=== PATIENT | female | born 1940 | race Caucasian/White ===

== ENCOUNTER 2020-05-06 08:02 | Outpatient (REF) | payer MEDICARE, OTHER, SELFPAY | END 2020-05-06 08:03 | disposition home or self-care (01) | LOC: HO.LAB 08:02 | PROVIDERS: PCP Internal Medicine; Visit Provider Internal Medicine | DX: Z20.828 Contact with and (suspected) exposure to other viral communicable diseases (principal) | CPT/HCPCS: U0003 ==

== ENCOUNTER 2021-03-13 08:26 | Outpatient (REF) | payer MEDICARE, OTHER, SELFPAY ==
--- NOTE | ~2021-03-13 | MM_ITS ---
EXAMINATION: MM SCREENING DIGITAL BREAST TOMOSYNTHESIS, BILATERAL CLINICAL INFORMATION: Screening. Asymptomatic. The lifetime risk of breast cancer based on the Tyrer-Cuzick Model is 2%. COMPARISON: Mammography: 03/07/2020, 03/02/2019, 01/21/2018 TECHNIQUE: Digital breast tomosynthesis is performed in both the craniocaudal and mediolateral oblique views along with computer-aided detection (CAD). Synthesized 2D images are generated from the tomosynthesis. Additional right MLO view is provided. FINDINGS: There are scattered areas of fibroglandular density (ACR BI-RADS breast composition Category b). There are no significant masses, abnormal calcifications, or other abnormalities. Parenchymal pattern is similar to prior studies. No developing density. The axilla and skin contours are unremarkable. MM/MM tomosynthesis screening BI IMPRESSION: No mammographic evidence of malignancy. ASSESSMENT: BI-RADS 1: Negative RECOMMENDATION: Routine annual mammography screening. This patient's information was entered into a reminder system with a target due date for their next mammogram.
== END 2021-03-13 08:27 | disposition home or self-care (01) ==
LOC: HO.MAMMO 08:26
PROVIDERS: PCP Internal Medicine; Visit Provider Internal Medicine
DX: Z12.31 Encounter for screening mammogram for malignant neoplasm of breast (principal)
CPT/HCPCS: 77063; 77067

== ENCOUNTER 2021-06-16 15:26 | Outpatient (REF) | payer MEDICARE, OTHER, SELFPAY ==
--- NOTE | ~2021-06-16 | US_ITS ---
EXAMINATION: US VENOUS ULTRASOUND WITH DOPPLER LOWER EXTREMITY, LEFT CLINICAL INFORMATION: Left leg edema. COMPARISON: None TECHNIQUE: Ultrasound of the deep veins is performed from the hip to the calf with compression sonography and color and pulse Doppler assessment. Spectral analysis with color-flow imaging is performed. FINDINGS: There is normal venous compression and respiratory variation and augmented flow. The visualized common femoral vein, superficial femoral vein, profunda femoral vein, popliteal vein, and the trifurcation region shows no evidence of deep venous thrombosis. There is no significant popliteal fossa cyst. Normal sized lymph node with a central echogenic fatty hilum, a benign morphologic feature, seen in the left proximal thigh. If the patient's symptoms persist, followup ultrasound in 5 days 7 days might be of value to exclude proximal propagation from a non-visualized calf vein. US/US venous duplex LE IMPRESSION: No DVT demonstrated in the left lower extremity.
== END 2021-06-16 15:27 | disposition home or self-care (01) ==
LOC: HO.US 15:26
PROVIDERS: Visit Provider Physician Assistant
DX: R60.0 Localized edema (principal)
CPT/HCPCS: 93971

== ENCOUNTER 2022-03-19 09:19 | Outpatient (REF) | payer MEDICARE, OTHER, SELFPAY ==
--- NOTE | ~2022-03-19 | MM_ITS ---
EXAMINATION: MM SCREENING DIGITAL BREAST TOMOSYNTHESIS, BILATERAL CLINICAL INFORMATION: Screening. Asymptomatic. The lifetime risk of breast cancer based on the Tyrer-Cuzick Model is under 2%. COMPARISON: Mammography: 03/13/2021, 03/07/2020, 03/02/2020 TECHNIQUE: Digital breast tomosynthesis is performed in both the craniocaudal and mediolateral oblique views along with computer-aided detection (CAD). Synthesized 2D images are generated from the tomosynthesis. FINDINGS: There are scattered areas of fibroglandular density (ACR BI-RADS breast composition Category b). There are no significant masses, abnormal calcifications, or other abnormalities. Parenchymal pattern is similar to prior studies. There is no developing density or architectural abnormality. The axilla and skin contours are unremarkable. No significant changes. MM/MM tomosynthesis screening BI IMPRESSION: No mammographic evidence of malignancy. ASSESSMENT: BI-RADS 1: Negative RECOMMENDATION: Routine annual mammography screening. This patient's information was entered into a reminder system with a target due date for their next mammogram.
== END 2022-03-19 09:20 | disposition home or self-care (01) ==
LOC: HO.MAMMO 09:19
PROVIDERS: PCP Internal Medicine; Visit Provider Internal Medicine
DX: Z12.31 Encounter for screening mammogram for malignant neoplasm of breast (principal)
CPT/HCPCS: 77063; 77067

== ENCOUNTER 2022-06-15 09:37 | Outpatient (REF) | payer MEDICARE, OTHER, SELFPAY ==
[2022-06-15 14:35] LABS: Anion Gap 12 (12-20); Blood Urea Nitrogen 20 mg/dL (9-16); Calcium 9.4 mg/dL (8.4-10.2); Carbon Dioxide 30 mmol/L (22-29); Chloride 92 mmol/L (96-108); Estimated Glomerular Filt Rate > 60; Glucose Random 101 mg/dL (60-115); Potassium 3.4 mmol/L (3.3-5.1); Sodium 131 mmol/L (135-145)
== END 2022-06-15 09:38 | disposition home or self-care (01) ==
LOC: HO.MANLDS 09:37
PROVIDERS: Visit Provider Internal Medicine
DX: E87.6 Hypokalemia (principal)
CPT/HCPCS: 36415; 80048

== ENCOUNTER → 2022-09-08 08:40 | Outpatient (BNVA) | payer MEDICARE, OTHER, SELFPAY | PROVIDERS: PCP Internal Medicine; Referring Provider Internal Medicine; Visit Provider Internal Medicine Cardiovascular Disease | DX: I48.0 Paroxysmal atrial fibrillation (principal); I44.7 Left bundle-branch block, unspecified; Z95.2 Presence of prosthetic heart valve | CPT/HCPCS: 93005; 99202 ==

== ENCOUNTER → 2022-09-21 13:37 | Outpatient (REF) | payer MEDICARE, OTHER, SELFPAY ==
--- NOTE | 2022-09-21 13:40 | HM_ITS ---
Conclusion: 1. Patient was monitored for total period of 6 days and 16 hours 2. There is artifact and loss of data about 12.4% of the time 3. Baseline was normal sinus rhythm with average heart of 81 beats per minute with underlying bundle-branch block 4. No significant pauses were identified during identifiable strips 5. No obvious episodes of atrial fibrillation noted 6. Total of 48,024 PACs accounting for 7.1% of total beats account for frequent PACs. Very frequent short runs of SVT with longest lasting 9 beats and the fastest 154 beats per minute 7. Total of 40,038 PVCs accounting for about 6% total beats account for frequent PVCs 8. No patient reported events MTDD
--- NOTE | 2022-09-21 13:40 | CA_ITS ---
Transthoracic Echocardiogram Patient (Last, First, Middle): Michelle Lai, Gender: Female Date of : 1940 Age: 82 Procedure Date: 09/21/2022 Procedure Type: Transthoracic Echocardiogram Location: OP Height: 162. cm Weight: 66.23 kg BSA: 1.71 m2 Heart Rate: 65 bpm BP: 120 / 70 mmHg Mail Teller: MAKENZIE Referring MD: Gagan Barnard MD Donor Support Technician: Gagan Barnard MD Symptoms: Z95.2 - Presence of prosthetic heart valve Study Quality: Adequate ECG Rhythm: normal sinus rhythm with frequent ectopy Conclusions: - 1. Normal LV systolic function with impaired relaxation filling pattern with elevated filling pressures 2. Normally function bioprosthetic aortic valve with mean gradient of 8 mmHg 3. Normal RV systolic pressure 4. [id number] mitral regurgitation 5. No pericardial effusion Findings Left Ventricle Normal left ventricular size, thickness, and systolic function. The visually estimated ejection fraction is between 55-60%. Spectral Doppler is indicative of an impaired relaxation filling pattern. Elevated left ventricular end diastolic pressure. E/E prime ratio is >15, consistent with elevated filling pressures. Right Ventricle Normal right ventricular cavity size and systolic function. Atria The left atrium is likely dilated. There is no evidence of interatrial shunt. The right atrium is normal in size. Aortic Valve A bioprosthetic aortic valve is present. The prosthetic aortic valve appears to be functioning normally. The mean gradient is 8 mmHg. the valve is well seated with no abnormal rocking motion Mitral Valve There is mild anterior and posterior mitral leaflet thickening. There is mild mitral annular calcification. There is mild to moderate mitral valve regurgitation. There is no mitral valve stenosis. Pulmonic Valve The pulmonic valve was not well visualized. Tricuspid Valve Likely normal tricuspid valve structure and function. There is mild tricuspid valve regurgitation. The right ventricular systolic pressure is normal. The right ventricular systolic pressure is 27 mmHg. Normal right atrial pressure. There is no evidence of pulmonary hypertension. Great Vessels All visible segments of the aorta are normal in size. The pulmonary artery was not well visualized. Venous The inferior vena cava is normal in size and collapses greater than 50% with inspiration. Pericardium/Pleural There is no evidence of pericardial effusion. Prior Study Comparison No prior study available for comparison. Measurements 2D Linear Measurements IVSd: 0.96 0.6-0.9/0.6-1.0 cm LVIDd: 4.94 3.9-5.3/4.2-5.9 cm LVIDd Index: 2.89 2.4-3.2/2.2-3.1 cm/m2 LVIDs: 3.44 2.0-3.6 cm LVPWd: 0.98 0.7-1.1 cm LA Diam: 4.40 2.7-3.8/3.0-4.0 cm LAIDs Index: 2.57 1.5-2.3 cm/m2 LV Mass: 213.61 67-162/88-224 g LV Mass Index: 124.92 43-95/49-115 g/m2 LVOT Diam: 1.70 3.0+(-)1.3 cm 2D Systolic Function EF 4C: 54.90 >55% EF 2C: 57.90 >55% EF BiP: 55.70 >55% Mitral Valve MV Pk E: 0.93 MV PK A: 1.05 MV Decel Time: 237.00 E/A: 0.90 E'Lateral: 3.24 E'Medial: 4.54 E/E' Med: 20.60 E/E' Lat: 28.80 PHT: 69.00 MVA PHT: 3.19 Decel [place]: 3.95 Aortic Valve AoV Pk Mamadou: 1.83 AoV Mn Mamadou: 1.36 AoV VTI: 0.35 AoV Pk Grad: 13.00 Aov Mn Grad: 8.00 KALA Cont.VTI: 1.41 LVOT LVOT Pk Mamadou: 1.07 LVOT Mn Mamadou: 0.75 LVOT VTI: 0.22 LVOT Pk Grad: 5.00 LVOT Mn Grad: 3.00 LVOT Diam: 1.70 LVOT Area: 2.27 Diastolic Function MV Pk E: 0.93 MV Pk A: 1.05 E/A: 0.90 E'Medial: 4.54 E/E' Med: 20.60 E' Laterial: 3.24 E/E' Lat: 28.80 Right Ventricle TAPSE (mm): 26.00 TVS' Mamadou: 11.20 Tricuspid Valve TR Pk Mamadou: 2.44 TR Pk Grad: 24.00 RA Press: 3.00 RVSP: 27.00 Great Vessels Aorta Sinus of Valsalva: 2.60 2.0-3.5 cm Ao Asc: 3.40 2.1-3.4 cm Pulmonary Valve PV Pk Mamadou: 1.02 Peak PV Grad: 4.00 Updated in Other Vendor System with Status of Final Gagan Barnard MD electronically signed on 09/21/2022 4:52:00 PM with status of Final
== END ==
LOC: HO.CARD 13:37
PROVIDERS: PCP Internal Medicine; Visit Provider Internal Medicine Cardiovascular Disease
DX: I48.0 Paroxysmal atrial fibrillation (principal); Z95.2 Presence of prosthetic heart valve
CPT/HCPCS: 93242; 93306

== ENCOUNTER 2022-09-26 08:34 | Inpatient (IN) | payer MEDICARE, OTHER, SELFPAY ==
[2022-09-26] VITALS (16 sets, daily range): BP systolic 122–177; BP diastolic 63–112; PULSE 74–92; RESP 14–20; TEMP 36.4–37.2; O2SAT 93–97; BMI 25.0; BMI 25.4
--- NOTE | ~2022-09-26 | XR_ITS ---
EXAMINATION: XR CHEST CLINICAL INFORMATION: Cough. COMPARISON: None available. TECHNIQUE: 2 views of the chest were obtained. FINDINGS: The lungs are expanded and clear. The heart size and pulmonary vascularity is normal. Aortic valve stent and alarm security or surveillance monitor overlying the left upper chest wall. No gross bony abnormality seen. XR/XR chest 2V IMPRESSION: No acute cardiopulmonary process seen.
--- NOTE | 2022-09-26 09:17 | ED_ITS ---
HPI - Syncope General Chief Complaint: Syncope Stated Complaint: chest cold Time Seen by Provider: 09/26/22 09:16 Source: patient and family Mode of arrival: wheelchair Limitations: no limitations History of Present Illness HPI narrative: 82 yo female with history of afib on eliquis, HTN, known LBBB, TAVR secondary to aortic stenosis here with complaints of cough, chest congestion, wheezing x 1 week. Her partner has had similar symptoms. No fevers, chest pain, shortness of breath, leg swelling or pain. Cough is worsened at nighttime. Did travel to [place] about a month ago. Has not done any COVID testing. Is supposed to be using an inhaler daily (unsure of name) but does not use it because it costs 90 dollars. Today while having a bowel movement on the toilet she developed cold sweats and felt lightheaded and laid herself on the floor to call her partner. Per patient he brought her walker and while she was sitting in the walker she continued to feel lightheaded/have sweats and states he told me my head rolled back and I briefly passed out. There was no fall to the ground or injury. Denies associated headache, vomiting, palpitations, chest pain. Of note, patient recently started care with a photo optics technician [place] at [facility] ([place]). She states she has been doing well since having her TAVR with no cardiac complaints. States he wanted to get his own tests so I had an echocardiogram this week and have a holter monitor in place. Related Data Home Medications Medication Instructions Recorded Confirmed apixaban 5 mg tablet (Eliquis) 5 mg PO BID 09/08/22 09/26/22 chlorthalidone 25 mg tablet 25 mg PO DAILY 09/08/22 09/26/22 fluticasone propionate 50 1 spray intranasal BID 09/08/22 09/26/22 mcg/actuation nasal spray,suspension metoprolol succinate 50 mg 50 mg PO DAILY 09/08/22 09/26/22 tablet,extended release 24 hr Allergies Allergy/AdvReac Type Severity Reaction Status Date / Time No Known Drug Allergies Allergy none Verified 09/08/22 08:59 Review of Systems Review of Systems: Yes all other systems are reviewed and are negative Constitutional: Constitutional: Reports no additional constitutional complaints, Denies body ache(s), Denies chills, Denies fever(s), Denies headache(s) and Denies weakness Eyes: Eyes: Reports no additional eye complaints and Denies change in vision ENT: Reports system reviewed and no additional complaints, except as documented, Reports dizziness, Denies headache(s), Reports nasal congestion, Denies nasal discharge and Denies neck pain Cardiovascular: Cardiovascular: Reports no additional cardiovascular complaints, Denies chest pain, Reports syncope, Denies leg edema and Denies dyspnea Respiratory: Respiratory: Reports no additional respiratory complaints, Reports cough, Denies dyspnea and Reports wheezing Gastrointestinal: Gastrointestinal: Reports no additional gastrointestinal complaints, Denies abdominal pain, Denies diarrhea, Denies nausea and Denies v omiting Genitourinary: Genitourinary: Reports no additional female genitourinary complaints and Denies urinary incontinence Musculoskeletal: Musculoskeletal: Reports no additional musculoskeletal complaints, Denies back pain, Denies arthralgias, Denies joint swelling, Denies neck pain, Denies numbness and Denies tingling Integumentary/Breasts: Skin/Breast: Reports system reviewed and no additional complaints, except as docu and Denies rash Neurologic: Reports system reviewed and no additional complaints, except as documented, Denies Abnormal speech present, Reports dizziness, Reports syncope, Denies headache(s), Denies numbness, Denies tingling and Denies weakness Allergic/Immunologic: Allergic/Immunologic: Reports wheezing PMFSH Past Medical History Attestation statement: The following information was validated with the patient. Source: old records reviewed and nursing notes reviewed Medical History HTN (hypertension) Paroxysmal atrial fibrillation Surgical History History of appendectomy History of hysterectomy S/P TAVR (transcatheter aortic valve replacement) Family History Family History Mother No problems noted. Father Bladder cancer Daughter Autoimmune disease Social History Social History Alcohol intake: current Alcohol intake frequency: 0-2 drinks per day Alcohol type: wine and hard liquor Patient Tobacco Use Status: Former Tobacco user Years Smoked: 10 +/- Smoked in Last 30 Days: No Use of substances other than those prescribed or required for medical reasons: No Advance Directives: No Nutrition Risks: No Nutritional Risk Physical Exam Vital Signs: Vital Signs: Last Vital Signs Temp 98.0 F 09/26/22 13:27 Pulse 84 09/26/22 13:27 Resp 17 09/26/22 13:27 BP 139/65 09/26/22 13:27 Pulse Ox 93 09/26/22 13:27 O2 Del Method Room Air 09/26/22 13:27 BMI result Body Mass Index 25.0 Const: General: cooperative, healthy appearing, comfortable and no acute distress Orientation/consciousness: patient oriented x3 Limitations: no limitations HEENT: Head: Yes normal to inspection Ears: hearing grossly normal bilaterally and TM's normal bilaterally General nose exam: Normal external nose present Face and sinus: Yes normal facial exam Mouth: Normal oral and palatal mucosa present Throat: Yes posterior oropharynx normal, Yes tonsils normal and Yes uvula midline Eyes: General: appearance normal, both eyes and all related structures Pupils: Equal, round and reactive pupils present Neck: Neck: Yes normal visual inspection Chest: Chest palpation & inspection: normal inspection of the chest Resp: Other: Mild exp wheezing Effort & Inspection: normal respiratory effort Cardio: Rate: regular rate Rhythm: regular rhythm Peripheral pulses: Peripheral pulses 2+ throughout GI: Inspection: Yes normal to inspection Palpation (GI): Soft to palpation and nontender Auscultation: normal bowel sounds Back/Spine/Pelvis: Thoracic/Lumbar Spine: thoracic and lumbar spine normal to inspection Skin: General skin exam: no rashes or lesions noted Neuro: General: patient oriented x3, moves all extremities, no focal motor deficits and normal sensation to monofilament Cranial nerves: Yes CN's II-XII intact bilaterally, Yes Equal, round and reactive pupils present, Yes Bilaterally intact EOM present, Yes Nystagmus not present, Yes Normal facial strength present and Yes Midline tongue present Cognition (Neuro): normal cognition Speech: No Abnormal speech present Gait exam (Neuro): Normal gait present Motor exam (neuro): 5/5 motor strength present throughout Sensory Exam: Normal double simultaneous stimulation for sensation Extrem: General: Yes normal to inspection, Yes no pedal edema and Yes no calf tenderness Medications Administered Generic Name Dose Route Start Last Admin Trade Name Freq PRN Reason Stop Dose Admin Apixaban 5 mg 09/26/22 12:35 09/26/22 12:59 Apixaban 5 Mg Tablet PO 5 mg BID SOPHIA Administration Discontinued Medications Generic Name Dose Route Start Last Admin Trade Name Evens PRN Reason Stop Dose Admin Albuterol Sulfate 2 puff 09/26/22 09:39 09/26/22 11:24 Albuterol Sulfate 90 Mcg 8 Gm Inhaler INHALE 09/26/22 09:40 2 puff ONCE ONE Administration Sodium Chloride 1,000 mls @ 999 mls/hr 09/26/22 11:45 09/26/22 12:55 Ns IV 09/26/22 12:45 999 mls/hr .Q1H1M SOPHIA Administration Metoprolol Succinate 50 mg 09/26/22 12:35 09/26/22 13:27 Metoprolol Succinate Er 50 Mg Tab.Er.24h PO Not Given DAILY SOPHIA Protocol Medical Decision Making Medical Decision Making [facility] Narrative: 82 yo female here with 1 week of cough, chest congestion, wheezing with recent sick contact. This morning while having a BM patient initially had a near syn copal episode followed by a witnessed syncopal episode while at rest by family. On arrival A&Ox4. Normal neuro exam. LS with mild exp wheezing throughout. VSS. Will obtain EKG, labs, orthostatics, CXR, viral testing Will give albuterol MDI Differential Diagnosis Differential Diagnoses: The differential diagnosis associated with the presentation includes anemia, electrolyte abnormality, orthostatic hypotension, acs, arrhythmia less likely SAH PNA, viral syndrome, CHF, less likely PE Admission/Observation Consideration of admission/observation: Escalation of care including admission/observation considered Patient with hyponatremia, syncope w/ [place] syncope score 3. Consult Healthcare Provider Management of the patient was discussed with: Hospitalist Spoke to Dr Lemus who accepted admission Lab Data [facility] Lab Attestation statement: I reviewed the patient's lab results. 09/26/22 09:57 09/26/22 09:57 Labs: Lab Results 09/26/22 09/26/22 09/26/22 Range/Units 05:02 09:53 09:57 WBC 6.6 (4.8-10.8) X10*3/uL RBC 4.55 (4.20-5.50) X10*6/uL Hgb 14.0 (12.0-16.0) g/dl Hct 39.8 (37.0-47.0) % MCV 87.5 (80.0-98.0) fL MCH 30.8 (27.0-33.0) pg MCHC 35.2 H (31.0-35.0) g/dl RDW 12.5 (11.0-16.0) % Plt Count 166 (160-400) X10*3/uL MPV 9.8 (9.4-12.3) fL Immature Gran % (Auto) 0.6 H (0.0-0.4) % Neut % (Auto) 80.9 H (45-73) % Lymph % (Auto) 8.5 L (20-40) % [place] % (Auto) 8.4 (2-11) % Eos % (Auto) 1.1 (0-4) % Baso % (Auto) 0.5 (0-2) % Lymph # (Auto) 0.6 L (1.2-4.9) X10*3/uL [place] # (Auto) 0.6 (0.1-1.2) X10*3/uL Eos # (Auto) 0.1 (0.0-0.4) X10*3/uL Baso # (Auto) 0.0 (0.0-0.2) X10*3/uL Abs Immat Gran (auto) 0.04 H (0.00-0.03) X10*3/uL Absolute Neuts (auto) 5.3 (2.0-8.3) x10*3/uL Absolute Nucleated RBC 0.000 (0.0-0.012) X10*3/uL Nucleated RBC % (auto) 0.0 (0.0-0.2) /100WBC PT (10.0-13.1) SEC INR (0.9-1.1) Sodium (135-145) mmol/L Potassium (3.3-5.1) mmol/L Chloride (96-108) mmol/L Carbon Dioxide (22-29) mmol/L Anion Gap (12-20) BUN (9-16) mg/dL Creatinine (0.5-1.4) mg/dL Estim Creat Clear Calc Estimated GFR Random Glucose (60-115) mg/dL Osmolality (281-305) mosm/kg Calcium (8.4-10.2) mg/dL Magnesium (1.6-2.6) mg/dL Total Bilirubin (0.0-1.0) mg/dL Direct Bilirubin (0.0-0.5) mg/dL AST (5-31) U/L ALT (0-31) U/L Alkaline Phosphatase (39-117) U/L Troponin I High Sens (<3.5-17.0) ng/L B-Natriuretic Peptide (<100) pg/mL Total Protein (6.5-8.0) g/dL Albumin (3.5-5.0) g/dL Urine Color Urine Appearance Urine pH (5.0-9.0) Ur Specific [place] (1.005-1.025) Urine Protein (Neg-Trace) mg/dL Urine Glucose (UA) (Negative) mg/dL Urine Ketones (Negative) mg/dL Urine Blood (Negative) Urine Nitrite (Negative) Ur Leukocyte Esterase (Negative) Urine RBC (0-2) /HPF Urine WBC (0-5) /HPF Ur Squamous Epith Cells (0-2) /HPF Urine Bacteria (None Seen) Hyaline Casts (0-2) /LPF Urine Osmolality 658 (373-1093) mosm/kg Ur Random Sodium mmol/L Influenza Type A (PCR) NEGATIVE (Negative) Influenza Type B (PCR) NEGATIVE (Negative) RSV RNA Qual (PCR) NEGATIVE (Negative) SARS-CoV-2 RNA (RT-PCR) NEGATIVE (Negative) 09/26/22 09/26/22 09/26/22 Range/Units 09:57 09:57 10:42 WBC (4.8-10.8) X10*3/uL RBC (4.20-5.50) X10*6/uL Hgb (12.0-16.0) g/dl Hct (37.0-47.0) % MCV (80.0-98.0) fL MCH (27.0-33.0) pg MCHC (31.0-35.0) g/dl RDW (11.0-16.0) % Plt Count (160-400) X10*3/uL MPV (9.4-12.3) fL Immature Gran % (Auto) (0.0-0.4) % Neut % (Auto) (45-73) % Lymph % (Auto) (20-40) % [place] % (Auto) (2-11) % Eos % (Auto) (0-4) % Baso % (Auto) (0-2) % Lymph # (Auto) (1.2-4.9) X10*3/uL [place] # (Auto) (0.1-1.2) X10*3/uL Eos # (Auto) (0.0-0.4) X10*3/uL Baso # (Auto) (0.0-0.2) X10*3/uL Abs Immat Gran (auto) (0.00-0.03) X10*3/uL Absolute Neuts (auto) (2.0-8.3) x10*3/uL Absolute Nucleated RBC (0.0-0.012) X10*3/uL Nucleated RBC % (auto) (0.0-0.2) /100WBC PT 13.4 H (10.0-13.1) SEC INR 1.2 H (0.9-1.1) Sodium 126 L (135-145) mmol/L Potassium 3.3 (3.3-5.1) mmol/L Chloride 85 L (96-108) mmol/L Carbon Dioxide 28 (22-29) mmol/L Anion Gap 16 (12-20) BUN 12 (9-16) mg/dL Creatinine 0.68 (0.5-1.4) mg/dL Estim Creat Clear Calc 59.7 Estimated GFR > 60 Random Glucose 107 (60-115) mg/dL Osmolality (281-305) mosm/kg Calcium 8.8 D (8.4-10.2) mg/dL Magnesium 2.3 (1.6-2.6) mg/dL Total Bilirubin 0.8 (0.0-1.0) mg/dL Direct Bilirubin 0.2 (0.0-0.5) mg/dL AST 23 (5-31) U/L ALT 13 (0-31) U/L Alkaline Phosphatase 53 (39-117) U/L Troponin I High Sens (<3.5-17.0) ng/L B-Natriuretic Peptide 111 H (<100) pg/mL Total Protein 6.2 L (6.5-8.0) g/dL Albumin 4.0 (3.5-5.0) g/dL Urine Color Urine Appearance Urine pH (5.0-9.0) Ur Specific [place] (1.005-1.025) Urine Protein (Neg-Trace) mg/dL Urine Glucose (UA) (Negative) mg/dL Urine Ketones (Negative) mg/dL Urine Blood (Negative) Urine Nitrite (Negative) Ur Leukocyte Esterase (Negative) Urine RBC (0-2) /HPF Urine WBC (0-5) /HPF Ur Squamous Epith Cells (0-2) /HPF Urine Bacteria (None Seen) Hyaline Casts (0-2) /LPF Urine Osmolality (373-1093) mosm/kg Ur Random Sodium mmol/L Influenza Type A (PCR) (Negative) Influenza Type B (PCR) (Negative) RSV RNA Qual (PCR) (Negative) SARS-CoV-2 RNA (RT-PCR) (Negative) 09/26/22 09/26/22 09/26/22 Range/Units 10:42 10:47 12:15 WBC (4.8-10.8) X10*3/uL RBC (4.20-5.50) X10*6/uL Hgb (12.0-16.0) g/dl Hct (37.0-47.0) % MCV (80.0-98.0) fL MCH (27.0-33.0) pg MCHC (31.0-35.0) g/dl RDW (11.0-16.0) % Plt Count (160-400) X10*3/uL MPV (9.4-12.3) fL Immature Gran % (Auto) (0.0-0.4) % Neut % (Auto) (45-73) % Lymph % (Auto) (20-40) % [place] % (Auto) (2-11) % Eos % (Auto) (0-4) % Baso % (Auto) (0-2) % Lymph # (Auto) (1.2-4.9) X10*3/uL [place] # (Auto) (0.1-1.2) X10*3/uL Eos # (Auto) (0.0-0.4) X10*3/uL Baso # (Auto) (0.0-0.2) X10*3/uL Abs Immat Gran (auto) (0.00-0.03) X10*3/uL Absolute Neuts (auto) (2.0-8.3) x10*3/uL Absolute Nucleated RBC (0.0-0.012) X10*3/uL Nucleated RBC % (auto) (0.0-0.2) /100WBC PT (10.0-13.1) SEC INR (0.9-1.1) Sodium (135-145) mmol/L Potassium (3.3-5.1) mmol/L Chloride (96-108) mmol/L Carbon Dioxide (22-29) mmol/L Anion Gap (12-20) BUN (9-16) mg/dL Creatinine (0.5-1.4) mg/dL Estim Creat Clear Calc Estimated GFR Random Glucose (60-115) mg/dL Osmolality 259 L (281-305) mosm/kg Calcium (8.4-10.2) mg/dL Magnesium (1.6-2.6) mg/dL Total Bilirubin (0.0-1.0) mg/dL Direct Bilirubin (0.0-0.5) mg/dL AST (5-31) U/L ALT (0-31) U/L Alkaline Phosphatase (39-117) U/L Troponin I High Sens 19.3 H (<3.5-17.0) ng/L B-Natriuretic Peptide (<100) pg/mL Total Protein (6.5-8.0) g/dL Albumin (3.5-5.0) g/dL Urine Color Yellow Urine Appearance Clear Urine pH 7.0 (5.0-9.0) Ur Specific [place] 1.020 (1.005-1.025) Urine Protein Trace (Neg-Trace) mg/dL Urine Glucose (UA) Negative (Negative) mg/dL Urine Ketones 15 (Negative) mg/dL Urine Blood Negative (Negative) Urine Nitrite Negative (Negative) Ur Leukocyte Esterase Large (3+) H (Negative) Urine RBC 3-5 H (0-2) /HPF Urine WBC 6-10 H (0-5) /HPF Ur Squamous Epith Cells 6-10 (0-2) /HPF Urine Bacteria None Seen (None Seen) Hyaline Casts 0-2 (0-2) /LPF Urine Osmolality (373-1093) mosm/kg Ur Random Sodium mmol/L Influenza Type A (PCR) (Negative) Influenza Type B (PCR) (Negative) RSV RNA Qual (PCR) (Negative) SARS-CoV-2 RNA (RT-PCR) (Negative) 09/26/22 Range/Units 12:15 WBC (4.8-10.8) X10*3/uL RBC (4.20-5.50) X10*6/uL Hgb (12.0-16.0) g/dl Hct (37.0-47.0) % MCV (80.0-98.0) fL MCH (27.0-33.0) pg MCHC (31.0-35.0) g/dl RDW (11.0-16.0) % Plt Count (160-400) X10*3/uL MPV (9.4-12.3) fL Immature Gran % (Auto) (0.0-0.4) % Neut % (Auto) (45-73) % Lymph % (Auto) (20-40) % [place] % (Auto) (2-11) % Eos % (Auto) (0-4) % Baso % (Auto) (0-2) % Lymph # (Auto) (1.2-4.9) X10*3/uL [place] # (Auto) (0.1-1.2) X10*3/uL Eos # (Auto) (0.0-0.4) X10*3/uL Baso # (Auto) (0.0-0.2) X10*3/uL Abs Immat Gran (auto) (0.00-0.03) X10*3/uL Absolute Neuts (auto) (2.0-8.3) x10*3/uL Absolute Nucleated RBC (0.0-0.012) X10*3/uL Nucleated RBC % (auto) (0.0-0.2) /100WBC PT (10.0-13.1) SEC INR (0.9-1.1) Sodium (135-145) mmol/L Potassium (3.3-5.1) mmol/L Chloride (96-108) mmol/L Carbon Dioxide (22-29) mmol/L Anion Gap (12-20) BUN (9-16) mg/dL Creatinine (0.5-1.4) mg/dL Estim Creat Clear Calc Estimated GFR Random Glucose (60-115) mg/dL Osmolality (281-305) mosm/kg Calcium (8.4-10.2) mg/dL Magnesium (1.6-2.6) mg/dL Total Bilirubin (0.0-1.0) mg/dL Direct Bilirubin (0.0-0.5) mg/dL AST (5-31) U/L ALT (0-31) U/L Alkaline Phosphatase (39-117) U/L Troponin I High Sens (<3.5-17.0) ng/L B-Natriuretic Peptide (<100) pg/mL Total Protein (6.5-8.0) g/dL Albumin (3.5-5.0) g/dL Urine Color Urine Appearance Urine pH (5.0-9.0) Ur Specific [place] (1.005-1.025) Urine Protein (Neg-Trace) mg/dL Urine Glucose (UA) (Negative) mg/dL Urine Ketones (Negative) mg/dL Urine Blood (Negative) Urine Nitrite (Negative) Ur Leukocyte Esterase (Negative) Urine RBC (0-2) /HPF Urine WBC (0-5) /HPF Ur Squamous Epith Cells (0-2) /HPF Urine Bacteria (None Seen) Hyaline Casts (0-2) /LPF Urine Osmolality (373-1093) mosm/kg Ur Random Sodium 51.0 mmol/L Influenza Type A (PCR) (Negative) Influenza Type B (PCR) (Negative) RSV RNA Qual (PCR) (Negative) SARS-CoV-2 RNA (RT-PCR) (Negative) Independent Interpretation I performed an independent interpretation of an: EKG and Plain X-Ray Interpretation: I independently reviewed the EKG which shows a sinus rhythm with a rate 93 with PVCs, nonspecific intraventricular block with QRS 136, QTC 477 I independently reviewed the x-rays again with radiologist report Radiology Impression Discussion of test interpretation with radiology: I have reviewed the radiologist's reading. External Record Review External record reviewed: Outpatient record and Prior outpatient radiology Had cardiac cath 11/2020 as part of preop clearance for TAVR which showed [id number] coronary artery disease (LAD <30%, RCA <30%) Had echocardiogram 09/21/2022 which showed normal LV systolic function, normal functioning aortic valve, normal RV systolic pressure, mild to moderate mitral regurgitation, no pericardial effusion, EF 55-60% Discharge Plan Discharge Clinical Impression: Syncope, Acute hyponatremia Patient Disposition: Admitted As Inpatient
--- NOTE | 2022-09-26 09:20 | ECG_ITS ---
Test Reason : SYNCOPE Blood Pressure : / mmHG Vent. Rate : 093 BPM Atrial Rate : 093 BPM P-R Int : 164 ms QRS Dur : 136 ms QT Int : 384 ms P-R-T Axes : 059 -51 080 degrees QTc Int : 477 ms Sinus rhythm with Premature supraventricular complexes and with occasional Premature ventricular complexes Left axis deviation Non-specific intra-ventricular conduction block Possible Anterolateral infarct , age undetermined Abnormal ECG No previous ECGs available Referred By: Shahrzad Miller Electronically Signed By:JEFFRY SRIVASTAVA MD
--- NOTE | 2022-09-26 10:02 | PC.NURSE ---
pt AOx3, reporting persistent cough, diaphoresis and 2x syncope today. IV inserted, labs drawn. X ray with patient. call ibanez within reach will continue monitor
[2022-09-26 10:06] LABS: MANUAL DIFF FLAG NO
[2022-09-26 10:09] LABS: Basophils Percent Auto 0.5 % (0-2); Eosinophils Absolute Auto 0.1 X10*3/uL (0.0-0.4); Eosinophils Percent Auto 1.1 % (0-4); Hematocrit 39.8 % (37.0-47.0); Imm Gran Abs Auto 0.04 X10*3/uL (0.00-0.03); Imm Gran Pct Auto 0.6 % (0.0-0.4); Lymphocytes Absolute Auto 0.6 X10*3/uL (1.2-4.9); Lymphocytes Percent Auto 8.5 % (20-40); Mean Corpuscular HGB Conc 35.2 g/dl (31.0-35.0); Mean Corpuscular Hemoglobin 30.8 pg (27.0-33.0); Mean Corpuscular Volume 87.5 fL (80.0-98.0); Mean Platelet Volume 9.8 fL (9.4-12.3); Monocytes Absolute Auto 0.6 X10*3/uL (0.1-1.2); Monocytes Percent Auto 8.4 % (2-11); Neutrophils Absolute Auto 5.3 x10*3/uL (2.0-8.3); Neutrophils Percent Auto 80.9 % (45-73); Platelet Count 166 X10*3/uL (160-400); Red Blood Count 4.55 X10*6/uL (4.20-5.50); Red Cell Distribution Width 12.5 % (11.0-16.0); White Blood Count 6.6 X10*3/uL (4.8-10.8)
[2022-09-26 10:15] LABS: INTERNATIONAL NORM RATIO 1.2 (0.9-1.1); Prothrombin Time 13.4 SEC (10.0-13.1)
[2022-09-26 10:46] LABS: Influenza A PCR NEGATIVE (Negative); Influenza B PCR NEGATIVE (Negative); Resp Syncy Virus RNA Qual PCR NEGATIVE (Negative); SARS COV2 PCR INHOUSE NEGATIVE (Negative)
[2022-09-26 11:07] LABS: Alanine Aminotransferase 13 U/L (0-31); Alkaline Phosphatase 53 U/L (39-117); Anion Gap 16 (12-20); Aspartate Amino Transferase 23 U/L (5-31); Bilirubin Direct 0.2 mg/dL (0.0-0.5); Bilirubin Total 0.8 mg/dL (0.0-1.0); Blood Urea Nitrogen 12 mg/dL (9-16); Calcium 8.8 mg/dL (8.4-10.2); Carbon Dioxide 28 mmol/L (22-29); Chloride 85 mmol/L (96-108); Creatinine Clr Calc Pharmacy 59.7; Estimated Glomerular Filt Rate > 60; Glucose Random 107 mg/dL (60-115); Magnesium 2.3 mg/dL (1.6-2.6); Potassium 3.3 mmol/L (3.3-5.1); Sodium 126 mmol/L (135-145); Total Protein 6.2 g/dL (6.5-8.0)
[2022-09-26 11:13] LABS: Troponin-I High Sensitivity 19.3 ng/L (<3.5-17.0)
[2022-09-26] MEDS: Albuterol Sulfate 90 MCG 8 GM INHALER 2 PUFF INHALE (11:24)
[2022-09-26 12:07] LABS: Osmolality, Serum 259 mosm/kg (281-305)
[2022-09-26 12:09] LABS: B Type Natriuretic Peptide 111 pg/mL (<100)
[2022-09-26 12:27] LABS: Appearance Urine Clear; Color Urine Yellow; Glucose Urine UA Negative (Negative); Leukocyte Esterase Urine Large (3+) (Negative); Nitrite Urine Negative (Negative); UMIC TRIGGER UACC YES; Urine Blood Negative (Negative); Urine Ketones 15 mg/dL (Negative); Urine Protein Trace mg/dL (Neg-Trace)
[2022-09-26 12:29] LABS: Bacteria Urine None Seen (None Seen); Hyaline Casts Urine 0-2 /LPF (0-2); UACC Culture Trigger YES
--- NOTE | 2022-09-26 12:30 | P.HPHOSP_ITS ---
History of Present Illness Date of Service: 09/26/22 Chief Complaint: Weakness, URI An 82 years old lady with PMH of Afib on eliquis, TAVR, HTN who presents to the hospital complaining of 1 week of coughing and chest congestion complicated by fall and near syncope this morning. Reported that her partner has URI symptoms as well but this morning she went to herbathroom and developed cold sweats and felt lightheaded and too weak to stay up and had to lower her self down. once her frnd brought her the walker she stood up then seems to have syncope but denies losing conciousness. Denies any fever, chills, chest pain, palpitations, nausea, vomiting diarrhea or urinary symptoms. In ED found to have low Na level of 126 with no CXR. Admitted for further eval and treatment. Review of Systems Review of Systems: No fever, chills but reports generalized weakness No chest pain, palpitation No shortness of breath but has coughing No abdominal pain, nausea or vomiting No urinary symptoms No any rash or wounds PMFSH Medical History HTN (hypertension) Paroxysmal atrial fibrillation Family History Mother No problems noted. Father Bladder cancer Daughter Autoimmune disease Surgical History History of appendectomy History of hysterectomy S/P TAVR (transcatheter aortic valve replacement) Social History Alcohol intake: current Alcohol intake frequency: 0-2 drinks per day Alcohol type: wine and hard liquor Patient Tobacco Use Status: Former Tobacco user Years Smoked: 10 +/- Smoked in Last 30 Days: No Use of substances other than those prescribed or required for medical reasons: No Advance Directives: No Meds Allergies Allergy/AdvReac Type Severity Reaction Status Date / Time No Known Drug Allergies Allergy none Verified 09/08/22 08:59 Active Medications: Current Medications Acetaminophen (Acetaminophen 325 Mg Tablet) 650 mg PO Q6H PRN PRN Reason: Pain, Mild (Pain Scale 1-3) Sodium Chloride (Ns) 1,000 mls @ 999 mls/hr IV .Q1H1M [facility] Stop: 09/26/22 12:45 Ondansetron HCl (Ondansetron Hcl 4 Mg/2 Ml Vial) 4 mg IVPUSH Q8H PRN PRN Reason: Nausea and Vomiting Pharmacy Consult (Consult Rx Perform Med Rec) 1 each MISCELLANE ONCE PRN PRN Reason: Consult order Sodium Chloride (0.9 % Sodium Chloride Flush 3 Ml Syringe) 3 ml IVFLUSH QSHIFT [facility] Home Medications Medication Instructions Recorded Confirmed Last Taken Type apixaban 5 mg tablet (Eliquis) 5 mg PO BID 09/08/22 09/08/22 Unknown History chlorthalidone 25 mg tablet 25 mg PO DAILY 09/08/22 09/08/22 Unknown History fluticasone propionate 50 1 spray intranasal BID 09/08/22 09/08/22 Unknown History mcg/actuation nasal spray,suspension metoprolol succinate 50 mg 50 mg PO DAILY 09/08/22 09/08/22 Unknown History tablet,extended release 24 hr Physical Exam Vital Signs and Narrative: Vital Signs: Last Vital Signs Temp 98.4 F 09/26/22 12:17 Pulse 90 09/26/22 12:17 Resp 14 09/26/22 12:17 BP 153/75 H 09/26/22 12:17 Pulse Ox 97 09/26/22 12:17 O2 Del Method Room Air 09/26/22 12:17 BMI result Body Mass Index 25.0 Const: Other: Constitutional : Awake, interactive, not in distress Neck : Normal inspection, Supple Cardiovascular : RRR, no JVP, no lower extremity edema Respiratory : fair bilateral air entry, no crackles, scattered wheezes Gastrointestinal: soft, lax, Normal bowel sounds, Non tender Skin : Warm, Dry Neurological : Alert & oriented x3, No focal deficit Results Labs 09/26/22 09:57 09/26/22 10:42 Labs: Laboratory Results - last 24 hr 09/26/22 09/26/22 09/26/22 09:53 09:57 09:57 MCV 87.5 MCH 30.8 MCHC 35.2 H RDW 12.5 Plt Count 166 MPV 9.8 Immature Gran % (Auto) 0.6 H Neut % (Auto) 80.9 H Lymph % (Auto) 8.5 L Edmunds % (Auto) 8.4 Eos % (Auto) 1.1 Baso % (Auto) 0.5 Lymph # (Auto) 0.6 L Edmunds # (Auto) 0.6 Eos # (Auto) 0.1 Baso # (Auto) 0.0 Abs Immat Gran (auto) 0.04 H Absolute Neuts (auto) 5.3 Absolute Nucleated RBC 0.000 Nucleated RBC % (auto) 0.0 PT 13.4 H INR 1.2 H Anion Gap Estim Creat Clear Calc Estimated GFR Random Glucose Osmolality Calcium Magnesium Total Bilirubin Direct Bilirubin AST ALT Alkaline Phosphatase Troponin I High Sens B-Natriuretic Peptide Total Protein Albumin Urine Color Urine Appearance Urine pH Ur Specific [place] Urine Protein Urine Glucose (UA) Urine Ketones Urine Blood Urine Nitrite Ur Leukocyte Esterase Influenza Type A (PCR) NEGATIVE Influenza Type B (PCR) NEGATIVE RSV RNA Qual (PCR) NEGATIVE SARS-CoV-2 RNA (RT-PCR) NEGATIVE 09/26/22 09/26/22 09/26/22 09:57 10:42 10:42 MCV MCH MCHC RDW Plt Count MPV Immature Gran % (Auto) Neut % (Auto) Lymph % (Auto) Edmunds % (Auto) Eos % (Auto) Baso % (Auto) Lymph # (Auto) Edmunds # (Auto) Eos # (Auto) Baso # (Auto) Abs Immat Gran (auto) Absolute Neuts (auto) Absolute Nucleated RBC Nucleated RBC % (auto) PT INR Anion Gap 16 Estim Creat Clear Calc 59.7 Estimated GFR > 60 Random Glucose 107 Osmolality Calcium 8.8 D Magnesium 2.3 Total Bilirubin 0.8 Direct Bilirubin 0.2 AST 23 ALT 13 Alkaline Phosphatase 53 Troponin I High Sens 19.3 H B-Natriuretic Peptide 111 H Total Protein 6.2 L Albumin 4.0 Urine Color Urine Appearance Urine pH Ur Specific [place] Urine Protein Urine Glucose (UA) Urine Ketones Urine Blood Urine Nitrite Ur Leukocyte Esterase Influenza Type A (PCR) Influenza Type B (PCR) RSV RNA Qual (PCR) SARS-CoV-2 RNA (RT-PCR) 09/26/22 09/26/22 10:47 12:15 MCV MCH MCHC RDW Plt Count MPV Immature Gran % (Auto) Neut % (Auto) Lymph % (Auto) Edmunds % (Auto) Eos % (Auto) Baso % (Auto) Lymph # (Auto) Edmunds # (Auto) Eos # (Auto) Baso # (Auto) Abs Immat Gran (auto) Absolute Neuts (auto) Absolute Nucleated RBC Nucleated RBC % (auto) PT INR Anion Gap Estim Creat Clear Calc Estimated GFR Random Glucose Osmolality 259 L Calcium Magnesium Total Bilirubin Direct Bilirubin AST ALT Alkaline Phosphatase Troponin I High Sens B-Natriuretic Peptide Total Protein Albumin Urine Color Yellow Urine Appearance Clear Urine pH 7.0 Ur Specific [place] 1.020 Urine Protein Trace Urine Glucose (UA) Negative Urine Ketones 15 Urine Blood Negative Urine Nitrite Negative Ur Leukocyte Esterase Large (3+) H Influenza Type A (PCR) Influenza Type B (PCR) RSV RNA Qual (PCR) SARS-CoV-2 RNA (RT-PCR) Imaging Radiologist's Impressions: Impressions Chest X-Ray 09/26/22 10:10 IMPRESSION: No acute cardiopulmonary process seen. Assessment and Plan (1) Syncope: Status: Acute (2) Acute hyponatremia: Status: Acute (3) Paroxysmal atrial fibrillation: Status: Acute Plan An 82 years old lady with PMH of Afib on eliquis, TAVR, HTN who presents to the hospital complaining of 1 week of coughing and chest congestion complicated by fall and near syncope this morning. Acute on chronic hyponatremia baseline around 130, today down to 126 likely 2/2 dehydration and diuretics give IVF encourage PO intake follow BMP pending urine studies URI pending viral panel Duonebs ATC PRN Albuterol cough meds Syncope seems orthostatic vs vasovagal given decrease PO intake and coughing monitor BP during hospital stay Paroxysmal Afib rate controlled on case monitor per cardiology continue MEtoprolol and Apixaban HTN hold Chlorathalidone DVT PPx Eliquis Patient will likely need 2 overnight hospital stay for hyponatremia management. Time Spent With Patient Time: Total time managing care of this patient today ____ minutes. Quality Stroke Does the patient have a stroke diagnosis?: No VTE Prior VTE?: No VTE Risk Level:: Medical - moderate - high VTE Device Contraindication: Treatment Not Indicated VTE Drug Contraindication: N/A - Med Ordered
[2022-09-26 12:37] LABS: Osmolality Urine 658 mosm/kg (373-1093)
[2022-09-26] MEDS: 0.9 % Sodium Chloride 1,000 ML 999 ML IV (12:55)
[2022-09-26] MEDS: Apixaban 5 MG TABLET PO ×2 (12:59→21:43)
--- NOTE | 2022-09-26 13:11 | PHA.MEDREC ---
Pharmacy Consult ? Medication Reconciliation Pharmacy has completed the medication reconciliation. Confirmed meds with patient. Patient states they no longer take Flovent because the medication became too expensive for them.
[2022-09-26 14:26] LABS: Human metapneumovirus PCR Detected (Not Detect.)
[2022-09-26 14:27] LABS: Adenovirus PCR Not Detected (Not Detect.); Bordetella parapertussis PCR Not Detected (Not Detect.); Bordetella pertussis PCR Not Detected (Not Detect.); Chlamydia pneumoniae PCR Not Detected (Not Detect.); Coronavirus 229E PCR Not Detected (Not Detect.); Coronavirus HKU1 PCR Not Detected (Not Detect.); Coronavirus NL63 PCR Not Detected (Not Detect.); Coronavirus OC43 PCR Not Detected (Not Detect.); Influenza A PCR Not Detected (Not Detect.); Influenza B PCR Not Detected (Not Detect.); Mycoplasma pneumoniae PCR Not Detected (Not Detect.); Parainfluenza 1 PCR Not Detected (Not Detect.); Parainfluenza 2 PCR Not Detected (Not Detect.); Parainfluenza 3 PCR Not Detected (Not Detect.); Parainfluenza 4 PCR Not Detected (Not Detect.); RSV PCR Not Detected (Not Detect.); Rhino/Enterovirus PCR Not Detected (Not Detect.); SARS-CoV-2 PCR Not Detected (Not Detect.)
[2022-09-26] MEDS: guaiFENesin LA 600 MG TAB.ER.12H PO ×2 (14:36→21:44)
[2022-09-26] MEDS: Benzonatate 100 MG CAPSULE PO ×2 (14:36→21:44)
--- NOTE | 2022-09-26 14:39 | PC.NURSE ---
Pt medicated per provider order. Pt one assist to bathroom. Pt pending bed assignment.
[2022-09-26] MEDS: 0.9 % Sodium Chloride Flush 3 ML SYRINGE IVFLUSH ×2 (15:29→21:44)
--- NOTE | 2022-09-26 15:31 | PC.NURSE ---
patient a&ox3, vss, tree inspector nsr with pvcs 90, pt has an an external medicomp drake monitor placed by dr. lezama pt will be having the monitor removed on wednesday. pt denies pain/discomfort, call ibanez within reach, will continue to monitor.
--- OUTSIDE RECORDS SUMMARY | 2022-09-26 15:32 | XMS_ITS | Continuity of Care Document ---
Author Name Unknown Organization [facility] Address [address] [address]- Care Team Providers Care Cheese Sprayer Name Role Phone Checo Lin DO Primary Care Physician Encounter [facility] Date(s): 09/26/20 - 10/26/20 [facility] [address] [address]- Attending Physician: Nan Garvey Admitting Physician: Nan Garvey Referring Physician: Nan Garvey
--- OUTSIDE RECORDS SUMMARY | 2022-09-26 15:32 | XMS_ITS | Continuity of Care Document ---
Author Name Unknown Organization [facility] ter Address [address] [place] [id number]- Care Team Providers Care Monorail Car Operator Name Role Phone Checo Lin DO Komal Primary Care Physician [place] [facility] [place] [id number] Discharge Disposition: A-D/C Home Attending Physician: Tony Rhodes MD Admitting Physician: Tony Rhodes MD Referring Physician: Tony Rhodes MD Medications Eliquis 5 mg oral tablet 1 tablet = 5 mg, By Mouth, 2 times a day, # 60 tablet, 0 Refills, Maintenance, 11/11/20 8:52:00 EDT, Tablet, Partial fill upon patient request if the prescription is for a schedule II opioid drug. Start Date: 11/11/20 Status: Ordered metoprolol succinate 50 mg oral capsule, extended release 1 capsule = 50 mg, By Mouth, Daily, # 90 capsule, 0 Refills, Maintenance, 11/11/20 8:52:00 EDT, ER Capsule, Partial fill upon patient request if the prescription is for a schedule II opioid drug. Start Date: 11/11/20 Status: Ordered Vital Signs Most recent to oldest [Reference Range]: 1 2 Height 163 cm (11/11/20 8:58 AM) 163 cm (11/11/20 8:56 AM) Weight 71.9 kg (11/11/20 8:58 AM) 71.9 kg (11/11/20 8:56 AM) Oxygen Saturation [94-100 %] 100 % (11/11/20 8:58 AM) Pulse Rate [55-90 bpm] 62 bpm (11/11/20 8:58 AM) Body Mass Index [18.5-24.99] 27.06 *H* (11/11/20 8:58 AM) Blood Pressure [90-138/55-84 mm Hg] 148/ 64mm Hg *H* (11/11/20 8:58 AM) Respiratory Rate [16-30 br/min] 18 br/mi n (11/11/20 9:40 AM) 10 br/min *L* (11/11/20 8:58 AM) Temperature [96.8-100.4 DegF] 97.6 DegF (11/11/20 8:58 AM) Mode of Delivery (Oxygen) Room air (11/11/20 8:58 AM) Blood pressure sites Arm, right (11/11/20 8:58 AM) Temperature Route Temporal (11/11/20 8:58 AM) Dry Weight 71.9 kg (11/11/20 8:58 AM) 71.9 kg (11/11/20 8:56 AM)
--- OUTSIDE RECORDS SUMMARY | 2022-09-26 15:32 | XMS_ITS | Continuity of Care Document ---
Author Name Unknown Organization [facility] ter Address [address] [place] [id number]- Care Team Providers Care Human Resources Trainer Name Role Phone Checo Lin DO Komal Primary Care Physician [place] [facility] [place](s): 12/09/20 - 12/10/[address] [address]- Discharge Disposition: A-D/C Home Attending Physician: Darrick David MD Admitting Physician: Isaac Chaudhry MD Referring Physician: Isaac Chaudhry MD Allergies, Adverse Reactions, Alerts No Known Medication Allergies Medications aspirin 81 mg oral tablet, chewable 81 mg, 1, tablet, By Mouth, Daily, # 30 tablet, Refills 0, Maintenance, 12/09/20 5:59:00 EDT, Partial fill upon patient request if the prescription is for a schedule II opioid drug. Start Date: 12/09/20 Status: Ordered chlorthalidone 25 mg oral tablet 25 mg, 1, tablet, By Mouth, Daily, # 30 tablet, Refills 0, Maintenance, 12/09/20 6:00:00 EDT, Partial fill upon patient request if the prescription is for a schedule II opioid drug. Start Date: 12/09/20 Status: Ordered Eliquis 5 mg oral tablet 1 tablet [...] opioid drug. Start Date: 11/11/20 Status: Ordered Problem List Condition Effective Dates Status Health Status Inform ant Aortic stenosis(Confirmed) Active Results Radiology Reports * Exam Date Time Procedure Performing Provider Status 12/10/20 6:19 AM Chest Portable Ernieprieto Melissa; Auth (Ve rified) Notes: (Chest Portable) Reason For Exam: S/P TAVR;Postop RESULT: Chest Portable Chest Portable Reason: Postop; S P TAVR; Clinical Question(s): Other:; Cardiac Tamponade COMPARISON: 12/09/2020 FINDINGS: LINES AND TUBES: None. LUNGS AND PLEURA: Clear lungs. Normal pulmonary vascularity. No pleural effusion. No pneumothorax. HEART, MEDIASTINUM AND ROMAN: Heart is normal in size. Status post TAVR. Normal upper mediastinal and hilar contour. BONES AND SOFT TISSUES: No acute abnormality. IMPRESSION: No acute abnormality. WSN: [id number] Ordering Physician: Dann Huber Dictated By: Nimisha Chopra MD Dictated Date/Time: 12/10/20 9:24 am Reviewed By: Nimisha Chopra MD Signed By: Nimisha Chopra MD Signed Date/Time: 12/10/20 9:24 am Transcribed By: DORA Transcribed Date/Time: 12/10/20 9:20 am * Exam Date Time Procedure Performing Provider Status 12/09/20 10:44 AM Chest Portable Sia Zhang; Auth (V erified) Notes: (Chest Portable) Reason For Exam: S/P TAVR;Postop RESULT: Chest Portable Chest Portable REASON: Postop; S P TAVR; Clinical Question(s): Cardiac Tamponade COMPARISON: Correlation CT angiogram chest 10/21/2020 FINDINGS: LINES AND TUBES: None. LUNGS AND PLEURA: Clear lungs. Normal pulmonary vascularity. No pleural effusion. No pneumothorax. HEART, MEDIASTINUM AND ROMAN: Heart is normal in size. There is a right paraspinal density which may represent tortuous brachiocephalic vessels.. Status post TAVR. BONES AND SOFT TISSUES: No acute abnormality. IMPRESSION: No acute abnormality. Right paraspinal density probably representing tortuous brachiocephalic vessels. I have personally reviewed the images and I agree with this report. WSN: [id number] Ordering Physician: Dann Huber Dictated By: Romaine Morris DO Dictated Date/Time: 12/09/20 11:08 a Reviewed By: Kaushik Moore MD, V Signed By: Kaushik Moore MD, V Signed Date/Time: 12/09/20 11:13 am Transcribed By: DORA Transcribed Date/Time: 12/09/20 10:56 am Vital Signs Most recent to oldest [Reference Range]: 1 2 3 Height 163 cm (12/10/20 1:07 PM) 163 cm (12/10/20 7:46 AM) 163 cm (12/09/20 7:48 PM) Weight 71 kg (12/10/20 7:00 AM) 71.0 kg (12/10/20 7:00 AM) 70.6 kg (12/09/20 7:05 AM) Oxygen Saturation [94-100 %] 99 % (12/10/20 1:07 PM) 98 % (12/10/20 7:46 AM) 97 % (12/10/20 2:49 AM) Pulse Rate [55-90 bpm] 78 bpm (12/10/20 1:07 PM) 73 bpm (12/10/20 7:46 AM) 78 bpm (12/10/20 2:49 AM) Body Mass Index [18.5-24.99] 26.57 *H* (12/09/20 6:43 AM) Blood Pressure [90-138/55-84 mm Hg] 133/55mm Hg (12/10/20 1:07 PM) 138/70mm Hg (12/10/20 7:46 AM) 126/52mm Hg (12/10/20 2:49 AM) Respiratory Rate [16-30 br/min] 16 br/min (12/10/20 1:07 PM) 16 br/min (12/10/20 7:46 AM) 18 br/min (12/10/20 2:49 AM) Temperature [96.8-100.4 DegF] 98.5 DegF (12/10/20 1:07 PM) 98.5 DegF (12/10/20 7:46 AM) 98.9 DegF (12/10/20 2:49 AM) Liters per Minute 0 L/min (12/09/20 4:33 PM) 0 L/min (12/09/20 12:09 PM) Mode of Delivery (Oxygen) Room air (12/10/20 1:07 PM) Room air (12/10/20 7:46 AM) Room air (12/10/20 2:49 AM) Blood pressure sites Arm, left (12/10/20 1:07 PM) Arm, left (12/10/20 7:46 AM) Arm, left (12/10/20 2:49 AM) Temperature Route Oral (12/10/20 1:07 PM) Oral (12/10/20 7:46 AM) Oral (12/10/20 2:49 AM) Dry Weight 70.6 kg (12/09/20 7:05 AM) 70.6 kg (12/09/20 6:43 AM)
--- NOTE | 2022-09-26 17:02 | PC.NURSE ---
attempted to call floor to give report- no answer, will try again shortly
--- NOTE | 2022-09-26 17:25 | PC.NURSE ---
report given, transport (magdy) notified of transport
[2022-09-26] MEDS: Metoprolol Succinate ER 50 MG TAB.ER.24H PO (18:24)
[2022-09-27] VITALS (10 sets, daily range): BP systolic 121–177; BP diastolic 68–95; PULSE 62–85; RESP 16–20; TEMP 35.4–37.4; O2SAT 94–98
--- NOTE | 2022-09-27 | ECG_ITS ---
Test Reason : abnormal monitor Blood Pressure : / mmHG Vent. Rate : 078 BPM Atrial Rate : 072 BPM P-R Int : 156 ms QRS Dur : 138 ms QT Int : 394 ms P-R-T Axes : 080 -57 091 degrees QTc Int : 449 ms Sinus rhythm with Premature supraventricular complexes and with frequent Premature ventricular complexes Left axis deviation Left bundle branch block Abnormal ECG When compared with ECG of 26-SEP-2022 09:26, No significant change was found Referred By: Saturnino Avila Electronically Signed By:
[2022-09-27 01:16] LABS: Anion Gap 12 (12-20); Blood Urea Nitrogen 9 mg/dL (9-16); Calcium 8.5 mg/dL (8.4-10.2); Carbon Dioxide 28 mmol/L (22-29); Chloride 90 mmol/L (96-108); Creatinine Clr Calc Pharmacy 63.8; Estimated Glomerular Filt Rate > 60; Glucose Random 112 mg/dL (60-115); Magnesium 2.1 mg/dL (1.6-2.6); Potassium 3.1 mmol/L (3.3-5.1); Sodium 127 mmol/L (135-145)
[2022-09-27 01:30] LABS: Troponin-I High Sensitivity 76.2 ng/L (<3.5-17.0)
[2022-09-27] MEDS: Magnesium Sulfate/H2O 2 GM/50 ML PIGGYBACK IV (02:00)
[2022-09-27] MEDS: Potassium Chloride Packet 20 MEQ PACKET 40 MEQ PO ×2 (02:00→05:57)
[2022-09-27 03:55] LABS: Troponin-I High Sensitivity 68.3 ng/L (<3.5-17.0)
--- NOTE | 2022-09-27 06:50 | P.EN_ITS ---
Event Note Date of Service: 09/27/22 Event Note: Patient developed abnormal rhythm on telemetry. Obtained EKG was showed new left bundle-branch block. Patient is comfortable sleeping with no chest pain. Labs obtained showed low potassium, magnesium of 2.1, and troponin of 78 which is elevated from her initial troponin on admission. Patient remains chest pain- free. Repeat troponin shows decrease in number to 68. Patient given potassium, magnesium, cardiology consulted for new LBBB Time Spent With Patient Time: Total time managing care of this patient today ____ minutes.
[2022-09-27] MEDS: Benzonatate 100 MG CAPSULE PO ×3 (08:21→21:00)
[2022-09-27] MEDS: Apixaban 5 MG TABLET PO ×2 (08:22→21:00)
[2022-09-27] MEDS: guaiFENesin LA 600 MG TAB.ER.12H PO ×2 (08:22→21:00)
[2022-09-27 08:32] LABS: Anion Gap 15 (12-20); Blood Urea Nitrogen 8 mg/dL (9-16); Calcium 8.7 mg/dL (8.4-10.2); Carbon Dioxide 27 mmol/L (22-29); Chloride 90 mmol/L (96-108); Creatinine Clr Calc Pharmacy 59.2; Estimated Glomerular Filt Rate > 60; Glucose Random 102 mg/dL (60-115); Potassium 4.2 mmol/L (3.3-5.1); Sodium 128 mmol/L (135-145)
--- NOTE | 2022-09-27 09:06 | MHC.CM.PN ---
CM met with Patient at bedside and addressed IMM with her, providing her with the original and placing a copy on the chart. Patient mostly stays in a house in [facility] with her Partner and she uses a walker to assist with mobility. Home/self care is the goal and CM has initiated and will follow for dc planning. Patient has received Pfizer/Covid vax x3 and her PCP is Dr. Checo Lin.
--- NOTE | 2022-09-27 11:10 | HO.PM.IMPN ---
Subjective Subjective Date of Service: 09/27/22 Interval History: Seen and evaluated this morning feels tired with no energy tested positive for Metapneumovirus Na of 128 no other overnight events Review of Systems No fever, chills but reports generalized weakness No chest pain, palpitation No shortness of breath but has coughing No abdominal pain, nausea or vomiting No urinary symptoms No any rash or wounds Physical Exam Vital Signs: Vital Signs: Last Vital Signs Temp 97.2 F 09/27/22 08:00 Pulse 78 09/27/22 08:00 Resp 18 09/27/22 08:00 BP 136/75 09/27/22 08:00 Pulse Ox 96 09/27/22 08:00 O2 Del Method Room Air 09/27/22 08:00 BMI result Body Mass Index 25.4 Const: Other: Constitutional : Awake, interactive, not in distress Neck : Normal inspection, Supple Cardiovascular : RRR, no JVP, no lower extremity edema Respiratory : fair bilateral air entry, no crackles, scattered wheezes Gastrointestinal: soft, lax, Normal bowel sounds, Non tender Skin : Warm, Dry Neurological : Alert & oriented x3, No focal deficit Objective Data Active Medications Acetaminophen (Acetaminophen 325 Mg Tablet) 650 mg PO Q6H PRN PRN Reason: Pain, Mild (Pain Scale 1-3) Albuterol Sulfate (Albuterol Sulfate (0.083%) 2.5 Mg/3 Ml Vial.Neb) 2.5 mg INHALE Q4H PRN PRN Reason: Shortness of Breath/Wheezing Apixaban (Apixaban 5 Mg Tablet) 5 mg PO BID [facility] Last Admin: 09/27/22 08:22 Dose: 5 mg Documented By: EDEN Benzonatate (Benzonatate 100 Mg Capsule) 100 mg PO TID [facility] Last Admin: 09/27/22 08:21 Dose: 100 mg Documented By: EDEN Albuterol Sulfate 2.5 mg/ (Ipratropium [place] 0.5 mg) 0 mg INHALE RQ6H WHILE AWAKE [facility] Last Admin: 09/27/22 07:56 Dose: Not Given Documented By: KEV Non-Admin Reason: Patient Refused Guaifenesin (Guaifenesin La 600 Mg Tab.Er.12h) 600 mg PO BID [facility] Last Admin: 09/27/22 08:22 Dose: 600 mg Documented By: EDEN Metoprolol Succinate (Metoprolol Succinate Er 50 Mg Tab.Er.24h) 50 mg PO BEDTIME [facility]; Protocol Last Admin: 09/26/22 18:24 Dose: 50 mg Documented By: KIM Comments: verbal order to administer early d/t HR and BP Ondansetron HCl (Ondansetron Hcl 4 Mg/2 Ml Vial) 4 mg IVPUSH Q8H PRN PRN Reason: Nausea and Vomiting Pharmacy Consult (Consult Rx Perform Med Rec) 1 each MISCELLANE ONCE PRN PRN Reason: Consult order Sodium Chloride (0.9 % Sodium Chloride Flush 3 Ml Syringe) 3 ml IVFLUSH QSHIFT [facility] Last Admin: 09/26/22 21:44 Dose: 3 ml Documented By: NEPTALI Labs 09/26/22 09:57 09/27/22 06:48 Labs: Laboratory Results - last 24 hr 09/26/22 09/26/22 09/26/22 05:02 09:57 10:42 Anion Gap Estim Creat Clear Calc Estimated GFR Random Glucose Osmolality Calcium Magnesium Troponin I High Sens 19.3 H B-Natriuretic Peptide 111 H Urine Color Urine Appearance Urine pH Ur Specific [place] Urine Protein Urine Glucose (UA) Urine Ketones Urine Blood Urine Nitrite Ur Leukocyte Esterase Urine RBC Urine WBC Ur Squamous Epith Cells Urine Bacteria Hyaline Casts Urine Osmolality 658 Ur Random Sodium Respiratory Panel [place] Adenovirus (Rapid PCR) B.pert (TEM-PCR) B.parapertussis DNA PCR C. pneumoniae DNA (PCR) Coronavirus OC43 (PCR) Coronavirus HKU1 (PCR) Coronavirus 229E (PCR) Coronavirus NL63 (PCR) Human Metapneumovir PCR Influenza A (RT-PCR) Influenza B (RT-PCR) M. pneumoniae (PCR) Parainfluenza 1 (PCR) Parainfluenza 2 (PCR) Parainfluenza 3 (PCR) Parainfluenza 4 (PCR) RSV (PCR) Entero/Rhino (PCR) SARS-CoV-2 RNA (RT-PCR) 09/26/22 09/26/22 09/26/22 10:47 12:15 12:15 Anion Gap Estim Creat Clear Calc Estimated GFR Random Glucose Osmolality 259 L Calcium Magnesium Troponin I High Sens B-Natriuretic Peptide Urine Color Yellow Urine Appearance Clear Urine pH 7.0 Ur Specific [place] 1.020 Urine Protein Trace Urine Glucose (UA) Negative Urine Ketones 15 Urine Blood Negative Urine Nitrite Negative Ur Leukocyte Esterase Large (3+) H Urine RBC 3-5 H Urine WBC 6-10 H Ur Squamous Epith Cells 6-10 Urine Bacteria None Seen Hyaline Casts 0-2 Urine Osmolality Ur Random Sodium Respiratory Panel [place] See Note Adenovirus (Rapid PCR) Not Detected B.pert (TEM-PCR) Not Detected B.parapertussis DNA PCR Not Detected C. pneumoniae DNA (PCR) Not Detected Coronavirus OC43 (PCR) Not Detected Coronavirus HKU1 (PCR) Not Detected Coronavirus 229E (PCR) Not Detected Coronavirus NL63 (PCR) Not Detected Human Metapneumovir PCR Detected A Influenza A (RT-PCR) Not Detected Influenza B (RT-PCR) Not Detected M. pneumoniae (PCR) Not Detected Parainfluenza 1 (PCR) Not Detected Parainfluenza 2 (PCR) Not Detected Parainfluenza 3 (PCR) Not Detected Parainfluenza 4 (PCR) Not Detected RSV (PCR) Not Detected Entero/Rhino (PCR) Not Detected SARS-CoV-2 RNA (RT-PCR) Not Detected 09/26/22 09/27/22 09/27/22 12:15 00:55 00:55 Anion Gap 12 Estim Creat Clear Calc 63.8 Estimated GFR > 60 Random Glucose 112 Osmolality Calcium 8.5 Magnesium 2.1 Troponin I High Sens 76.2 H* D B-Natriuretic Peptide Urine Color Urine Appearance Urine pH Ur Specific [place] Urine Protein Urine Glucose (UA) Urine Ketones Urine Blood Urine Nitrite Ur Leukocyte Esterase Urine RBC Urine WBC Ur Squamous Epith Cells Urine Bacteria Hyaline Casts Urine Osmolality Ur Random Sodium 51.0 Respiratory Panel [place] Adenovirus (Rapid PCR) B.pert (TEM-PCR) B.parapertussis DNA PCR C. pneumoniae DNA (PCR) Coronavirus OC43 (PCR) Coronavirus HKU1 (PCR) Coronavirus 229E (PCR) Coronavirus NL63 (PCR) Human Metapneumovir PCR Influenza A (RT-PCR) Influenza B (RT-PCR) M. pneumoniae (PCR) Parainfluenza 1 (PCR) Parainfluenza 2 (PCR) Parainfluenza 3 (PCR) Parainfluenza 4 (PCR) RSV (PCR) Entero/Rhino (PCR) SARS-CoV-2 RNA (RT-PCR) 09/27/22 09/27/22 03:14 06:48 Anion Gap 15 Estim Creat Clear Calc 59.2 Estimated GFR > 60 Random Glucose 102 Osmolality Calcium 8.7 Magnesium Troponin I High Sens 68.3 H* B-Natriuretic Peptide Urine Color Urine Appearance Urine pH Ur Specific [place] Urine Protein Urine Glucose (UA) Urine Ketones Urine Blood Urine Nitrite Ur Leukocyte Esterase Urine RBC Urine WBC Ur Squamous Epith Cells Urine Bacteria Hyaline Casts Urine Osmolality Ur Random Sodium Respiratory Panel [place] Adenovirus (Rapid PCR) B.pert (TEM-PCR) B.parapertussis DNA PCR C. pneumoniae DNA (PCR) Coronavirus OC43 (PCR) Coronavirus HKU1 (PCR) Coronavirus 229E (PCR) Coronavirus NL63 (PCR) Human Metapneumovir PCR Influenza A (RT-PCR) Influenza B (RT-PCR) M. pneumoniae (PCR) Parainfluenza 1 (PCR) Parainfluenza 2 (PCR) Parainfluenza 3 (PCR) Parainfluenza 4 (PCR) RSV (PCR) Entero/Rhino (PCR) SARS-CoV-2 RNA (RT-PCR) Assessment and Plan (1) Acute hyponatremia: Status: Acute (2) Syncope: Status: Acute (3) Left bundle branch block: Status: Acute Plan An 82 years old lady with PMH of Afib on eliquis, TAVR, HTN who presents to the hospital complaining of 1 week of coughing and chest congestion complicated by fall and near syncope this morning. 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 Time Spent With Patient Time: Total time managing care of this patient today ____ minutes. Quality Stroke Does the patient have a stroke diagnosis?: No VTE Prior VTE?: No VTE Risk Level:: Medical - moderate - high VTE Device Contraindication: Treatment Not Indicated VTE Drug Contraindication: N/A - Med Ordered
[2022-09-27] MEDS: 0.9 % Sodium Chloride Flush 3 ML SYRINGE IVFLUSH ×2 (11:14→21:01)
--- NOTE | 2022-09-27 12:08 | PM.CNCAR ---
History of Present Illness History of Present Illness Date of Service: 09/27/22 Requesting physician: Quintin Lemus Consult reason: other (Near-syncope) Chief complaint: Generalized weakness Narrative: I was consulted to see Michelle in cardiology consultation today for presentation with near syncope. She is a pleasant 82-year-old woman with prior history of transcatheter aortic valve placement 2020, paroxysmal atrial fibrillation, chronic left bundle-branch block. Patient recently with her significant other as been suffering from respiratory symptoms with cough and wheezing. She said that she has not been eating and drinking well. She went to the bathroom and she developed cold sweats and felt lightheaded and low-dose of to the ground. She did not actually lose consciousness. Then she stood up again and felt lightheaded again. No losing consciousness. She came to the hospital. She was noted to have left bundle-branch block which is chronic with some PACs and PVCs. She also was noted to hyponatremia. No symptoms of heart failure, chest pain, palpitations. She has not had any significant pauses or av conduction abnormality on overnight monitoring. Review of Systems Constitutional: Constitutional: Reports fatigue, Reports malaise, Reports poor appetite and Reports weakness Cardiovascular: Cardiovascular: Denies chest pain, Denies syncope, Denies leg edema, Reports lightheadedness, Denies palpitations and Denies dyspnea Respiratory: Respiratory: Reports cough, Reports excessive phlegm production, Denies dyspnea and Reports wheezing Genitourinary: Genitourinary: Reports no additional female genitourinary complaints Musculoskeletal: Musculoskeletal: Reports no additional musculoskeletal complaints Neurologic: Reports system reviewed and no additional complaints, except as documented, Denies syncope and Reports weakness Endocrine: Endocrine: Reports fatigue and Denies palpitations Allergic/Immunologic: Allergic/Immunologic: Reports wheezing [facility] Past Medical History Medical History HTN (hypertension) Paroxysmal atrial fibrillation Family History Family History Mother No problems noted. Father Bladder cancer Daughter Autoimmune disease Surgical History Surgical History History of appendectomy History of hysterectomy S/P TAVR (transcatheter aortic valve replacement) Social History Social History Household Members: Spouse Housing: House Do you presently have visiting nurse or other home services: No Alcohol intake: current Alcohol intake frequency: 0-2 drinks per day Alcohol type: wine and hard liquor Patient Tobacco Use Status: Never used Tobacco Years Smoked: 10 +/- service: No Current occupational status: retired Meds Allergies Allergy/AdvReac Type Severity Reaction Status Date / Time No Known Drug Allergies Allergy none Verified 09/08/22 08:59 Active Medications: Current Medications Acetaminophen (Acetaminophen 325 Mg Tablet) 650 mg PO Q6H PRN PRN Reason: Pain, Mild (Pain Scale 1-3) Albuterol Sulfate (Albuterol Sulfate (0.083%) 2.5 Mg/3 Ml Vial.Neb) 2.5 mg INHALE Q4H PRN PRN Reason: Shortness of Breath/Wheezing Apixaban (Apixaban 5 Mg Tablet) 5 mg PO BID [facility] Last Admin: 09/27/22 08:22 Dose: 5 mg Benzonatate (Benzonatate 100 Mg Capsule) 100 mg PO TID [facility] Last Admin: 09/27/22 08:21 Dose: 100 mg Albuterol Sulfate 2.5 mg/ (Ipratropium [place] 0.5 mg) 0 mg INHALE RQ6H WHILE AWAKE [facility] Last Admin: 09/27/22 07:56 Dose: Not Given Guaifenesin (Guaifenesin [place] 600 Mg Tab.Er.12h) 600 mg PO BID [facility] Last Admin: 09/27/22 08:22 Dose: 600 mg Methylprednisolone Sodium Succinate (Methylprednisolone Sod Succ 40 Mg/Ml Vial) 40 mg IVPUSH Q24H [facility] Metoprolol Succinate (Metoprolol Succinate Er 50 Mg Tab.Er.24h) 50 mg PO BEDTIME [facility]; Protocol Last Admin: 09/26/22 18:24 Dose: 50 mg Ondansetron HCl (Ondansetron Hcl 4 Mg/2 Ml Vial) 4 mg IVPUSH Q8H PRN PRN Reason: Nausea and Vomiting Pharmacy Consult (Consult Rx Perform Med Rec) 1 each MISCELLANE ONCE PRN PRN Reason: Consult order Sodium Chloride (0.9 % Sodium Chloride Flush 3 Ml Syringe) 3 ml IVFLUSH QSHIFT [facility] Last Admin: 09/27/22 11:14 Dose: 3 ml Home Medications Medication Instructions Recorded Confirmed Last Taken Type apixaban 5 mg tablet (Eliquis) 5 mg PO BID 09/08/22 09/26/22 09/25/22 History chlorthalidone 25 mg tablet 25 mg PO DAILY 09/08/22 09/26/22 09/25/22 History fluticasone propionate 50 1 spray intranasal BID 09/08/22 09/26/22 09/25/22 History mcg/actuation nasal spray,suspension metoprolol succinate 50 mg 50 mg PO BEDTIME 09/08/22 09/26/22 09/25/22 History tablet,extended release 24 hr Physical Exam Vital Signs: Vital Signs: Last Vital Signs Temp 97.9 F 09/27/22 11:42 Pulse 72 09/27/22 11:59 Resp 20 09/27/22 11:42 BP 125/83 09/27/22 11:59 Pulse Ox 96 09/27/22 11:42 O2 Del Method Room Air 09/27/22 11:42 BMI result Body Mass Index 25.4 Const: General: cooperative, comfortable, no acute distress, alert and awake Nutritional Appearance: average body habitus and well nourished Orientation/consciousness: patient oriented x3 Limitations: no limitations HEENT: Head: Yes normocephalic and Yes atraumatic Neck: Neck: Yes trachea midline, Yes supple and Yes no JVD Resp: Effort & Inspection: normal respiratory effort Auscultation: wheezes Cardio: Jugular venous distension: no JVD Palpation: normal PMI Rate: regular rate Rhythm: regular rhythm Heart sounds: S1 normal heart sound present, S2 normal heart sound present, no click, no gallops, no murmurs and no rubs GI: Auscultation: normal bowel sounds Skin: General skin exam: no rashes or lesions noted Neuro: General: patient oriented x3 and no focal motor deficits Extrem: General: Yes no clubbing, cyanosis or edema Objective Labs and Meds 09/26/22 09:57 09/27/22 06:48 Lab results: Laboratory Results - last 24 hr 09/26/22 09/26/22 09/26/22 05:02 09:57 12:15 Sodium Potassium Chloride Carbon Dioxide Anion Gap BUN Creatinine Estim Creat Clear Calc Estimated GFR Random Glucose Calcium Magnesium Troponin I High Sens B-Natriuretic Peptide 111 H Urine Color Urine Appearance Urine pH Ur Specific [place] Urine Protein Urine Glucose (UA) Urine Ketones Urine Blood Urine Nitrite Ur Leukocyte Esterase Urine RBC Urine WBC Ur Squamous Epith Cells Urine Bacteria Hyaline Casts Urine Osmolality 658 Ur Random Sodium Respiratory Panel [place] See Note Adenovirus (Rapid PCR) Not Detected B.pert (TEM-PCR) Not Detected B.parapertussis DNA PCR Not Detected C. pneumoniae DNA (PCR) Not Detected Coronavirus OC43 (PCR) Not Detected Coronavirus HKU1 (PCR) Not Detected Coronavirus 229E (PCR) Not Detected Coronavirus NL63 (PCR) Not Detected Human Metapneumovir PCR Detected A Influenza A (RT-PCR) Not Detected Influenza B (RT-PCR) Not Detected M. pneumoniae (PCR) Not Detected Parainfluenza 1 (PCR) Not Detected Parainfluenza 2 (PCR) Not Detected Parainfluenza 3 (PCR) Not Detected Parainfluenza 4 (PCR) Not Detected RSV (PCR) Not Detected Entero/Rhino (PCR) Not Detected SARS-CoV-2 RNA (RT-PCR) Not Detected 09/26/22 09/26/22 09/27/22 12:15 12:15 00:55 Sodium Potassium Chloride Carbon Dioxide Anion Gap BUN Creatinine Estim Creat Clear Calc Estimated GFR Random Glucose Calcium Magnesium Troponin I High Sens 76.2 H* D B-Natriuretic Peptide Urine Color Yellow Urine Appearance Clear Urine pH 7.0 Ur Specific [place] 1.020 Urine Protein Trace Urine Glucose (UA) Negative Urine Ketones 15 Urine Blood Negative Urine Nitrite Negative Ur Leukocyte Esterase Large (3+) H Urine RBC 3-5 H Urine WBC 6-10 H Ur Squamous Epith Cells 6-10 Urine Bacteria None Seen Hyaline Casts 0-2 Urine Osmolality Ur Random Sodium 51.0 Respiratory Panel [place] Adenovirus (Rapid PCR) B.pert (TEM-PCR) B.parapertussis DNA PCR C. pneumoniae DNA (PCR) Coronavirus OC43 (PCR) Coronavirus HKU1 (PCR) Coronavirus 229E (PCR) Coronavirus NL63 (PCR) Human Metapneumovir PCR Influenza A (RT-PCR) Influenza B (RT-PCR) M. pneumoniae (PCR) Parainfluenza 1 (PCR) Parainfluenza 2 (PCR) Parainfluenza 3 (PCR) Parainfluenza 4 (PCR) RSV (PCR) Entero/Rhino (PCR) SARS-CoV-2 RNA (RT-PCR) 09/27/22 09/27/22 09/27/22 00:55 03:14 06:48 Sodium 127 L 128 L Potassium 3.1 L 4.2 D Chloride 90 L 90 L Carbon Dioxide 28 27 Anion Gap 12 15 BUN 9 8 L Creatinine 0.64 0.69 Estim Creat Clear Calc 63.8 59.2 Estimated GFR > 60 > 60 Random Glucose 112 102 Calcium 8.5 8.7 Magnesium 2.1 Troponin I High Sens 68.3 H* B-Natriuretic Peptide Urine Color Urine Appearance Urine pH Ur Specific [place] Urine Protein Urine Glucose (UA) Urine Ketones Urine Blood Urine Nitrite Ur Leukocyte Esterase Urine RBC Urine WBC Ur Squamous Epith Cells Urine Bacteria Hyaline Casts Urine Osmolality Ur Random Sodium Respiratory Panel [place] Adenovirus (Rapid PCR) B.pert (TEM-PCR) B.parapertussis DNA PCR C. pneumoniae DNA (PCR) Coronavirus OC43 (PCR) Coronavirus HKU1 (PCR) Coronavirus 229E (PCR) Coronavirus NL63 (PCR) Human Metapneumovir PCR Influenza A (RT-PCR) Influenza B (RT-PCR) M. pneumoniae (PCR) Parainfluenza 1 (PCR) Parainfluenza 2 (PCR) Parainfluenza 3 (PCR) Parainfluenza 4 (PCR) RSV (PCR) Entero/Rhino (PCR) SARS-CoV-2 RNA (RT-PCR) EKG shows normal sinus rhythm with left bundle-branch block with PACs and PVCs Assessment and Plan (1) Syncope: Status: Acute Near syncope in this elderly woman most likely appears to be related to intravascular volume depletion and coughing with reduced venous return from coughing. Symptoms are highly suggestive orthostatic hypertension. Orthostatic vitals should be performed. She is advised to increase oral fluid and salt intake. Continue monitor blood pressure at home. She was wearing Holter monitor while she had this episode. The data is not available, will review it once she returns Holter monitor. There is no obvious arrhythmia, advanced AV block or significant pauses noted on cardiac telemetry. Continue treat her bronchitis related to a viral illness. Continue other antihypertensive therapy. From cardiac perspective I think patient can be discharged home. Will sign of the case Time Spent With Patient Time: Total time managing care of this patient today ____ minutes. Procedures Date of Service Date of Service: 09/27/22
[2022-09-27] MEDS: methylPREDNISolone Sod Succ 40 MG/ML VIAL IVPUSH (12:09)
[2022-09-27] MEDS: Metoprolol Succinate ER 50 MG TAB.ER.24H PO (21:00)
[2022-09-27] MEDS: traZODone HCL 50 MG TABLET PO (23:28)
[2022-09-28] VITALS (7 sets, daily range): BP systolic 115–159; BP diastolic 57–83; PULSE 57–87; RESP 12–20; TEMP 36.1–37.7; O2SAT 94–98
[2022-09-28 03:23] LABS: Anion Gap 15 (12-20); Blood Urea Nitrogen 11 mg/dL (9-16); Calcium 8.6 mg/dL (8.4-10.2); Carbon Dioxide 24 mmol/L (22-29); Chloride 89 mmol/L (96-108); Creatinine Clr Calc Pharmacy 69.3; Estimated Glomerular Filt Rate > 60; Glucose Random 123 mg/dL (60-115); Potassium 3.8 mmol/L (3.3-5.1); Sodium 124 mmol/L (135-145)
[2022-09-28 07:37] LABS: Anion Gap 11 (12-20); Blood Urea Nitrogen 9 mg/dL (9-16); Calcium 8.9 mg/dL (8.4-10.2); Carbon Dioxide 28 mmol/L (22-29); Chloride 90 mmol/L (96-108); Estimated Glomerular Filt Rate > 60; Glucose Random 92 mg/dL (60-115); Potassium 3.8 mmol/L (3.3-5.1); Sodium 125 mmol/L (135-145)
[2022-09-28] MEDS: Benzonatate 100 MG CAPSULE PO ×3 (09:37→20:56)
[2022-09-28] MEDS: Apixaban 5 MG TABLET PO ×2 (09:37→20:56)
[2022-09-28] MEDS: guaiFENesin LA 600 MG TAB.ER.12H PO ×2 (09:37→20:56)
[2022-09-28] MEDS: Urea 15 GM POWDER PO ×2 (09:37→20:56)
[2022-09-28] MEDS: 0.9 % Sodium Chloride Flush 3 ML SYRINGE IVFLUSH ×2 (09:40→14:57)
--- NOTE | 2022-09-28 11:05 | PM.CNNEP ---
History of Present Illness Reason for Consult Consult date: 09/28/22 Reason for consult: hyponatremia Chief Complaint Chief complaint: Generalized weakness History of Present Illness Narrative: 82 years old lady with PMH of Afib on eliquis, TAVR, HTN who presents to the hospital complaining of 1 week of coughing and chest congestion complicated by fall and near syncope this morning. Reported that her partner has URI symptoms as well but this morning she went to herbathroom and developed cold sweats and felt lightheaded and too weak to stay up and had to lower her self down. once her frnd brought her the walker she stood up then seems to have syncope but denies losing conciousness. Denies any fever, chills, chest pain, palpitations, nausea, vomiting diarrhea or urinary symptoms. In ED found to have low Na level of 126 with no CXR. Review of Systems Constitutional: Denies chills and Denies headache(s) Eyes: Denies dry eyes Denies vertigo, Denies dizziness, Denies dry mouth and Denies headache(s) Cardiovascular: Denies Epigastric Pain, Denies pedal edema and Denies lightheadedness Respiratory: Denies chest congestion and Denies cough Gastrointestinal: Denies abdominal pain and Denies diarrhea Genitourinary: Denies flank pain, Denies urinary hesitancy and Denies urinary urgency Denies confusion, Denies vertigo, Denies dizziness, Denies headache(s) and Denies memory loss Psychiatric: Denies confusion and Denies memory loss PMFSH Past Medical History Medical History HTN (hypertension) Paroxysmal atrial fibrillation Family History Family History Mother No problems noted. Father Bladder cancer Daughter Autoimmune disease Surgical History Surgical History History of appendectomy History of hysterectomy S/P TAVR (transcatheter aortic valve replacement) Social History Social History Household Members: Spouse Housing: House Do you presently have visiting nurse or other home services: No Alcohol intake: current Alcohol intake frequency: 0-2 drinks per day Alcohol type: wine and hard liquor Patient Tobacco Use Status: Never used Tobacco Years Smoked: 10 +/- service: No Current occupational status: retired Meds Allergies Allergy/AdvReac Type Severity Reaction Status Date / Time No Known Drug Allergies Allergy none Verified 09/08/22 08:59 Active Medications: Current Medications Acetaminophen (Acetaminophen 325 Mg Tablet) 650 mg PO Q6H PRN PRN Reason: Pain, Mild (Pain Scale 1-3) Albuterol Sulfate (Albuterol Sulfate (0.083%) 2.5 Mg/3 Ml Vial.Neb) 2.5 mg INHALE Q4H PRN PRN Reason: Shortness of Breath/Wheezing Apixaban (Apixaban 5 Mg Tablet) 5 mg PO BID [facility] Last Admin: 09/28/22 09:37 Dose: 5 mg Benzonatate (Benzonatate 100 Mg Capsule) 100 mg PO TID [facility] Last Admin: 09/28/22 09:37 Dose: 100 mg Albuterol Sulfate 2.5 mg/ (Ipratropium [place] 0.5 mg) 0 mg INHALE RQ6H WHILE AWAKE [facility] Last Admin: 09/28/22 07:46 Dose: 1 each Guaifenesin (Guaifenesin La 600 Mg Tab.Er.12h) 600 mg PO BID [facility] Last Admin: 09/28/22 09:37 Dose: 600 mg Methylprednisolone Sodium Succinate (Methylprednisolone Sod Succ 40 Mg/Ml Vial) 40 mg IVPUSH Q24H [facility] Last Admin: 09/27/22 12:09 Dose: 40 mg Metoprolol Succinate (Metoprolol Succinate Er 50 Mg Tab.Er.24h) 50 mg PO BEDTIME [facility]; Protocol Last Admin: 09/27/22 21:00 Dose: 50 mg Ondansetron HCl (Ondansetron Hcl 4 Mg/2 Ml Vial) 4 mg IVPUSH Q8H PRN PRN Reason: Nausea and Vomiting Pharmacy Consult (Consult Rx Perform Med Rec) 1 each MISCELLANE ONCE PRN PRN Reason: Consult order Sodium Chloride (0.9 % Sodium Chloride Flush 3 Ml Syringe) 3 ml IVFLUSH QSHIFT [facility] Last Admin: 09/28/22 09:40 Dose: 3 ml Home Medications Medication Instructions Recorded Confirmed Last Taken Type apixaban 5 mg tablet (Eliquis) 5 mg PO BID 09/08/22 09/26/22 09/25/22 History chlorthalidone 25 mg tablet 25 mg PO DAILY 09/08/22 09/26/22 09/25/22 History fluticasone propionate 50 1 spray intranasal BID 09/08/22 09/26/22 09/25/22 History mcg/actuation nasal spray,suspension metoprolol succinate 50 mg 50 mg PO BEDTIME 09/08/22 09/26/22 09/25/22 History tablet,extended release 24 hr Physical Exam Vital Signs: Last Vital Signs Temp 97.9 F 09/28/22 08:00 Pulse 87 09/28/22 08:00 Resp 20 09/28/22 08:00 BP 159/82 H 09/28/22 08:00 Pulse Ox 96 09/28/22 08:00 O2 Del Method Room Air 09/28/22 08:00 BMI result Body Mass Index 25.4 Constitutional : Awake, interactive, not in distress Neck : Normal inspection, Supple Cardiovascular : RRR, no JVP, no lower extremity edema Respiratory : fair bilateral air entry,? no crackles, scattered wheezes Gastrointestinal:? soft, lax, Normal bowel sounds, Non tender Skin : Warm, Dry Neurological : Alert & oriented x3, No focal deficit Const General: No confusion Orientation/consciousness: No confusion Neuro General: No confusion Results Lab Results 09/26/22 09:57 09/28/22 07:07 Lab results: Chemistry 09/26/22 09/27/22 09/27/22 10:42 00:55 06:48 Sodium 126 L 127 L 128 L Potassium 3.3 3.1 L 4.2 D Carbon Dioxide 28 28 27 BUN 12 9 8 L Creatinine 0.68 0.64 0.69 Calcium 8.8 D 8.5 8.7 09/28/22 09/28/22 02:41 07:07 Sodium 124 L 125 L Potassium 3.8 3.8 Carbon Dioxide 24 28 BUN 11 9 Creatinine 0.59 0.61 Calcium 8.6 8.9 Hematology 09/26/22 09:57 WBC 6.6 Hgb 14.0 Plt Count 166 Urinalysis 09/26/22 12:15 Urine Color Yellow Urine Appearance Clear Urine pH 7.0 Ur Specific [place] 1.020 Urine Protein Trace Urine Glucose (UA) Negative Urine Ketones 15 Urine Blood Negative Urine Nitrite Negative Ur Leukocyte Esterase Large (3+) H Urine RBC 3-5 H Urine WBC 6-10 H Ur Squamous Epith Cells 6-10 Hyaline Casts 0-2 Urine Studies 09/26/22 05:02 Urine Osmolality 658 Assessment and Plan (1) Acute hyponatremia: Status: Acute Plan 82-year-old woman with hyponatremia. Two probably has hypotonic hyponatremia. Clinically she appears euvolemic. Recommendations Check urine for sodium, osmolality, creatinine. Check serum osmolality. Check serum TSH. Restrict oral free water intake to 1.2 L per 24 hours. Add urea powder 15 g p.o. b.i.d. to increase osmotic load. Goal is to maintain serum sodium more than 130 millimoles. There is no indication for hypertonic saline at this time. We will follow her closelyWith the team. Thank you Time Spent With Patient Time: Total time managing care of this patient today ____ minutes. Procedures Date of Service Date of Service: 09/28/22
[2022-09-28] MEDS: methylPREDNISolone Sod Succ 40 MG/ML VIAL IVPUSH (12:16)
--- NOTE | 2022-09-28 13:00 | HO.PM.IMPN ---
Subjective Subjective Date of Service: 09/28/22 Interval History: Seen and evaluated this morning feels tired with no energy, having wheezes tested positive for Metapneumovirus Na dropped to 125 no other overnight events Review of Systems No fever, chills but reports generalized weakness No chest pain, palpitation No shortness of breath but has coughing No abdominal pain, nausea or vomiting No urinary symptoms No any rash or wounds Physical Exam Vital Signs: Vital Signs: Last Vital Signs Temp 97.8 F 09/28/22 11:52 Pulse 66 09/28/22 11:52 Resp 20 09/28/22 11:52 BP 139/75 09/28/22 11:52 Pulse Ox 96 09/28/22 11:52 O2 Del Method Room Air 09/28/22 11:52 BMI result Body Mass Index 25.4 Const: Other: Constitutional : Awake, interactive, not in distress Neck : Normal inspection, Supple Cardiovascular : RRR, no JVP, no lower extremity edema Respiratory : fair bilateral air entry, no crackles, scattered wheezes Gastrointestinal: soft, lax, Normal bowel sounds, Non tender Skin : Warm, Dry Neurological : Alert & oriented x3, No focal deficit Objective Data Active Medications Acetaminophen (Acetaminophen 325 Mg Tablet) 650 mg PO Q6H PRN PRN Reason: Pain, Mild (Pain Scale 1-3) Albuterol Sulfate (Albuterol Sulfate (0.083%) 2.5 Mg/3 Ml Vial.Neb) 2.5 mg INHALE Q4H PRN PRN Reason: Shortness of Breath/Wheezing Apixaban (Apixaban 5 Mg Tablet) 5 mg PO BID [facility] Last Admin: 09/28/22 09:37 Dose: 5 mg Documented By: LUIS Benzonatate (Benzonatate 100 Mg Capsule) 100 mg PO TID [facility] Last Admin: 09/28/22 09:37 Dose: 100 mg Documented By: LUIS Albuterol Sulfate 2.5 mg/ (Ipratropium [place] 0.5 mg) 0 mg INHALE RQ6H WHILE AWAKE [facility] Last Admin: 09/28/22 07:46 Dose: 1 each Documented By: KEV Guaifenesin (Guaifenesin [place] 600 Mg Tab.Er.12h) 600 mg PO BID [facility] Last Admin: 09/28/22 09:37 Dose: 600 mg Documented By: LUIS Methylprednisolone Sodium Succinate (Methylprednisolone Sod Succ 40 Mg/Ml Vial) 40 mg IVPUSH Q24H [facility] Last Admin: 09/28/22 12:16 Dose: 40 mg Documented By: LUIS Metoprolol Succinate (Metoprolol Succinate Er 50 Mg Tab.Er.24h) 50 mg PO BEDTIME [facility]; Protocol Last Admin: 09/27/22 21:00 Dose: 50 mg Documented By: NEPTALI Ondansetron HCl (Ondansetron Hcl 4 Mg/2 Ml Vial) 4 mg IVPUSH Q8H PRN PRN Reason: Nausea and Vomiting Pharmacy Consult (Consult Rx Perform Med Rec) 1 each MISCELLANE ONCE PRN PRN Reason: Consult order Sodium Chloride (0.9 % Sodium Chloride Flush 3 Ml Syringe) 3 ml IVFLUSH QSHIFT [facility] Last Admin: 09/28/22 09:40 Dose: 3 ml Documented By: LUIS Labs 09/26/22 09:57 09/28/22 07:07 Labs: Laboratory Results - last 24 hr 09/28/22 09/28/22 02:41 07:07 Anion Gap 15 11 L Estim Creat Clear Calc 69.3 67.0 Estimated GFR > 60 > 60 Random Glucose 123 H 92 Calcium 8.6 8.9 Magnesium 2.0 Microbiology Microbiology Results: Microbiology 09/26/22 Unknown Urine Culture - Final Urine clean catch - Urine prado top Escherichia coli Assessment and Plan (1) Syncope: Status: Acute (2) Acute hyponatremia: Status: Acute (3) Bronchitis due to human metapneumovirus (hMPV): Status: Acute Plan An 82 years old lady with PMH of Afib on eliquis, TAVR, HTN who presents to the hospital complaining of 1 week of coughing and chest congestion complicated by fall and near syncope this morning. Acute on chronic hyponatremia baseline around 130, today down to 125 likely 2/2 dehydration and diuretics DC IVF fluid restriction Urea bid follow BMP urine studies, High osm, high sodium nephrology following Acute bronchitis 2/2 Metapneumovirus positive Duonebs ATC, steroids PRN Albuterol cough meds NSVTs no more abnormal rhythms electrolytes normal Cardio input appreciated, no NSVTs Syncope seems orthostatic vs vasovagal given decrease PO intake and coughing monitor BP during hospital stay Keep on Tele Paroxysmal Afib rate controlled on steel loader per cardiology continue MEtoprolol and Apixaban HTN hold Chlorathalidone DVT PPx Eliquis Patient will likely need overnight hospital stay for hyponatremia management. Time Spent With Patient Time: Total time managing care of this patient today ____ minutes. Quality Stroke Does the patient have a stroke diagnosis?: No VTE Prior VTE?: No VTE Risk Level:: Medical - moderate - high VTE Device Contraindication: Treatment Not Indicated VTE Drug Contraindication: N/A - Med Ordered
--- NOTE | 2022-09-28 13:32 | MHC.CM.PN ---
per rounds pt not ready for dc dc plan home no servceis
[2022-09-28 13:51] LABS: Thyroid Stimulating Hormone 0.81 uIU/mL (0.32-4.0)
[2022-09-28 14:23] LABS: Anion Gap 14 (12-20); Blood Urea Nitrogen 31 mg/dL (9-16); Calcium 9.3 mg/dL (8.4-10.2); Carbon Dioxide 31 mmol/L (22-29); Chloride 86 mmol/L (96-108); Creatinine Clr Calc Pharmacy 56.7; Estimated Glomerular Filt Rate > 60; Glucose Random 110 mg/dL (60-115); Potassium 3.7 mmol/L (3.3-5.1); Sodium 127 mmol/L (135-145)
[2022-09-28] MEDS: traZODone HCL 50 MG TABLET PO (20:56)
[2022-09-28] MEDS: Metoprolol Succinate ER 50 MG TAB.ER.24H PO (20:56)
[2022-09-29] VITALS (10 sets, daily range): BP systolic 106–159; BP diastolic 60–83; PULSE 69–99; RESP 16–18; TEMP 36.3–37; O2SAT 95–99
[2022-09-29] MEDS: 0.9 % Sodium Chloride Flush 3 ML SYRINGE IVFLUSH (00:25)
[2022-09-29 07:11] LABS: Anion Gap 13 (12-20); Blood Urea Nitrogen 27 mg/dL (9-16); Calcium 9.2 mg/dL (8.4-10.2); Carbon Dioxide 28 mmol/L (22-29); Chloride 91 mmol/L (96-108); Creatinine Clr Calc Pharmacy 60.9; Estimated Glomerular Filt Rate > 60; Glucose Random 93 mg/dL (60-115); Sodium 128 mmol/L (135-145)
[2022-09-29] MEDS: Urea 15 GM POWDER PO ×2 (08:16→20:33)
[2022-09-29] MEDS: Apixaban 5 MG TABLET PO ×2 (08:16→20:33)
[2022-09-29] MEDS: guaiFENesin LA 600 MG TAB.ER.12H PO ×2 (08:16→20:33)
[2022-09-29] MEDS: Benzonatate 100 MG CAPSULE PO ×3 (08:16→20:34)
[2022-09-29] MEDS: amLODIPine Besylate 5 MG TABLET PO (09:08)
--- NOTE | 2022-09-29 09:18 | PM.PNNEP ---
Subjective Subjective Date of Service: 09/29/22 Interval history: Seen and evaluated this morning feels tired with no energy, having wheezes tested positive for Metapneumovirus Na dropped to 125 no other overnight events Physical Exam Vital Signs: Vital Signs: Last Vital Signs Temp 98.0 F 09/29/22 07:47 Pulse 72 09/29/22 08:41 Resp 16 09/29/22 08:41 BP 140/80 H 09/29/22 07:47 Pulse Ox 98 09/29/22 07:47 O2 Del Method Room Air 09/29/22 07:47 BMI result Body Mass Index 25.4 Const: Other: Constitutional : Awake, interactive, not in distress Neck : Normal inspection, Supple Cardiovascular : RRR, no JVP, no lower extremity edema Respiratory : fair bilateral air entry, no crackles, scattered wheezes Gastrointestinal: soft, lax, Normal bowel sounds, Non tender Skin : Warm, Dry Neurological : Alert & oriented x3, No focal deficit Objective Data Labs 09/26/22 09:57 09/29/22 06:26 Labs: Laboratory Results - last 24 hr 09/28/22 09/28/22 09/29/22 02:41 13:43 06:26 Sodium 127 L 128 L Potassium 3.7 4.0 Chloride 86 L 91 L Carbon Dioxide 31 H 28 Anion Gap 14 13 BUN 31 H 27 H Creatinine 0.72 0.67 Estim Creat Clear Calc 56.7 60.9 Estimated GFR > 60 > 60 Random Glucose 110 93 Calcium 9.3 9.2 TSH 0.81 Microbiology Microbiology Results: Microbiology 09/26/22 Unknown Urine clean catch - Urine prado top Urine Culture - Final Escherichia coli Procedures Date of Service Date of Service: 09/29/22 Assessment & Plan Assessment and plan (1) Acute hyponatremia: Status: Acute Plan 82-year-old woman with hyponatremia. probably has hypotonic hyponatremia. Clinically she appears euvolemic. Recommendations Restrict oral free water intake to 1.2 L per 24 hours. urea powder 15 g p.o. b.i.d. to increase osmotic load. Goal is to maintain serum sodium more than 130 millimoles. There is no indication for hypertonic saline at this time. I would avoid diuretics especially thiazide type diuretics given the history of hyponatremia. The can use alternate agents like amlodipine to control blood pressure. Time Spent With Patient Time: Total time managing care of this patient today ____ minutes. Progress Note: Quality Stroke Does the patient have a stroke diagnosis?: No
[2022-09-29] MEDS: methylPREDNISolone Sod Succ 40 MG/ML VIAL IVPUSH (11:24)
--- NOTE | 2022-09-29 13:52 | HO.PM.IMPN ---
Subjective Subjective Date of Service: 09/29/22 Interval History: Seen and evaluated this morning feels better with more energy, still having wheezes Na improved to 128 no other overnight events Review of Systems No fever, chills but reports generalized weakness No chest pain, palpitation No shortness of breath but has coughing No abdominal pain, nausea or vomiting No urinary symptoms No any rash or wounds Physical Exam Vital Signs: Vital Signs: Last Vital Signs Temp 97.4 F 09/29/22 11:51 Pulse 82 09/29/22 11:51 Resp 17 09/29/22 11:51 BP 135/78 09/29/22 11:51 Pulse Ox 98 09/29/22 11:51 O2 Del Method Nasal Cannula 09/29/22 11:51 BMI result Body Mass Index 25.4 Const: Other: Constitutional : Awake, interactive, not in distress Neck : Normal inspection, Supple Cardiovascular : RRR, no JVP, no lower extremity edema Respiratory : fair bilateral air entry, no crackles, scattered wheezes Gastrointestinal: soft, lax, Normal bowel sounds, Non tender Skin : Warm, Dry Neurological : Alert & oriented x3, No focal deficit Objective Data Active Medications Acetaminophen (Acetaminophen 325 Mg Tablet) 650 mg PO Q6H PRN PRN Reason: Pain, Mild (Pain Scale 1-3) Albuterol Sulfate (Albuterol Sulfate (0.083%) 2.5 Mg/3 Ml Vial.Neb) 2.5 mg INHALE Q4H PRN PRN Reason: Shortness of Breath/Wheezing Amlodipine Besylate (Amlodipine Besylate 5 Mg Tablet) 5 mg PO DAILY [facility]; Protocol Last Admin: 09/29/22 09:08 Dose: 5 mg Documented By: KELSEY-ALBINA Apixaban (Apixaban 5 Mg Tablet) 5 mg PO BID [facility] Last Admin: 09/29/22 08:16 Dose: 5 mg Documented By: KELSEY-ALBINA Benzonatate (Benzonatate 100 Mg Capsule) 100 mg PO TID [facility] Last Admin: 09/29/22 08:16 Dose: 100 mg Documented By: ROAHN Albuterol Sulfate 2.5 mg/ (Ipratropium [place] 0.5 mg) 0 mg INHALE RQ6H WHILE AWAKE [facility] Last Admin: 09/29/22 08:41 Dose: 2.5 each Documented By: HO.RONCARR Guaifenesin (Guaifenesin [place] 600 Mg Tab.Er.12h) 600 mg PO BID [facility] Last Admin: 09/29/22 08:16 Dose: 600 mg Documented By: ROHAN Methylprednisolone Sodium Succinate (Methylprednisolone Sod Succ 40 Mg/Ml Vial) 40 mg IVPUSH Q24H [facility] Last Admin: 09/29/22 11:24 Dose: 40 mg Documented By: ROHAN Metoprolol Succinate (Metoprolol Succinate Er 50 Mg Tab.Er.24h) 50 mg PO BEDTIME [facility]; Protocol Last Admin: 09/28/22 20:56 Dose: 50 mg Documented By: LUIS Ondansetron HCl (Ondansetron Hcl 4 Mg/2 Ml Vial) 4 mg IVPUSH Q8H PRN PRN Reason: Nausea and Vomiting Pharmacy Consult (Consult Rx Perform Med Rec) 1 each MISCELLANE ONCE PRN PRN Reason: Consult order Sodium Chloride (0.9 % Sodium Chloride Flush 3 Ml Syringe) 3 ml IVFLUSH QSHIFT [facility] Last Admin: 09/29/22 13:19 Dose: Not Given Documented By: ROHAN Non-Admin Reason: See Note Urea (Urea 15 Gm Powder) 15 gm PO BID [facility] Last Admin: 09/29/22 08:16 Dose: 15 gm Documented By: ROHAN Labs 09/26/22 09:57 09/29/22 06:26 Labs: Laboratory Results - last 24 hr 09/28/22 09/29/22 13:43 06:26 Anion Gap 14 13 Estim Creat Clear Calc 56.7 60.9 Estimated GFR > 60 > 60 Random Glucose 110 93 Calcium 9.3 9.2 Assessment and Plan (1) Bronchitis due to human metapneumovirus (hMPV): Status: Acute (2) Syncope: Status: Acute (3) Acute hyponatremia: Status: Acute Plan An 82 years old lady with PMH of Afib on eliquis, TAVR, HTN who presents to the hospital complaining of 1 week of coughing and chest congestion complicated by fall and near syncope this morning. Acute on chronic hyponatremia baseline around 130, today 128 likely 2/2 dehydration and diuretics DC IVF fluid restriction Urea bid follow BMP urine studies, High osm, high sodium nephrology following Acute bronchitis 2/2 Metapneumovirus positive Duonebs ATC, steroids PRN Albuterol cough meds NSVTs asymptomatic electrolytes normal Cardio input appreciated, no NSVTs Syncope seems orthostatic given decrease PO intake and coughing monitor BP during hospital stay Keep on Tele Paroxysmal Afib rate controlled on desk monitor per cardiology continue MEtoprolol and Apixaban HTN hold Chlorathalidone DVT PPx Eliquis Patient will likely need overnight hospital stay for hyponatremia management. Time Spent With Patient Time: Total time managing care of this patient today ____ minutes. Quality Stroke Does the patient have a stroke diagnosis?: No VTE Prior VTE?: No VTE Risk Level:: Medical - moderate - high VTE Device Contraindication: Treatment Not Indicated VTE Drug Contraindication: N/A - Med Ordered
[2022-09-29] MEDS: Acetaminophen 325 MG TABLET 650 MG PO ×2 (15:11→21:12)
[2022-09-29] MEDS: Metoprolol Succinate ER 50 MG TAB.ER.24H PO (20:33)
[2022-09-30 03:50] VITALS: BP 153/77; PULSE 65; RESP 16; TEMP 36.7; O2SAT 95
[2022-09-30] MEDS: Acetaminophen 325 MG TABLET 650 MG PO (03:56)
[2022-09-30 06:34] LABS: Anion Gap 13 (12-20); Blood Urea Nitrogen 31 mg/dL (9-16); Calcium 9.1 mg/dL (8.4-10.2); Carbon Dioxide 27 mmol/L (22-29); Chloride 95 mmol/L (96-108); Creatinine Clr Calc Pharmacy 62.8; Estimated Glomerular Filt Rate > 60; Glucose Random 98 mg/dL (60-115); Potassium 4.3 mmol/L (3.3-5.1); Sodium 131 mmol/L (135-145)
[2022-09-30 07:35] VITALS: BP 145/68; PULSE 62; RESP 17; TEMP 36.4; O2SAT 97
[2022-09-30] MEDS: Urea 15 GM POWDER PO (07:54)
[2022-09-30] MEDS: guaiFENesin LA 600 MG TAB.ER.12H PO (07:54)
[2022-09-30] MEDS: Benzonatate 100 MG CAPSULE PO (07:55)
[2022-09-30] MEDS: Apixaban 5 MG TABLET PO (07:55)
[2022-09-30] MEDS: amLODIPine Besylate 5 MG TABLET PO (07:55)
[2022-09-30] MEDS: 0.9 % Sodium Chloride Flush 3 ML SYRINGE IVFLUSH (07:56)
[2022-09-30 08:01] VITALS: PULSE 93; RESP 17; O2SAT 96
--- NOTE | 2022-09-30 09:19 | PM.PNNEP ---
Subjective Subjective Date of Service: 10/01/22 Interval history: events noted. No new issues. Physical Exam Vital Signs: Vital Signs: Last Vital Signs Temp 97.6 F 09/30/22 07:35 Pulse 93 09/30/22 08:01 Resp 17 09/30/22 08:01 BP 145/68 H 09/30/22 07:35 Pulse Ox 97 09/30/22 07:35 O2 Del Method Room Air 09/30/22 07:35 BMI result Body Mass Index 25.4 Const: Other: Constitutional : Awake, interactive, not in distress Neck : Normal inspection, Supple Cardiovascular : RRR, no JVP, no lower extremity edema Respiratory : fair bilateral air entry, no crackles, scattered wheezes Gastrointestinal: soft, lax, Normal bowel sounds, Non tender Skin : Warm, Dry Neurological : Alert & oriented x3, No focal deficit General: No confusion Orientation/consciousness: No confusion Neuro: General: No confusion Objective Data Labs 09/26/22 09:57 09/30/22 05:53 Labs: Laboratory Results - last 24 hr 09/30/22 05:53 Sodium 131 L Potassium 4.3 Chloride 95 L Carbon Dioxide 27 Anion Gap 13 BUN 31 H Creatinine 0.65 Estim Creat Clear Calc 62.8 Estimated GFR > 60 Random Glucose 98 Calcium 9.1 Microbiology Microbiology Results: Microbiology 09/26/22 Unknown Urine clean catch - Urine prado top Urine Culture - Final Escherichia coli Procedures Date of Service Date of Service: 09/30/22 Assessment & Plan Assessment and plan (1) Acute hyponatremia: Status: Acute Plan 82-year-old woman with hyponatremia. probably has hypotonic hyponatremia. Clinically she appears euvolemic. Recommendations Restrict oral free water intake to 1.2 L per 24 hours. urea powder 15 g p.o. b.i.d. to increase osmotic load. Goal is to maintain serum sodium more than 130 millimoles. There is no indication for hypertonic saline at this time. I would avoid diuretics especially thiazide type diuretics given the history of hyponatremia. can use alternate agents like amlodipine to control blood pressure. Time Spent With Patient Time: Total time managing care of this patient today ____ minutes. Progress Note: Quality Stroke Does the patient have a stroke diagnosis?: No
[2022-09-30 11:19] VITALS: BP 122/64; PULSE 75; RESP 17; TEMP 36.5; O2SAT 96
--- NOTE | 2022-09-30 12:03 | PM.DS ---
DS: Providers Provider Date of Service: 09/30/22 Date of admission: 09/26/22 12:25 Primary care physician: Checo Lin MD Consults: 09/27/22 06:50 Consult to Cardiology Routine Consulting Provider: [facility] [place] Cardiovascular Services Reason for consultation: abnormal ekg, new LBBB 09/28/22 07:49 Consult to Nephrology Routine Consulting Provider: Romaine Post Reason for consultation: Hyponatremia, acute on chronic, for eval DS: Diagnosis Discharge Diagnosis (1) Acute hyponatremia: Status: Acute DS: Summary Hospital Course Hospital Course: from initial hpi: 82 years old lady with PMH of Afib on eliquis, TAVR, HTN who presents to the hospital complaining of 1 week of coughing and chest congestion complicated by fall and near syncope this morning. Reported that her partner has URI symptoms as well but this morning she went to herbathroom and developed cold sweats and felt lightheaded and too weak to stay up and had to lower her self down. once her frnd brought her the walker she stood up then seems to have syncope but denies losing conciousness. Denies any fever, chills, chest pain, palpitations, nausea, vomiting diarrhea or urinary symptoms. In ED found to have low Na level of 126 with no CXR. Admitted for further eval and treatment. hospital course: Patient was admitted for syncope likely related to acute bronchitis secondary to human metapneumovirus complicated by hyponatremia due to SIADH and poor solute intake. Patient was treated with steroids, bronchodilators, chlorthalidone was held, was given fluid restriction and urea. No events on telemetry. Sodium improved to 131 at an acceptable rate prior to discharge. For paroxysmal atrial fibrillation she was continued on metoprolol and apixaban. For hypertension her chlorthalidone was held and she was started on amlodipine instead. Patient is feeling better will be discharged home. She should repeat BMP in 1 week. Time Spent with Patient Time attestation: Total time managing care of this patient today ____ minutes. Discharge coordination time: Greater than 30 minutes Quality: Safe Use of Opioids Does Pt have an Active Cancer Diagnosis on the Problem List?: No Quality: Stroke Does the patient have a stroke diagnosis?: No Physical Exam Vital Signs: Vital Signs: Last Vital Signs Temp 97.7 F 09/30/22 11:19 Pulse 75 09/30/22 11:19 Resp 17 09/30/22 11:19 BP 122/64 09/30/22 11:19 Pulse Ox 96 09/30/22 11:19 O2 Del Method Room Air 09/30/22 11:19 BMI result Body Mass Index 25.4 General: AO X 3, no acute distress Resp: CTA bilateral, no accessory muscles used CVS: S1,S2,RRR GI: soft, non tender, non distended Neuro: motor grossly intact, alert Psych: appropriate affect, appropriate insight DS: Data Data Completed and Pending Labs on day of discharge: Laboratory Results - last 24 hr 09/30/22 05:53 Sodium 131 L Potassium 4.3 Chloride 95 L Carbon Dioxide 27 Anion Gap 13 BUN 31 H Creatinine 0.65 Estim Creat Clear Calc 62.8 Estimated GFR > 60 Random Glucose 98 Calcium 9.1 Discharge Plan Discharge Anticipated Discharge Date/Time: 09/30/22 12:00 Patient Disposition: Home, Self-Care Discharge Diagnosis: human metapneumovirus, siadh Referrals: Checo Lin MD [Primary Care Provider] - 1 Week Discharge Medications: New amlodipine 5 mg Tablet 5 mg PO DAILY Qty: 30 0RF Protocol: Hold for SBP< HOLD for SBP < : 90 prednisone 20 mg tablet 40 mg PO DAILY Qty: 10 0RF Continued Eliquis 5 mg tablet 5 mg PO BID metoprolol succinate 50 mg tablet extended release 24 hr 50 mg PO BEDTIME fluticasone propionate 50 mcg/actuation spray,suspension 1 spray intranasal BID Discontinued chlorthalidone 25 mg tablet 25 mg PO DAILY Discharge Orders: Discharge Order (Routine); Ordered 09/30/22 Ordered By: Shyam Ward Diet: Advance to usual diet Activity on Discharge: As tolerated Stand Alone Forms: Patient Portal Discharge page Other Ambulatory Orders: Basic Metabolic Panel (Routine) Timeframe: 1 Week Facility: [facility] - Location: Laboratory Ordered By: Shyam Ward Care Plan Goals: recovery Health Concerns: siadh, bronchitis Plan of Treatment: 5 more days prednisone, repeat labs in 1 weeks, sotopped chlorthalidone, start amlodipnie instead Assessment: see above
--- NOTE | 2022-09-30 12:09 | MHC.CM.PN ---
Patient has been medically cleared for dc to home today, self care. CM met with Patient at bedside and addressed IMM with her, providing her with the original and placing a copy on the chart. Patient's Daughter will transport Patient to home and Patient is pleased with the dc plan.
== END 2022-09-30 12:41 | disposition home or self-care (01) | DRG 202 ==
LOC: HO.ED 09:21 → HO.EDOVER 12:34 → HO.S3 16:32 → HO.IMC 16:56
PROVIDERS: Internal Medicine; Nurse Practitioner Family; Admitting Provider Student in an Organized Health Care Education/Training Program; Emergency Provider Emergency Medicine; PCP Internal Medicine; Visit Provider Internal Medicine
DX: J20.8 Acute bronchitis due to other specified organisms (principal); E22.2 Syndrome of inappropriate secretion of antidiuretic hormone; I47.20 Ventricular tachycardia, unspecified; I95.1 Orthostatic hypotension; I48.0 Paroxysmal atrial fibrillation; E86.0 Dehydration; I44.7 Left bundle-branch block, unspecified; Z95.2 Presence of prosthetic heart valve; Z91.120 Patient's intentional underdosing of medication regimen due to financial hardship; Z79.01 Long term (current) use of anticoagulants; Z79.51 Long term (current) use of inhaled steroids; Z79.899 Other long term (current) drug therapy
CPT/HCPCS: 0241U; 36415; 71046; 80048; 80076; 81001; 83735; 83880; 83930; 83935; 84300; 84443; 84484; 85025; 85610; 87086; 87088; 87186; 87633; 93005; 94640; 94664; 97161; 99285; J2920; J3475

== ENCOUNTER 2022-10-12 07:28 | Outpatient (REF) | payer MEDICARE, OTHER, SELFPAY ==
[2022-10-12 11:47] LABS: Anion Gap 10 (12-20); Blood Urea Nitrogen 14 mg/dL (9-16); Calcium 8.9 mg/dL (8.4-10.2); Carbon Dioxide 30 mmol/L (22-29); Chloride 102 mmol/L (96-108); Estimated Glomerular Filt Rate > 60; Glucose Random 82 mg/dL (60-115); Potassium 3.9 mmol/L (3.3-5.1); Sodium 138 mmol/L (135-145)
[2022-10-12 12:01] LABS: Osmolality, Serum 286 mosm/kg (281-305)
== END 2022-10-12 07:29 | disposition home or self-care (01) ==
LOC: HO.MANLDS 07:28
PROVIDERS: Visit Provider Physician Assistant
DX: E87.1 Hypo-osmolality and hyponatremia (principal)
CPT/HCPCS: 36415; 80048; 83930

== ENCOUNTER 2022-10-16 07:29 | Outpatient (REF) | payer MEDICARE, OTHER, SELFPAY ==
[2022-10-16 11:14] LABS: MANUAL DIFF FLAG NO
[2022-10-16 12:07] LABS: Basophils Absolute Auto 0.1 X10*3/uL (0.0-0.2); Basophils Percent Auto 0.9 % (0-2); Eosinophils Absolute Auto 0.2 X10*3/uL (0.0-0.4); Eosinophils Percent Auto 2.7 % (0-4); Hematocrit 41.1 % (37.0-47.0); Hemoglobin 13.3 g/dl (12.0-16.0); Imm Gran Abs Auto 0.04 X10*3/uL (0.00-0.03); Imm Gran Pct Auto 0.6 % (0.0-0.4); Lymphocytes Absolute Auto 1.4 X10*3/uL (1.2-4.9); Lymphocytes Percent Auto 21.9 % (20-40); Mean Corpuscular HGB Conc 32.4 g/dl (31.0-35.0); Mean Corpuscular Hemoglobin 30.3 pg (27.0-33.0); Mean Corpuscular Volume 93.6 fL (80.0-98.0); Mean Platelet Volume 10.4 fL (9.4-12.3); Monocytes Absolute Auto 0.9 X10*3/uL (0.1-1.2); Monocytes Percent Auto 14.4 % (2-11); Neutrophils Absolute Auto 3.8 x10*3/uL (2.0-8.3); Neutrophils Percent Auto 59.5 % (45-73); Platelet Count 297 X10*3/uL (160-400); Red Blood Count 4.39 X10*6/uL (4.20-5.50); Red Cell Distribution Width 13.1 % (11.0-16.0); White Blood Count 6.3 X10*3/uL (4.8-10.8)
[2022-10-16 12:39] LABS: Anion Gap 12 (12-20); Blood Urea Nitrogen 14 mg/dL (9-16); Calcium 8.9 mg/dL (8.4-10.2); Carbon Dioxide 29 mmol/L (22-29); Chloride 105 mmol/L (96-108); Estimated Glomerular Filt Rate > 60; Glucose Random 73 mg/dL (60-115); Iron 67 mcg/dL (30-160); Percent Iron Saturation 25 % (15-50); Sodium 142 mmol/L (135-145); Total Iron Binding Capacity 269 mcg/dL (228-428); Unsaturated Iron Binding 202 ug/dL
[2022-10-16 12:44] LABS: Ferritin 361 ng/mL (10-250)
== END 2022-10-16 07:30 | disposition home or self-care (01) ==
LOC: HO.MANLDS 07:29
PROVIDERS: Visit Provider Physician Assistant
DX: R04.0 Epistaxis (principal); E87.1 Hypo-osmolality and hyponatremia; R68.89 Other general symptoms and signs
CPT/HCPCS: 36415; 80048; 82728; 83540; 85025

== ENCOUNTER → 2022-10-28 09:49 | Outpatient (BNVA) | payer MEDICARE, OTHER, SELFPAY | PROVIDERS: PCP Internal Medicine; Visit Provider Internal Medicine Cardiovascular Disease | DX: I48.0 Paroxysmal atrial fibrillation (principal); I44.7 Left bundle-branch block, unspecified; Z95.2 Presence of prosthetic heart valve | CPT/HCPCS: 99212 ==

== ENCOUNTER → 2022-11-13 13:31 | Outpatient (REF) | payer MEDICARE, OTHER, SELFPAY | LOC: HO.CARD 13:31 | PROVIDERS: PCP Internal Medicine; Visit Provider Internal Medicine Cardiovascular Disease | DX: I48.0 Paroxysmal atrial fibrillation (principal); I49.3 Ventricular premature depolarization; R55 Syncope and collapse | CPT/HCPCS: 93270 ==

== ENCOUNTER → 2022-11-13 13:35 | Outpatient (BNV) | payer MEDICARE, OTHER, SELFPAY | PROVIDERS: PCP Internal Medicine; Visit Provider Internal Medicine | DX: I47.1 Supraventricular tachycardia (principal) | CPT/HCPCS: 93272 ==

== ENCOUNTER → 2023-03-09 07:54 | Outpatient (REF) | payer MEDICARE, OTHER, SELFPAY ==
--- NOTE | 2023-03-09 07:58 | HM_ITS ---
Conclusion: 1. Patient was monitored for total period of 2 days and 20 hours 2. Baseline was normal sinus rhythm with average heart rate of 75 beats per minute 3. No significant pauses noted next 4. Frequent PVCs noted with total burden of 1.9% with 2 nonsustained ventricular tachycardia episodes noted with the fastest 5 beats at 182 beats per minute 4. Occasional PACs noted 5. Patient reported 1 event but did not report any symptoms on the diary correlated with PVC MTDD
== END ==
LOC: HO.CARD 07:54
PROVIDERS: PCP Internal Medicine; Visit Provider Internal Medicine Cardiovascular Disease
DX: I48.0 Paroxysmal atrial fibrillation (principal)
CPT/HCPCS: 93242

== ENCOUNTER → 2023-03-09 07:58 | Outpatient (BNV) | payer MEDICARE, OTHER, SELFPAY | PROVIDERS: PCP Internal Medicine; Visit Provider Internal Medicine Cardiovascular Disease | DX: I49.3 Ventricular premature depolarization (principal) | CPT/HCPCS: 93244 ==

== ENCOUNTER 2023-03-26 07:51 | Outpatient (REF) | payer MEDICARE, OTHER, SELFPAY | END 2023-03-26 07:52 | disposition home or self-care (01) | LOC: HO.MAMMO 07:51 | PROVIDERS: PCP Internal Medicine; Visit Provider Internal Medicine | DX: Z12.31 Encounter for screening mammogram for malignant neoplasm of breast (principal) | CPT/HCPCS: 77063; 77067 ==

== ENCOUNTER → 2023-03-26 08:00 | Outpatient (BNV) | payer MEDICARE, OTHER, SELFPAY | PROVIDERS: PCP Internal Medicine; Visit Provider Radiology Diagnostic Radiology | DX: Z12.31 Encounter for screening mammogram for malignant neoplasm of breast (principal) | CPT/HCPCS: 77063; 77067 ==

== ENCOUNTER 2023-05-04 08:18 | Outpatient (REF) | payer MEDICARE, OTHER, SELFPAY ==
[2023-05-04 10:04] LABS: Anion Gap 14 (12-20); Blood Urea Nitrogen 19 mg/dL (9-16); Carbon Dioxide 27 mmol/L (22-29); Chloride 99 mmol/L (96-108); Estimated Glomerular Filt Rate 56; Glucose Random 87 mg/dL (60-115); Potassium 4.2 mmol/L (3.3-5.1); Sodium 136 mmol/L (135-145)
== END 2023-05-04 08:19 | disposition home or self-care (01) ==
LOC: HO.LAB 08:18
PROVIDERS: PCP Internal Medicine; Visit Provider Internal Medicine Cardiovascular Disease
DX: I48.0 Paroxysmal atrial fibrillation (principal); I34.0 Nonrheumatic mitral (valve) insufficiency; I44.7 Left bundle-branch block, unspecified; Z95.2 Presence of prosthetic heart valve; Z79.01 Long term (current) use of anticoagulants; Z79.899 Other long term (current) drug therapy
CPT/HCPCS: 36415; 80048; 99212

== ENCOUNTER 2023-05-04 08:18 | Outpatient (AMB) | payer MEDICARE, OTHER, SELFPAY ==
--- NOTE | 2023-05-04 08:34 | MHC.OFFVIS ---
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 She has been doing well. She could not tolerate metoprolol therapy which made her tired and fatigued. She is currently on diltiazem therapy and tolerating well. Denies any skipped heartbeats or palpitations. Denies any prolonged irregular heartbeat. No bleeding issues or neurologic events. No exertional shortness of breath, orthopnea, PND. No lightheadedness, syncope. No exertional chest pain. [facility] Medical History Paroxysmal atrial fibrillation HTN (hypertension) Surgical History History of appendectomy History of hysterectomy S/P TAVR (transcatheter aortic valve replacement) Family History Mother No problems noted. Father Bladder cancer Daughter Autoimmune disease Social History Household Members: Spouse Housing: House Do you presently have visiting nurse or other home services: No Alcohol intake: current Alcohol intake frequency: 0-2 drinks per day Alcohol type: wine and hard liquor Patient Tobacco Use Status: Never used Tobacco Years Smoked: 10 +/- service: No Current occupational status: retired Review of Systems Const Denies chills, Denies fatigue, Denies fever(s), Denies frequent falls, Denies weakness, Denies weight gain and Denies weight loss ENT Denies dizziness Card Denies chest pain, Denies leg edema, Denies lightheadedness, Denies palpitations, Denies dyspnea, Denies dyspnea on exertion, Denies orthopnea and Denies other (loss of consciousness) Resp Denies cough, Denies dyspnea and Denies dyspnea on exertion GI Denies hematochezia and Denies change in stool character Musc Denies abnormal gait, Denies muscle weakness, Denies numbness, Denies radiating pain into limb and Denies tingling Neuro Denies Abnormal speech present, Denies abnormal gait, Denies dizziness, Denies frequent falls, Denies numbness, Denies tingling and Denies weakness Endo Denies fatigue and Denies palpitations Physical Exam Vital Signs: Last Vital Signs Pulse 80 05/04/23 08:37 BP 116/70 05/04/23 08:37 BMI result Body Mass Index 25.4 Const General: cooperative, comfortable, no acute distress, well developed, alert, awake, Physically active and well groomed Nutritional Appearance: average body habitus and well nourished Orientation/consciousness: patient oriented x3 Limitations: no limitations Neck Neck: Yes trachea midline, Yes supple and Yes no JVD Chest Chest palpation & inspection: normal inspection of the chest Resp Effort & Inspection: normal respiratory effort Auscultation: clear to auscultation bilaterally Cardio Jugular venous distension: no JVD Palpation: normal PMI Rate: regular rate Rhythm: abnormal rhythm with ectopic beats Heart sounds: S1 normal heart sound present, S2 normal heart sound present and Murmur heart sound present systolic early GI Auscultation: normal bowel sounds Skin General skin exam: no rashes or lesions noted Neuro General: patient oriented x3 and no focal motor deficits Speech: No Abnormal speech present Extrem General: Yes no clubbing, cyanosis or edema Assessment & Plan Assessment & Plan (1) Paroxysmal atrial fibrillation: Code(s): I48.0 - Paroxysmal atrial fibrillation Plan: Paroxysmal atrial fibrillation which has remained suppressed on current therapy. Doing well with Cardizem therapy. Tolerating that well. Continue the same. Avoidance of stimulants was discussed advised to call me with recurrent symptoms that may require antiarrhythmic drug therapy. Continue full oral anticoagulation, currently on Eliquis 5 mg b.i.d.. Semi annual renal function test should be pursued. (2) S/P TAVR (transcatheter aortic valve replacement): Comment: 26 mm Evolut, 12/09/2020 Code(s): Z95.2 - Presence of prosthetic heart valve Plan: Status post transcatheter aortic valve replacement, working well. Continue Eliquis as above. Continue aggressive blood pressure control. Target goal LDL less than 100 mg/dL. SBE prophylaxis as per ACC/aha guidelines. (3) Left bundle branch block: Code(s): I44.7 - Left bundle-branch block, unspecified Plan: Left bundle-branch block most likely due to transcatheter aortic valve replacement. No symptoms related to it. No further interventions required at this point time. Will continue monitor LV ejection fraction (4) Mitral regurgitation: Code(s): I34.0 - Nonrheumatic mitral (valve) insufficiency Plan: Mitral regurgitation which is [id number]. Not clinically or hemodynamically significant this point time. Will continue monitor by clinical symptoms as well as by echocardiogram. Will follow up in the clinic in 6 months time, sooner p.r.n.. Thank you for allowing me to partake in her care Orders: Orders CA echo transthoracic complete 6 Months Z95.2 - Presence of prosthetic heart valve Basic Metabolic Panel Today I48.0 - Paroxysmal atrial fibrillation Coding Level of Care Code Est Pt Level 4 (90018) Diagnoses Paroxysmal atrial fibrillation I48.0 S/P TAVR (transcatheter aortic valve replacement) Z95.2 Left bundle branch block I44.7 Mitral regurgitation I34.0
[2023-05-04 08:37] VITALS: BP 116/70; PULSE 80; BMI 25.4
== END 2023-05-04 08:57 | disposition home or self-care (01) ==
PROVIDERS: Visit Provider Internal Medicine Cardiovascular Disease
DX: I48.0 Paroxysmal atrial fibrillation (principal); Z95.2 Presence of prosthetic heart valve; I44.7 Left bundle-branch block, unspecified; I34.0 Nonrheumatic mitral (valve) insufficiency
CPT/HCPCS: 99214

== ENCOUNTER → 2023-10-13 08:38 | Outpatient (REF) | payer MEDICARE, OTHER, SELFPAY ==
--- NOTE | 2023-10-13 08:41 | CA_ITS ---
Transthoracic Echocardiogram Patient (Last, First, Middle): Michelle Lai, Gender: Female Date of : 1940 Age: 83 Procedure Date: 10/13/2023 Procedure Type: Transthoracic Echocardiogram Location: OP Height: 162.56 cm Weight: 68.04 kg BSA: 1.73 m2 Heart Rate: bpm BP: 137 / 90 mmHg Chemical Engraver: NAA Referring MD: Gagan Barnard MD Retail Performance Specialist: Gagan Barnard MD Symptoms: Z95.2 - Presence of prosthetic heart valve Study Quality: Adequate ECG Rhythm: Sinus Conclusions: - 1. Mildly reduced LV ejection fraction at 45-50% with elevated filling pressures 2. Moderately dilated left atrium 3. Normally functioning bioprosthetic aortic valve with mean gradient of 7 mm Hg 4. Mild mitral regurgitation 5. Normal RV systolic pressure 6. Upper limits of normal ascending aortic size 7. No gross pericardial effusion Findings Left Ventricle Normal left ventricular cavity size. There is normal left ventricular wall thickness. The left ventricular systolic function is mildly decreased. The visually estimated ejection fraction is between 45-50%. There is mild global hypokinesis. Spectral Doppler is indicative of an impaired relaxation filling pattern. Elevated filling pressures. E/E prime ratio is >15, consistent with elevated filling pressures. Right Ventricle Normal right ventricular cavity size and systolic function. Atria The left atrium is moderately dilated. There is no evidence of interatrial shunt. The right atrium is mildly dilated. Aortic Valve A bioprosthetic aortic valve is present. The prosthetic aortic valve appears to be functioning normally. The mean gradient is 7 mmHg. Mitral Valve There is mild anterior and posterior mitral leaflet thickening. There is mild mitral annular calcification. There is mild mitral valve regurgitation. There is no mitral valve stenosis. Pulmonic Valve The pulmonic valve was not well visualized. Tricuspid Valve Likely normal tricuspid valve structure and function. There is trace tricuspid valve regurgitation. The right ventricular systolic pressure is normal. The right ventricular systolic pressure is 26 mmHg. Normal right atrial pressure. There is no evidence of pulmonary hypertension. Great Vessels The pulmonary artery was not well visualized. Venous The inferior vena cava is normal in size and collapses greater than 50% with inspiration. Pericardium/Pleural There is no evidence of pericardial effusion. Prior Study Comparison Changes noted compared to prior study dated: 09/21/2022. LV systolic function is reduced Measurements 2D Linear Measurements IVSd: 1.00 0.6-0.9/0.6-1.0 cm LVIDd: 4.53 3.9-5.3/4.2-5.9 cm LVIDd Index: 2.62 2.4-3.2/2.2-3.1 cm/m2 LVIDs: 3.77 2.0-3.6 cm LVPWd: 0.99 0.7-1.1 cm LA Diam: 4.00 2.7-3.8/3.0-4.0 cm LAIDs Index: 2.31 1.5-2.3 cm/m2 LV Mass: 191.05 67-162/88-224 g LV Mass Index: 110.43 43-95/49-115 g/m2 LVOT Diam: 1.80 3.0+(-)1.3 cm 2D Systolic Function EF 4C: 39.00 >55% EF 2C: 53.40 >55% EF BiP: 46.90 >55% Mitral Valve MV Pk E: 0.80 MV PK A: 1.09 MV Decel Time: 151.00 E/A: 0.70 E'Lateral: 4.46 E'Medial: 3.59 E/E' Med: 22.20 E/E' Lat: 17.90 PHT: 44.00 MVA PHT: 5.00 Decel [place]: 5.29 Aortic Valve AoV Pk Mamadou: 1.83 AoV Mn Mamadou: 1.27 AoV VTI: 0.40 AoV Pk Grad: 13.00 Aov Mn Grad: 7.00 KALA Cont.VTI: 1.09 LVOT LVOT Pk Mamadou: 0.83 LVOT Mn Mamadou: 0.56 LVOT VTI: 0.17 LVOT Pk Grad: 3.00 LVOT Mn Grad: 1.00 LVOT Diam: 1.80 LVOT Area: 2.54 Diastolic Function MV Pk E: 0.80 MV Pk A: 1.09 E/A: 0.70 E'Medial: 3.59 E/E' Med: 22.20 E' Laterial: 4.46 E/E' Lat: 17.90 Right Ventricle TAPSE (mm): 26.90 TVS' Mamadou: 12.70 Tricuspid Valve TR Pk Mamadou: 2.38 TR Pk Grad: 23.00 RA Press: 3.00 RVSP: 26.00 Great Vessels Aorta Ao Asc: 3.50 2.1-3.4 cm Updated in Other Vendor System with Status of Final Gagan Barnard MD electronically signed on 10/14/2023 2:31:27 PM with status of Final
== END ==
LOC: HO.CARD 08:38
PROVIDERS: PCP Internal Medicine; Visit Provider Internal Medicine Cardiovascular Disease
DX: Z95.2 Presence of prosthetic heart valve (principal)
CPT/HCPCS: 93306

== ENCOUNTER → 2023-10-13 08:41 | Outpatient (BNV) | payer MEDICARE, OTHER, SELFPAY | PROVIDERS: PCP Internal Medicine; Visit Provider Internal Medicine Cardiovascular Disease | DX: I34.0 Nonrheumatic mitral (valve) insufficiency (principal); Z95.3 Presence of xenogenic heart valve | CPT/HCPCS: 93306 ==

== ENCOUNTER → 2023-11-04 08:52 | Outpatient (BNVA) | payer MEDICARE, OTHER, SELFPAY | PROVIDERS: PCP Internal Medicine; Visit Provider Internal Medicine Cardiovascular Disease | DX: I48.0 Paroxysmal atrial fibrillation (principal); I42.9 Cardiomyopathy, unspecified; Z95.2 Presence of prosthetic heart valve | CPT/HCPCS: 93005; 99212 ==

== ENCOUNTER 2023-11-04 08:53 | Outpatient (AMB) | payer MEDICARE, OTHER, SELFPAY ==
--- NOTE | 2023-11-04 08:55 | A.OFFVIS_ITS ---
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 She says since starting metoprolol she has been feeling very tired and groggy and sleepy. She said she takes metoprolol at nighttime. Despite that she has those symptoms. She denies any heart failure symptoms. Although she says she does get more short of breath. She says she has not been exercising over the winter. Denies any prolonged palpitation irregular heartbeat. Recent echocardiogram shows normally functioning aortic valve, bioprosthetic with normal gradients. Although there is mild reduction LV ejection fraction. She has no exertional chest pain. No lightheadedness, syncope. [facility] Medical History Paroxysmal atrial fibrillation HTN (hypertension) Surgical History History of appendectomy History of hysterectomy S/P TAVR (transcatheter aortic valve replacement) Family History Mother No problems noted. Father Bladder cancer Daughter Autoimmune disease Social History Household Members: Spouse Housing: House Do you presently have visiting nurse or other home services: No Alcohol intake: current Alcohol intake frequency: 0-2 drinks per day Alcohol type: wine and hard liquor Comment: pt refuses high fall prevention Patient Tobacco Use Status: Never used Tobacco Years Smoked: 10 +/- service: No Current occupational status: retired Review of Systems Const Denies chills, Denies fatigue, Denies fever(s), Denies frequent falls, Denies weakness, Denies weight gain and Denies weight loss ENT Denies dizziness Card Denies chest pain, Denies leg edema, Denies lightheadedness, Denies palpitations, Denies dyspnea, Denies dyspnea on exertion, Denies orthopnea and Denies other (loss of consciousness) Resp Denies cough, Denies dyspnea and Denies dyspnea on exertion GI Denies hematochezia and Denies change in stool character Musc Denies abnormal gait, Denies muscle weakness, Denies numbness, Denies radiating pain into limb and Denies tingling Neuro Denies Abnormal speech present, Denies abnormal gait, Denies dizziness, Denies frequent falls, Denies numbness, Denies tingling and Denies weakness Endo Denies fatigue and Denies palpitations Physical Exam Vital Signs: Last Vital Signs Pulse 67 11/04/23 08:56 BP 142/86 H 11/04/23 08:56 BMI result Body Mass Index 25.7 Const General: cooperative, comfortable, no acute distress, well developed, alert, awake, Physically active and well groomed Nutritional Appearance: average body habitus and well nourished Orientation/consciousness: patient oriented x3 Limitations: no limitations Neck Neck: Yes trachea midline, Yes supple and Yes no JVD Chest Chest palpation & inspection: normal inspection of the chest Resp Effort & Inspection: normal respiratory effort Auscultation: clear to auscultation bilaterally Cardio Jugular venous distension: no JVD Palpation: normal PMI Rate: regular rate Rhythm: abnormal rhythm with ectopic beats Heart sounds: S1 normal heart sound present, S2 normal heart sound present and Murmur heart sound present systolic early GI Auscultation: normal bowel sounds Skin General skin exam: no rashes or lesions noted Neuro General: patient oriented x3 and no focal motor deficits Speech: No Abnormal speech present Extrem General: Yes no clubbing, cyanosis or edema Office Procedures EKG Details: EKG shows normal sinus rhythm with IV CD with left bundle morphology [id number], Complete Assessment & Plan Assessment & Plan (1) S/P TAVR (transcatheter aortic valve replacement): Comment: 26 mm Evolut, 12/09/2020 Code(s): Z95.2 - Presence of prosthetic heart valve Category: Surgical Plan: Status post transcatheter aortic valve replacement which is working very well from cardiac perspective she has no issues. Continue oral anticoagulation therapy. Continue risk factor modification. Continue SBE prophylaxis as per ACC/aha guidelines. (2) Paroxysmal atrial fibrillation: Code(s): I48.0 - Paroxysmal atrial fibrillation Category: Medical Plan: Paroxysmal atrial fibrillation without any new symptoms at this point time. No need for antiarrhythmic drug therapy. Continue with rhythm control approach. Continue metoprolol but at low dose at 25 mg daily. If she does not tolerate the side effects will try to switch her to an alternative beta-jeremias for both neurohormonal purposes as well as to reduce risk of recurrent atrial fibrillation. (3) Cardiomyopathy: Code(s): I42.9 - Cardiomyopathy, unspecified Category: Medical Plan: Mild cardiomyopathy probably related to left bundle morphology. No signs or symptoms of heart failure. Discussed about neurohormonal modulation. Would add valsartan 80 mg daily to her regimen. Reduce metoprolol as about to 25 mg daily. Importance of neurohormonal modulation and rationale for therapy was discussed. Follow-up BMP in 1 week. Will follow up in the clinic in 6 months time, sooner p.r.n.. Thank you for allowing me to partake in her care Orders: Orders Basic Metabolic Panel 1 Month I42.9 - Cardiomyopathy, unspecified Medications: New valsartan 80 mg PO DAILY 30 tabs 5RF Changed From metoprolol succinate ER Stop diltiazem and take this metoprolol per Dr. Barnard's orders 10/14/2023 50 mg PO DAILY 30 tabs 5RF To metoprolol succinate ER Stop diltiazem and take this metoprolol per Dr. Barnard's orders 10/14/2023 25 mg (1/2 x 50 mg) PO DAILY 30 tabs 5RF Coding Level of Care Code Est Pt Level 4 (05040) Diagnoses S/P TAVR (transcatheter aortic valve replacement) Z95.2 Paroxysmal atrial fibrillation I48.0 Cardiomyopathy I42.9 CPT Codes EKG - CPT: 66587-[id number], Complete ([id number])
[2023-11-04 08:56] VITALS: BP 142/86; PULSE 67; BMI 25.7
== END 2023-11-04 09:14 | disposition home or self-care (01) ==
PROVIDERS: PCP Internal Medicine; Visit Provider Internal Medicine Cardiovascular Disease
DX: Z95.2 Presence of prosthetic heart valve (principal); I48.0 Paroxysmal atrial fibrillation; I42.9 Cardiomyopathy, unspecified
CPT/HCPCS: 93010; 99214

== ENCOUNTER 2023-12-01 09:25 | Outpatient (REF) | payer MEDICARE, OTHER, SELFPAY ==
[2023-12-01 12:33] LABS: Anion Gap 10 (12-20); Blood Urea Nitrogen 16 mg/dL (9-16); Calcium 9.1 mg/dL (8.4-10.2); Carbon Dioxide 30 mmol/L (22-29); Chloride 98 mmol/L (96-108); Estimated Glomerular Filt Rate > 60; Glucose Random 81 mg/dL (60-115); Potassium 4.7 mmol/L (3.3-5.1); Sodium 133 mmol/L (135-145)
== END 2023-12-01 09:26 | disposition home or self-care (01) ==
LOC: HO.WFDLDS 09:25
PROVIDERS: Visit Provider Internal Medicine Cardiovascular Disease
DX: I42.9 Cardiomyopathy, unspecified (principal)
CPT/HCPCS: 36415; 80048

== ENCOUNTER 2023-12-22 14:50 | Outpatient (REF) | payer MEDICARE, OTHER, SELFPAY ==
[2023-12-22 17:23] LABS: MANUAL DIFF FLAG NO
[2023-12-22 17:35] LABS: Basophils Absolute Auto 0.1 X10*3/uL (0.0-0.2); Basophils Percent Auto 0.8 % (0-2); Eosinophils Absolute Auto 0.1 X10*3/uL (0.0-0.4); Eosinophils Percent Auto 2.4 % (0-4); Hematocrit 41.2 % (37.0-47.0); Hemoglobin 13.5 g/dl (12.0-16.0); Imm Gran Abs Auto 0.04 X10*3/uL (0.00-0.03); Imm Gran Pct Auto 0.7 % (0.0-0.4); Lymphocytes Absolute Auto 1.5 X10*3/uL (1.2-4.9); Lymphocytes Percent Auto 24.5 % (20-40); Mean Corpuscular HGB Conc 32.8 g/dl (31.0-35.0); Mean Corpuscular Hemoglobin 30.2 pg (27.0-33.0); Mean Corpuscular Volume 92.2 fL (80.0-98.0); Mean Platelet Volume 10.7 fL (9.4-12.3); Monocytes Absolute Auto 0.7 X10*3/uL (0.1-1.2); Monocytes Percent Auto 11.3 % (2-11); Neutrophils Absolute Auto 3.6 x10*3/uL (2.0-8.3); Neutrophils Percent Auto 60.3 % (45-73); Platelet Count 216 X10*3/uL (160-400); Red Blood Count 4.47 X10*6/uL (4.20-5.50); White Blood Count 5.9 X10*3/uL (4.8-10.8)
[2023-12-22 18:04] LABS: Alanine Aminotransferase 12 U/L (0-31); Alkaline Phosphatase 63 U/L (39-117); Anion Gap 10 (12-20); Aspartate Amino Transferase 20 U/L (5-31); Bilirubin Total 0.4 mg/dL (0.0-1.0); Blood Urea Nitrogen 21 mg/dL (9-16); Calcium 9.3 mg/dL (8.4-10.2); Carbon Dioxide 30 mmol/L (22-29); Chloride 99 mmol/L (96-108); Estimated Glomerular Filt Rate > 60; Glucose Random 84 mg/dL (60-115); Iron 63 mcg/dL (30-160); Percent Iron Saturation 22 % (15-50); Potassium 4.4 mmol/L (3.3-5.1); Sodium 135 mmol/L (135-145); Total Iron Binding Capacity 282 mcg/dL (228-428); Total Protein 6.5 g/dL (6.5-8.0); Unsaturated Iron Binding 219 ug/dL
[2023-12-22 18:22] LABS: Ferritin 207 ng/mL (10-250); Free T4 (Free Thyroxine) 0.95 ng/dL (0.71-1.85); Thyroid Stimulating Hormone 2.55 uIU/mL (0.32-4.0); Vitamin D 25-OH Total 30.5 ng/mL (>30)
[2023-12-22 18:33] LABS: Folate 6.3 ng/mL (> or = 4.0); Vitamin B12 893 pg/mL (200-900)
[2023-12-23 05:35] LABS: Estimated Average Glucose 108 mg/dL; Hemoglobin A1c % 5.4 % (<6.0)
== END 2023-12-22 14:51 | disposition home or self-care (01) ==
LOC: HO.MANLDS 14:50
PROVIDERS: Visit Provider Physician Assistant
DX: R53.83 Other fatigue (principal); Z13.1 Encounter for screening for diabetes mellitus; Z13.89 Encounter for screening for other disorder
CPT/HCPCS: 36415; 80053; 82306; 82607; 82728; 82746; 83036; 83540; 84439; 84443; 85025

== ENCOUNTER 2024-02-05 19:10 | Emergency (ER) | payer MEDICARE, OTHER, SELFPAY ==
--- NOTE | 2024-02-05 | ECG_ITS ---
Test Reason : DIZZINESS Blood Pressure : / mmHG Vent. Rate : 110 BPM Atrial Rate : 110 BPM P-R Int : 174 ms QRS Dur : 130 ms QT Int : 338 ms P-R-T Axes : 000 -60 097 degrees QTc Int : 457 ms Sinus tachycardia with occasional Premature ventricular complexes Left axis deviation Left bundle branch block Abnormal ECG When compared with ECG of 27-SEP-2022 00:25, No significant change was found Referred By: Generic ED Physician Electronically Signed By:Samir Montez
--- NOTE | ~2024-02-05 | XR_ITS ---
EXAMINATION: XR CHEST CLINICAL INFORMATION: Covid-19; question pneumonia. COMPARISON: Chest radiographs dated 09/26/2022. TECHNIQUE: Frontal view of the chest was obtained. FINDINGS: No significant abnormality is noted involving the heart, lungs, mediastinum, bony thorax or soft tissues. There are multiple overlapping monitor leads. XR/XR chest 1V IMPRESSION: Unremarkable examination.
[2024-02-05 19:29] VITALS: BP 153/88; PULSE 95; O2SAT 95
[2024-02-05 19:31] VITALS: BP 164/85; PULSE 101; RESP 16; TEMP 37.3; O2SAT 96; BMI 25.6
[2024-02-05 20:00] VITALS: BP 155/87; PULSE 92; RESP 12; O2SAT 98
--- NOTE | 2024-02-05 20:05 | PC.NURSE ---
Pt requested and assisted to bedside commode. Pts labs drawn UA collected All sent. Plan of care ongoing.
[2024-02-05 20:08] LABS: MANUAL DIFF FLAG NO
[2024-02-05 20:14] LABS: Basophils Percent Auto 0.3 % (0-2); Eosinophils Percent Auto 0.1 % (0-4); Hematocrit 37.2 % (37.0-47.0); Hemoglobin 12.8 g/dl (12.0-16.0); Imm Gran Abs Auto 0.04 X10*3/uL (0.00-0.03); Imm Gran Pct Auto 0.4 % (0.0-0.4); Lymphocytes Absolute Auto 0.3 X10*3/uL (1.2-4.9); Lymphocytes Percent Auto 3.3 % (20-40); Mean Corpuscular HGB Conc 34.4 g/dl (31.0-35.0); Mean Corpuscular Hemoglobin 30.8 pg (27.0-33.0); Mean Corpuscular Volume 89.6 fL (80.0-98.0); Mean Platelet Volume 10.3 fL (9.4-12.3); Monocytes Absolute Auto 0.6 X10*3/uL (0.1-1.2); Monocytes Percent Auto 6.5 % (2-11); Neutrophils Absolute Auto 8.6 x10*3/uL (2.0-8.3); Neutrophils Percent Auto 89.4 % (45-73); Platelet Count 160 X10*3/uL (160-400); Red Blood Count 4.15 X10*6/uL (4.20-5.50); Red Cell Distribution Width 13.4 % (11.0-16.0); White Blood Count 9.7 X10*3/uL (4.8-10.8)
[2024-02-05 20:31] LABS: Appearance Urine Clear; Color Urine Yellow; Glucose Urine UA Negative (Negative); Leukocyte Esterase Urine Small (1+) (Negative); Nitrite Urine Negative (Negative); Specific Gravity - Urine 1.015 (1.005-1.025); UMIC TRIGGER UACC YES; Urine Blood Small (1+) (Negative); Urine Ketones 40 mg/dL (Negative); Urine Protein Negative (Neg-Trace)
[2024-02-05 20:33] LABS: Anion Gap 12 (12-20); Blood Urea Nitrogen 10 mg/dL (9-16); Calcium 8.8 mg/dL (8.4-10.2); Carbon Dioxide 26 mmol/L (22-29); Chloride 97 mmol/L (96-108); Creatinine Clr Calc Pharmacy 57.5; Estimated Glomerular Filt Rate > 60; Glucose Random 119 mg/dL (60-115); Potassium 3.4 mmol/L (3.3-5.1); Sodium 132 mmol/L (135-145)
[2024-02-05 20:36] LABS: Bacteria Urine None Seen (None Seen); Hyaline Casts Urine 0-2 /LPF (0-2); UACC Culture Trigger YES
[2024-02-05 20:54] LABS: Influenza A PCR NEGATIVE (Negative); Influenza B PCR NEGATIVE (Negative); Resp Syncy Virus RNA Qual PCR NEGATIVE (Negative); SARS COV2 PCR INHOUSE POSITIVE (Negative)
--- NOTE | 2024-02-05 21:47 | ED_ITS ---
HPI - General Adult General Chief complaint: General Medical Stated complaint: weakness Time Seen by Provider: 02/05/24 20:35 Source: patient Mode of arrival: ambulatory Limitations: no limitations History of Present Illness ED Provider: Dr. Kami Gilbert HPI narrative: Patient comes to the emergency room complaining of feeling achy, weak, no appetite, headache, stuffy nose. Patient states that about 10 days ago she was in a family reunion, her grandson had COVID at the time. Patient denies any lightheadedness , denies any syncopal or near syncopal episodes. Patient states that she has no chest pain or shortness of breath at all. Related Data Home Medications ?Medication ?Instructions ?Recorded ?Confirmed apixaban 5 mg tablet (Eliquis) 5 mg PO BID 09/08/22 11/04/23 Previous Rx's ?Medication ?Instructions ?Recorded valsartan 80 mg tablet 80 mg PO DAILY #30 tabs 11/04/23 metoprolol succinate 25 mg 25 mg PO DAILY #30 tabs 11/26/23 tablet,extended release 24 hr Allergies Allergy/AdvReac Type Severity Reaction Status Date / Time No Known Drug Allergies Allergy none Verified 02/05/24 19:40 Review of Systems 2 Review of Systems: Constitutional : No Weight loss, No Fever, No Chills, No Night Sweats, complaining of fatigue and generalized malaise ENT/Mouth : No Hearing loss, No Ear Pain, complaining of Nasal Congestion, No Sinus Pain, No Hoarseness, No sore throat, No Rhinorrhea, No Swallowing Difficulty Eyes: No Eye Pain, No Swelling, No Redness, No Foreign Body, No Discharge, No Vision Changes Cardiovascular : No Chest Pain, No SOB, No Dyspnea on Exertion, No Orthopnea, No Edema, No Palpitations Respiratory : No Cough, No Sputum, No Wheezing, No Smoke Exposure, No Dyspnea Gastrointestinal : Complaining of Nausea, No Vomiting, No Diarrhea, No Constipation, No abdominal Pain, No Hematochezia, No Melena Genitourinary : no irregular bleeding, No Dysuria, No Urinary Frequency, No Hematuria, No Urinary Incontinence, No Urgency, No Flank Pain, No Urinary Flow Changes, No Hesitancy Musculoskeletal : No joint pain, No Myalgias, No Joint Swelling Skin : No Skin Lesions, No rash Neuro : No Weakness, No Numbness, No Paresthesias, No Loss of Consciousness, No Dizziness, complaining of Headache Psych : No Anxiety/Panic, No Depression, No SI/HI/AH/VH, No Social Issues, Heme/Lymph: No Bruising, No Bleeding,No Lymphadenopathy Endocrine : No Polyuria, No Polydipsia, No Temperature Intolerance [facility] Past Medical History Medical History Paroxysmal atrial fibrillation HTN (hypertension) Surgical History History of appendectomy History of hysterectomy S/P TAVR (transcatheter aortic valve replacement) Family History Family History Mother No problems noted. Father Bladder cancer Daughter Autoimmune disease Social History Social History Household Members: Spouse Housing: House Do you presently have visiting nurse or other home services: No Alcohol intake: current Alcohol intake frequency: holidays/special occasions only Alcohol type: wine and hard liquor Comment: pt refuses high fall prevention Patient Tobacco Use Status: Never used Tobacco Years Smoked: 10 +/- Smoked in Last 30 Days: No Use of substances other than those prescribed or required for medical reasons: Yes Substance Use Type: Marijuana Advance Directives: Yes Advance Directives Information Provided: No Advance Directives on File: No Do you have a plan to hurt others: No Plan service: No Current occupational status: retired Physical Exam ED Vital Signs: Vital Signs - 24 hr 02/05/24 19:31 Temperature 99.2 F Pulse Rate 101 H Respiratory Rate 16 Blood Pressure 164/85 H Pulse Oximetry 96 Oxygen Delivery Method Room Air BMI result Body Mass Index 25.6 Const Other: Appearance: Alert. Oriented X3. No acute distress. Well-appearing Eyes: Pupils equal, round and reactive to light. ENT: Pharynx normal. Neck: Normal inspection. Neck supple. No lymph nodes noted. No crepitus CVS: Patient's heart rate irregularly irregular, heart rate between 90 and 120, Pulses normal. Normal S1 and S2 Respiratory: No respiratory distress. Breath sounds normal. No Wheezing. No rales Abdomen: Soft and nontender. No rigidity. No distention. Skin: Skin warm and dry. Normal skin color. Normal skin turgor. Extremities: No lower extremity edema. No Lacerations. No Rash Neuro: Oriented X 3. No motor deficit. No sensory deficit. Moving all extremities. No slurred speech. CN 2 through 12 grossly intact Psych: calm, cooperative, normal affect Medical Decision Making Medical Decision Making [facility] Narrative: -my interpretation of labs: Sodium slightly decreased 132, positive for UTI, positive for COVID. -patient's heart rate has been ranging between 80 and 120. Patient took her metoprolol alert this morning, patient known to have AFib, takes Eliquis. Patient was given an additional dose of metoprolol p.o.. -so, reviewing patient's past microbiology reports for UTIs, patient had similar looking urinalysis, sensitive to ceftriaxone, levofloxacin and Macrobid -patient was given a dose of ceftriaxone in the ED. -I discussed with the patient that if she is feeling poorly, is having any palpitations, chest pressure shortness of breath or if she believes that she not care for herself at home, we can admit her. Patient states that she feels well would prefer to go home. Patient denies having any chest pain or shortness of breath. Patient has been walking around her room and states that she feels well, oxygen saturation has been steady in the 90s with no oxygen desaturations Given that the patient had a few episodes of AFib with RVR, patient has COVID, UTI, admission was offered. -patient was ambulated in her room, patient did not have any oxygen saturations below 90% -current heart rate in the 90s. Eating and drinking, patient is family at bedside, they state that the patient will not be alone, they will take care of her overnight. If anything changes he will bring her back Differential Diagnosis Differential Diagnoses: The differential diagnosis associated with the presentation includes (UTI, COVID, viral URI) Admission/Observation Consideration of admission/observation: Escalation of care including admission/observation considered (Admission was offered, patient prefers to go home) Lab Data [facility] Lab Attestation statement: I reviewed the patient's lab results. 02/05/24 20:02 02/05/24 20:02 Labs: Lab Results 02/05/24 Range/Units 20:02 WBC 9.7 (4.8-10.8) X10*3/uL RBC 4.15 L (4.20-5.50) X10*6/uL Hgb 12.8 (12.0-16.0) g/dl Hct 37.2 (37.0-47.0) % MCV 89.6 (80.0-98.0) fL MCH 30.8 (27.0-33.0) pg MCHC 34.4 (31.0-35.0) g/dl RDW 13.4 (11.0-16.0) % Plt Count 160 D (160-400) X10*3/uL MPV 10.3 (9.4-12.3) fL Immature Gran % (Auto) 0.4 (0.0-0.4) % Neut % (Auto) 89.4 H (45-73) % Lymph % (Auto) 3.3 L (20-40) % Cannon % (Auto) 6.5 (2-11) % Eos % (Auto) 0.1 (0-4) % Baso % (Auto) 0.3 (0-2) % Lymph # (Auto) 0.3 L (1.2-4.9) X10*3/uL Cannon # (Auto) 0.6 (0.1-1.2) X10*3/uL Eos # (Auto) 0.0 (0.0-0.4) X10*3/uL Baso # (Auto) 0.0 (0.0-0.2) X10*3/uL Abs Immat Gran (auto) 0.04 H (0.00-0.03) X10*3/uL Absolute Neuts (auto) 8.6 H (2.0-8.3) x10*3/uL Absolute Nucleated RBC 0.000 (0.0-0.012) X10*3/uL Nucleated RBC % (auto) 0.0 (0.0-0.2) /100WBC Sodium 132 L (135-145) mmol/L Potassium 3.4 D (3.3-5.1) mmol/L Chloride 97 (96-108) mmol/L Carbon Dioxide 26 (22-29) mmol/L Anion Gap 12 (12-20) BUN 10 (9-16) mg/dL Creatinine 0.70 (0.5-1.4) mg/dL Estim Creat Clear Calc 57.5 Estimated GFR > 60 Random Glucose 119 H (60-115) mg/dL Calcium 8.8 (8.4-10.2) mg/dL Urine Color Yellow Urine Appearance Clear Urine pH 6.0 (5.0-9.0) Ur Specific [place] 1.015 (1.005-1.025) Urine Protein Negative (Neg-Trace) mg/dL Urine Glucose (UA) Negative (Negative) mg/dL Urine Ketones 40 (Negative) mg/dL Urine Blood Small (1+) H (Negative) Urine Nitrite Negative (Negative) Ur Leukocyte Esterase Small (1+) H (Negative) Urine RBC 6-10 H (0-2) /HPF Urine WBC 6-10 H (0-5) /HPF Ur Squamous Epith Cells 3-5 (0-2) /HPF Urine Bacteria None Seen (None Seen) Hyaline Casts 0-2 (0-2) /LPF Influenza Type A (PCR) NEGATIVE (Negative) Influenza Type B (PCR) NEGATIVE (Negative) RSV RNA Qual (PCR) NEGATIVE (Negative) SARS-CoV-2 RNA (RT-PCR) POSITIVE A (Negative) Independent Interpretation I performed an independent interpretation of an: EKG (My interpretation of EKG: Sinus tachycardia, patient has left bundle branch block, QTC 457) Critical Care Time Critical Care Time Critical Care Time: Yes Total Critical Care Time: 60 Attestation: I have personally provided critical care time. Time includes review of lab data, radiology results, discussion with consultants, and monitoring for potential decompensation. Intervention performed as documented. Discharge Plan Discharge Clinical Impression: COVID, Acute UTI, Atrial fibrillation with RVR Patient Disposition: Home, Self-Care Instructions: Urinary Tract Infection in Older Adults (ED), COVID-19 (Coronavirus Disease 2019) (ED), A-fib (Atrial Fibrillation) (ED) Additional Instructions: Please follow-up with your primary care physician tomorrow. If you have any worsening or new symptoms, please return to the emergency room or call 911 Prescriptions: No Action metoprolol succinate 25 mg tablet extended release 24 hr 25 mg PO DAILY Qty: 30 5RF Rx Instructions: Stop diltiazem and take this metoprolol per Dr. Barnard's orders 10/14/2023 Eliquis 5 mg tablet 5 mg PO BID valsartan 80 mg tablet 80 mg PO DAILY Qty: 30 5RF Print Language: Bulgarian
[2024-02-05 22:00] VITALS: BP 150/73; PULSE 92; RESP 13; O2SAT 98
[2024-02-05 22:27] VITALS: BP 150/73; PULSE 95
[2024-02-05] MEDS: cefuroxime axetiL 250 MG TABLET PO (22:27)
[2024-02-05] MEDS: Metoprolol Tartrate 25 MG TABLET PO (22:27)
[2024-02-05] MEDS: Acetaminophen 325 MG TABLET 650 MG PO (22:29)
[2024-02-05 22:51] VITALS: BP 150/73; PULSE 95; RESP 12; TEMP 37.2; O2SAT 98
== END 2024-02-05 22:53 | disposition home or self-care (01) ==
PROVIDERS: Emergency Provider Emergency Medicine; PCP Internal Medicine
DX: U07.1 COVID-19 (principal); N39.0 Urinary tract infection, site not specified; I48.20 Chronic atrial fibrillation, unspecified; I44.7 Left bundle-branch block, unspecified; R00.0 Tachycardia, unspecified
CPT/HCPCS: 0241U; 36415; 71045; 80048; 81001; 85025; 87086; 93005; 99283; 99285

== ENCOUNTER → 2024-02-05 20:01 | Outpatient (BNV) | payer MEDICARE, OTHER, SELFPAY | PROVIDERS: Emergency Provider Emergency Medicine; PCP Internal Medicine; Visit Provider Internal Medicine Cardiovascular Disease | DX: R42 Dizziness and giddiness (principal) | CPT/HCPCS: 93010 ==

== ENCOUNTER → 2024-02-11 10:44 | Outpatient (REF) | payer MEDICARE, OTHER, SELFPAY ==
--- NOTE | 2024-02-11 10:50 | ECG_ITS ---
Test Reason : AFIB Blood Pressure : / mmHG Vent. Rate : 069 BPM Atrial Rate : 069 BPM P-R Int : 154 ms QRS Dur : 130 ms QT Int : 426 ms P-R-T Axes : 063 -45 069 degrees QTc Int : 456 ms Sinus rhythm with occasional Premature ventricular complexes Left axis deviation Left bundle branch block Abnormal ECG When compared with ECG of 05-FEB-2024 20:01, Vent. rate has decreased BY 41 BPM T wave inversion no longer evident in Lateral leads Referred By: Checo Lin Electronically Signed By:JEFFRY SRIVASTAVA MD
== END ==
LOC: HO.CARD 10:44
PROVIDERS: PCP Internal Medicine; Visit Provider Internal Medicine
DX: I48.91 Unspecified atrial fibrillation (principal)
CPT/HCPCS: 93005

== ENCOUNTER → 2024-02-11 10:50 | Outpatient (BNV) | payer MEDICARE, OTHER, SELFPAY | PROVIDERS: PCP Internal Medicine; Visit Provider Internal Medicine Cardiovascular Disease | DX: I48.19 Other persistent atrial fibrillation (principal) | CPT/HCPCS: 93010 ==

== ENCOUNTER 2024-03-09 07:53 | Outpatient (REF) | payer MEDICARE, OTHER, SELFPAY ==
--- NOTE | ~2024-03-09 | XR_ITS ---
EXAMINATION: XR HIP, LEFT CLINICAL INFORMATION: Pain in the left hip. COMPARISON: None available. TECHNIQUE: Two views of the left hip. FINDINGS: No acute fracture or subluxation. 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 SI joints are symmetric. Pubic symphysis is maintained. A few pelvic phleboliths are seen. No significant soft tissue abnormality. XR/XR hip LT w PEL1V IMPRESSION: No acute fracture or subluxation. 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 Electronically signed by: Renee Hart MD 03/09/2024 08:55 AM EDT
== END 2024-03-09 07:54 | disposition home or self-care (01) ==
LOC: HO.XRAY 07:53
PROVIDERS: PCP Internal Medicine; Visit Provider Physician Assistant
DX: M25.552 Pain in left hip (principal)
CPT/HCPCS: 73502

== ENCOUNTER 2024-03-24 11:37 | Outpatient (REF) | payer MEDICARE, OTHER, SELFPAY ==
--- NOTE | ~2024-03-24 | XR_ITS ---
EXAMINATION: XR THORACIC SPINE. XR LUMBAR SPINE. CLINICAL INFORMATION: Back pain COMPARISON: Lumbar radiographs 09/14/2019 TECHNIQUE: AP and lateral radiographs of the thoracic spine. AP and lateral radiographs of the lumbar spine. FINDINGS: Thoracic spine: Mild to moderate multilevel degenerative disc disease. No fracture. Normal alignment and thoracic kyphosis. 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 Severe L5-S1 degenerative disc disease. Mild degenerative disc disease and slight anterolisthesis at L4-L5. Advanced facet arthrosis at L4-L5 and L5-S1. No fracture. No significant change. Extensive vascular calcifications. XR/XR lumbar spine 2-3V IMPRESSION: THORACIC SPINE: Mild to moderate multilevel degenerative disc disease. No fracture. 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 Severe L5-S1 degenerative disc disease. Mild degenerative disc disease and slight anterolisthesis at L4-L5. Electronically signed by: Logan iMranda MD 03/24/2024 03:21 PM EDT
--- NOTE | ~2024-03-24 | XR_ITS ---
EXAMINATION: XR THORACIC SPINE. XR LUMBAR SPINE. CLINICAL INFORMATION: Back pain COMPARISON: Lumbar radiographs 09/14/2019 TECHNIQUE: AP and lateral radiographs of the thoracic spine. AP and lateral radiographs of the lumbar spine. FINDINGS: Thoracic spine: Mild to moderate multilevel degenerative disc disease. No fracture. Normal alignment and thoracic kyphosis. 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 Severe L5-S1 degenerative disc disease. Mild degenerative disc disease and slight anterolisthesis at L4-L5. Advanced facet arthrosis at L4-L5 and L5-S1. No fracture. No significant change. Extensive vascular calcifications. XR/XR thoracic spine 3V IMPRESSION: THORACIC SPINE: Mild to moderate multilevel degenerative disc disease. No fracture. 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 Severe L5-S1 degenerative disc disease. Mild degenerative disc disease and slight anterolisthesis at L4-L5. Electronically signed by: Logan Miranda MD 03/24/2024 03:21 PM EDT
== END 2024-03-24 11:38 | disposition home or self-care (01) ==
LOC: HO.XRAY 11:37
PROVIDERS: PCP Internal Medicine; Visit Provider Internal Medicine
DX: M47.9 Spondylosis, unspecified (principal)
CPT/HCPCS: 72072; 72100

== ENCOUNTER 2024-04-04 08:10 | Outpatient (REF) | payer MEDICARE, OTHER, SELFPAY ==
--- NOTE | ~2024-04-04 | MM_ITS ---
EXAMINATION: MM SCREENING DIGITAL BREAST TOMOSYNTHESIS, BILATERAL CLINICAL INFORMATION: Screening. Asymptomatic. COMPARISON: Mammography: Comparison is made with available priors TECHNIQUE: Digital breast mammography with tomosynthesis is performed in both the craniocaudal and mediolateral oblique views along with computer-aided detection (CAD). FINDINGS: There are scattered areas of fibroglandular density (ACR BI-RADS breast composition Category b). There are no significant masses, abnormal calcifications, or other abnormalities. MM/MM tomosynthesis screening BI IMPRESSION: No mammographic evidence of malignancy. ASSESSMENT: BI-RADS BI-RADS 1 - Negative RECOMMENDATION: Routine annual mammography screening. 1 year F/U This examination should not preclude the clinical evaluation of a suspicious palpable abnormality. This patient's information was entered into a reminder system with a target due date for their next mammogram. Electronically signed by: Laura Forte DO 04/13/2024 06:36 PM EDT
== END 2024-04-04 08:11 | disposition home or self-care (01) ==
LOC: HO.MAMMO 08:10
PROVIDERS: PCP Internal Medicine; Visit Provider Internal Medicine
DX: Z12.31 Encounter for screening mammogram for malignant neoplasm of breast (principal)
CPT/HCPCS: 77063; 77067

== ENCOUNTER → 2024-04-04 08:30 | Outpatient (BNV) | payer MEDICARE, OTHER, SELFPAY | PROVIDERS: PCP Internal Medicine; Visit Provider Internal Medicine | DX: Z12.31 Encounter for screening mammogram for malignant neoplasm of breast (principal) | CPT/HCPCS: 77063; 77067 ==

== ENCOUNTER 2024-05-18 10:01 | Outpatient (REF) | payer MEDICARE, OTHER, SELFPAY ==
[2024-05-18 11:18] LABS: Hematocrit 43.3 % (37.0-47.0); Hemoglobin 14.2 g/dl (12.0-16.0); Mean Corpuscular HGB Conc 32.8 g/dl (31.0-35.0); Mean Corpuscular Hemoglobin 30.7 pg (27.0-33.0); Mean Corpuscular Volume 93.5 fL (80.0-98.0); Mean Platelet Volume 9.8 fL (9.4-12.3); Platelet Count 236 X10*3/uL (160-400); Red Blood Count 4.63 X10*6/uL (4.20-5.50); Red Cell Distribution Width 13.2 % (11.0-16.0); White Blood Count 7.3 X10*3/uL (4.8-10.8)
[2024-05-18 11:50] LABS: Anion Gap 9 (12-20); Blood Urea Nitrogen 16 mg/dL (9-16); Calcium 8.9 mg/dL (8.4-10.2); Carbon Dioxide 30 mmol/L (22-29); Chloride 98 mmol/L (96-108); Estimated Glomerular Filt Rate > 60; Glucose Random 101 mg/dL (60-115); Potassium 4.3 mmol/L (3.3-5.1); Sodium 133 mmol/L (135-145)
== END 2024-05-18 10:02 | disposition home or self-care (01) ==
LOC: HO.LAB 10:01
PROVIDERS: PCP Internal Medicine; Visit Provider Internal Medicine Cardiovascular Disease
DX: I48.0 Paroxysmal atrial fibrillation (principal); I42.9 Cardiomyopathy, unspecified; Z95.2 Presence of prosthetic heart valve
CPT/HCPCS: 36415; 80048; 85027; 99212

== ENCOUNTER 2024-05-18 10:01 | Outpatient (AMB) | payer MEDICARE, OTHER, SELFPAY ==
[2024-05-18 10:21] VITALS: BP 124/60; PULSE 83; BMI 25.2
--- NOTE | 2024-05-18 10:21 | A.OFFVIS_ITS ---
Vital Signs 05/18/24 10:21 Height 5 ft 4 in Weight 146 lb 13.246 oz BMI 25.2 BP 124/60 Blood Pressure Location Lt brachial Position Sitting Pulse 83 Pulse Source Pulse Oximeter Intake Visit Reasons: 6 mth f/up Intake Note: 6 month f/u Executive [employer] Of [employer] Required: No Accompanied by: Self / Same As Patient Allergies No Known Drug Allergies Allergy (Verified 05/18/24 10:24) none Medication List - Last Reconciled 05/18/24 by Gagan Barnard MD acetaminophen 500 mg PO Q6H PRN apixaban (Eliquis) 5 mg PO BID metoprolol succinate ER 25 mg PO DAILY valsartan 80 mg PO DAILY 90 days HPI Comments Details: Michelle comes for follow-up. She has been doing well from cardiac perspective. Denies any prolonged palpitation irregular heartbeat. Her main concern currently which limits activity level is back pain. However with her current activity level she denies any exertional chest pain or shortness of breath. She denies any orthopnea, PND, leg edema. No lightheadedness, syncope. No bleeding issues or neurologic events. Takes all her medications without issues. Complains of fatigue [facility] Medical History Paroxysmal atrial fibrillation HTN (hypertension) Surgical History History of appendectomy History of hysterectomy S/P TAVR (transcatheter aortic valve replacement) Family History Mother No problems noted. Father Bladder cancer Daughter Autoimmune disease Social History Household Members: Spouse Housing: House Do you presently have visiting nurse or other home services: No Alcohol intake: current Alcohol intake frequency: holidays/special occasions only Alcohol type: wine and hard liquor Comment: pt refuses high fall prevention Patient Tobacco Use Status: Never used Tobacco Years Smoked: 10 +/- Substance Use Type: Marijuana service: No Current occupational status: retired Review of Systems Const Denies chills, Denies fatigue, Denies fever(s), Denies weight gain and Denies weight loss ENT Denies dizziness Card Denies chest pain, Denies leg edema, Denies lightheadedness, Denies palpitations, Denies dyspnea on exertion, Denies orthopnea and Denies other Resp Denies cough and Denies dyspnea on exertion GI Denies hematochezia and Denies change in stool character Musc Denies abnormal gait, Denies muscle weakness, Denies numbness, Denies radiating pain into limb and Denies tingling Neuro Denies Abnormal speech present, Denies abnormal gait, Denies dizziness, Denies numbness and Denies tingling Endo Denies fatigue and Denies palpitations Physical Exam Vital Signs: Last Vital Signs Pulse 83 05/18/24 10:21 BP 124/60 05/18/24 10:21 BMI result Body Mass Index 25.2 Const General: cooperative, comfortable, no acute distress, well developed, alert, awake, Physically active and well groomed Nutritional Appearance: average body habitus and well nourished Orientation/consciousness: patient oriented x3 Limitations: no limitations Neck Neck: Yes trachea midline, Yes supple and Yes no JVD Chest Chest palpation & inspection: normal inspection of the chest Resp Effort & Inspection: normal respiratory effort Auscultation: clear to auscultation bilaterally Cardio Jugular venous distension: no JVD Palpation: normal PMI Rate: regular rate Rhythm: abnormal rhythm with ectopic beats Heart sounds: S1 normal heart sound present, S2 normal heart sound present and Murmur heart sound present systolic early GI Auscultation: normal bowel sounds Skin General skin exam: no rashes or lesions noted Neuro General: patient oriented x3 and no focal motor deficits Speech: No Abnormal speech present Extrem General: Yes no clubbing, cyanosis or edema Assessment & Plan Assessment & Plan (1) Cardiomyopathy: Code(s): I42.9 - Cardiomyopathy, unspecified Category: Medical Plan: Mild cardiomyopathy without any overt signs of congestive heart failure. No symptoms suggestive of progressive cardiomyopathy process. Continue neurohormonal modulation with metoprolol and valsartan. Signs and symptoms of heart failure were discussed advised to call me with any new symptoms. No additional therapy is recommended. Continue rhythm control approach. (2) S/P TAVR (transcatheter aortic valve replacement): Comment: 26 mm [employer], 12/09/2020 Code(s): Z95.2 - Presence of prosthetic heart valve Category: Surgical Plan: Status post transcatheter aortic valve replacement working well. Continue full oral anticoagulation as prescribed see below. Continue SBE prophylaxis as per ACC/[facility] guidelines. Continue risk factor modification. Blood pressure is currently well optimized. Goal LDL less than 100 mg/dL. (3) Paroxysmal atrial fibrillation: Code(s): I48.0 - Paroxysmal atrial fibrillation Category: Medical Plan: Paroxysmal atrial fibrillation has remained suppressed. Has done well with rhythm control approach will continue pursue rhythm control approach. No indication for antiarrhythmic drug therapy. Continue full oral anticoagulation, currently on Eliquis 5 mg b.i.d.. Semi annual renal function test should be pursued. Avoidance of stimulants was discussed. Follow up in the clinic in 6 months time after an echocardiogram. Thank you for allowing me to partake in her care Orders: Orders Basic Metabolic Panel Today I48.0 - Paroxysmal atrial fibrillation Complete Blood Count no Diff Today I48.0 - Paroxysmal atrial fibrillation CA echo transthoracic complete 6 Months Z95.2 - Presence of prosthetic heart valve Coding Level of Care Code Est Pt Level 4 (66805) Complex EM visit Add On G2211 Diagnoses Cardiomyopathy I42.9 S/P TAVR (transcatheter aortic valve replacement) Z95.2 Paroxysmal atrial fibrillation I48.0
== END 2024-05-18 10:35 | disposition home or self-care (01) ==
PROVIDERS: PCP Internal Medicine; Visit Provider Internal Medicine Cardiovascular Disease
DX: I42.9 Cardiomyopathy, unspecified (principal); Z95.2 Presence of prosthetic heart valve; I48.0 Paroxysmal atrial fibrillation
CPT/HCPCS: 99214; G2211

== ENCOUNTER → 2024-11-07 07:50 | Outpatient (REF) | payer MEDICARE, OTHER, SELFPAY ==
--- OUTSIDE RECORDS SUMMARY | 2024-11-07 07:53 | XMS_ITS | Data Portability ---
Author Organization [place] - [facility], Allergy Address [address] [place] [id number] Care Team Providers Care Junk Dealer Name Role Phone PRANAV CANO Primary Care Provider Assessment No assessment recorded. Plan of Treatment Reminders Order Date Submit Date Provider Last Modified By Organization Details Last Modified Time Details Appointments None record ed. Lab None record ed. Referral None record ed. Procedures None record ed. Surgeries None record ed. Imaging None record ed. Medication Orders None record ed. Patient TargetsNo targets recorded. Patient InstructionsNo instructions recorded. Reason for Referral None Reported. Results Created Date Observation Date Name Description Value Unit Range Abnormal Flag Note LastModifiedBy Organization Detail LastModifiedTime 08/03/19 25 04/26/2024 audio gram No observ ation record ed. [email or web address] [facility] [address], [address], 08/03/2024 14:54:39 08/18/19 25 05/01/2024 audio gram No observ ation record ed. [email or web address] Not Available 2024 09:59:28 Result Notes None recorded. Problems Name Problem SNOMED Code Status Onset Date Resolution Date Notes Provider Name and Address Organization Details Recorded Time Mixed conductive and sensorineural hearing loss, bilateral 271342654 Active 2024 MARIA INES CASTANEDA MD [address] [place] [address], [phone], [facility] - [facility] 15:41:32 Problem Notes None recorded. Procedures Surgical History Date Name Laterality Status Provider Name and Address Organization Details Recorded Time hysterectomy completed MARIA INES CASTANEDA MD [address] [place] [address], [phone], [facility] - [facility] [place] 08/08/2024 08:58:33 replacement of aortic valve completed MARIA INES CASTANEDA MD [address] [facility] [address], [place], [phone], [facility] - [facility] 08/08/2024 08:58:40 Imaging Results Imaging Date Name Status LastModified by Organiz ation Details LastModified Time 04/26/2024 audiogram completed [id number] [facility] [address] [facility], [place], [address], 08/03/2024 14:54:39 05/01/2024 audiogram completed [place] [address] Information no t available 08/18/2024 09:59:28 Procedure Notes None recorded. Medical Equipment None Reported. Allergies No known drug allergies Medications Name Sig Start Date Stop Date Status Note LastModified by Organization Details LastModified Time prednisone 10 mg tablet PLEASE SEE ATTACHED FOR DETAILED DIRECTION S 08/03 completed Not Available Not Available Not Available cefuroxime axetil 250 mg tablet TAKE 1 TAB ORALLY 2 TIMES A DAY 08/03 completed Not Available Not Available Not Available valsartan 80 mg tablet TAKE 1 TABLET BY MOUTH EVERY DAY active Not Available Not Available No t Available ciprofloxac in 250 mg tablet TAKE 1 TABLET BY MOUTH EVERY 12 HOURS FOR 7 DAYS 08/03 completed Not Available Not Available Not Available amoxicillin 500 mg tablet TAKE FOUR TABLETS BY MOUTH ONE HOUR PRIOR TO DENTAL PROCEDURE 09/21 completed Not Available Not Available Not Available baclofen 10 mg tablet TAKE 1 TABLET BY MOUTH THREE TIMES A DAY NEEDED FOR 14 DAYS 08/03 completed Not Available Not Available Not Available metoprolol succinate ER 25 mg tablet,exte nded release 24 hr TAKE 1 TABLET BY MOUTH EVERY DAY active Not Available Not Available No t Available neomycin-po lymyxin-hyd rocort 3.5 mg-10,000 unit/mL-1 % ear drops,susp INSTILL 4 DROPS INTO AFFECTED EAR(S) 3 TIMES A DAY 08/03 completed Not Available Not Available Not Available Eliquis 5 mg tablet TAKE 1 TABLET BY MOUTH TWICE A DAY active Not Available Not Available No t Available Tiadylt ER 240 mg capsule,ext ended release TAKE 1 CAPSULE BY MOUTH EVERY DAY 08/03 completed Not Available Not Available Not Available Vitals Date Recorded Body height Body mass index (BMI) Body weight Provider Name and Address Organization Details Last Updated DateTime 09/21/2024 162.56 cm 25.7 kg/m2 27704.86 g Ailyn Todd [facility] 09/21/2024 10:31:27 Date Recorded Body height Body mass index (BMI) Body weight Provider Name and Address Organization Details Last Updated DateTime 08/03/2024 162.56 cm 25.6 kg/m2 39161.26 g Ailyn Todd [facility] 08/03/2024 14:25:05 Social History None recorded. Functional Status None recorded. Mental Status None recorded. Family History Nothing Reported. Medical History Condition Response Hypertension Y Gynecological HistoryNo gynecological history recorded. 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 [id number] MARIA INES CASTANEDA MD [facility] on [address] [place] [id number] 09/21/2024 10:17:43 09/21/2024 10:53:37 Mixed conductive and sensorineural hearing loss, bilateral 478161240 H90.6 The squamous casts were completely removed, revealing well aerated middle ear spaces. She felt that her sense of blockage resolved completely and her hearing had returned to baseline. She declines any further audiometri c testing. She may follow-up as needed. Health Concerns Section Related Observation LastModified by Organization Detai ls LastModified Time None Recorded Concern Status LastModified by Organization Details LastModified Time None Recorded Advance Directives Directive None Recorded Payers Encounter Date Sequence Insurance Name Policy Number Policy Mackenzie Covered Member ID Mackenzie Member ID Guarantor Name 08/03/2024 2 [facility] Michelle Lugoworth [id number] Michelle Servinckworth 08/03/2024 1 [place] [facility] Michelle Laura Joelle [id number] Michelle Sanchez Joelle 09/21/2024 2 [facility] Michelle Sanchez Joelle [id number] Michelle Sanchez Joelle 09/21/2024 1 [place] [facility] Michelle Sanchez Joelle [id number] Michelle Lugoworth Notes Date Note Type Note Provider Name and Address Organization Details Recorded Time 08/03/2024 text/html 84-year-old samina carmona presents today for evaluation of hearing loss. She has had evaluation at [facility] in April and prior to that in August. She has had symptoms for about a year with bilateral ear pressure and fullness and occasional pulsing in the right ear. She has been on several courses of antibiotic drops, prednisone which have not helped.Most recent testing in April showing type B temps, mild mixed loss bilaterally with 15 to 30 dB air-bone gap noted. MARIA INES CASTANEDA MD [address] [place] [address], [phone], [facility] 08/08/2024 09:01:38 09/21/2024 text/html 84-year-old samina carmona here today for reassessment of ear blockage. She has been using oil drops since her last visit. She did stop them but has used Debrox in the past week. MARIA INES CASTANEDA MD [address] [place] [address],[address], [phone], [facility] 09/21/2024 10:56:05 OBGyn Episode No OBEpisode recorded.
--- OUTSIDE RECORDS SUMMARY | 2024-11-07 07:53 | XMS_ITS | Clinical Summary ---
Author Organization [facility] Facility Address [address] [address] Care Team Providers Care Cps Team Lead Name Role Phone Checo Lin Primary Care Provider [phone] Social History Tobacco Use Types Packs/Day Years Used Date Smoking Tobacco: Never Assessed Comments Unknown Sex and Gender Information Value Date Recorded Sex Assigned at Not on file Legal Sex Female 8:52 AM EDT Gender Identity Not on file Sexual Orientation Not on file Plan of Treatment Health Maintenance Due Date Last Done Comments Influenza Vaccine (Season Ended) 2025 06/30/2021, 05/05/2016 Pneumococcal Vaccine: 50+ Years Completed 07/16/2016, 2015 Hepatitis B Vaccine Aged Out No longe r eligible based on patient's age to complete this topic Insurance Medicare [facility] Medicare [facility] Care Teams Cps Team Lead Relationship Specialty Start Date End Date Checo Lin DO [address] [place] [id number] PCP - General Internal Medicine 09/30/22
--- OUTSIDE RECORDS SUMMARY | 2024-11-07 07:53 | XMS_ITS | Data Portability ---
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 REVIEW OF PRIOR EXTERNAL NOTES/RESULTS, ORDERING OF TEST(S) CATEGORY 2. 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[employer]) MDM MODERATE MUST MEET 2 OUT OF 3 ELEMENTS: PROBLEMS, DATA OR RISK ELEMENT 1: PROBLEMS ADDRESSED 1 OR MORE CHRONIC ILLNESS WITH EXACERBATION OR 2 OR MORE STABLE CHRONIC ILLNESSES OR 1 UNDIAGNOSED NEW PROBLEM OR 1 ACUTE ILLNESS W/SYMPTOMS OR 1 ACUTE COMPLICATED INJURY ELEMENT 2: DATA MUST MEET 1 OF 3 CATEGORIES CATEGORY 1: REVIEW OF PRIOR EXTERNAL NOTES, REVIEW OF RESULTS, ORDERING OF EACH TEST, ASSESSMENT REQUIRING INDEPENDENT HISTORIAN OR CATEGORY 2: INDEPENDENT INTERPRETATION OF TESTS BY ANOTHER PHYSICIAN OR SPECIALIST OR CATEGORY 3: DISCUSSION OF MGT OR TEST INTERPRETATION W/EXTERNAL PHYSICIAN OR SPECIALIST ELEMENT 3: RISK RISK OF COMPLICATIONS AND/OR MORBIDITY OR MORTALITY OF PATIENT MANAGEMENT PROVIDER MUST THOROUGHLY DOCUMENT EACH ELEMENT THAT IS COVERED Not available 03/22/2024 10:39:33 03/28/2024 03/28/2024 The patient is participating in this appointment via telemedicine communication with a phone call/video calling service ([employer]) The patient consents to use of these platforms in place of an in-person appointment due to either sick symptoms the patient is presenting with or current office closure due to COVID exposure in order to keep our office staff and patients safe [email or web address] Not available 03/28/2024 15:21:48 Plan of Treatment Reminders Order Date Submit Date Provider Last Modified By Organization Details Last Modified Time Details Appointments None lauren dDanilo Lab TSH + free T4, serum 2023 024 [facility], [address] [place] [address], [id number], 4 14:52:41 iron + TIBC + ferriti n, serum 2023 024 [facility], [address] [place] [address], [address], 4 14:52:41 vitamin B12 + folate, serum or blood 2023 024 [facility], [address] [place] [address], [address], 4 14:52:41 vitamin D, 25-hydr oxy, total, serum 2023 024 [facility], [address] [place] [address], [address], 4 14:52:41 hemoglo bin A1c, QN, blood 2023 024 [facility], [address] [place] [address], [address], 4 14:52:41 CBC w/ auto diff 2023 024 [facility], [address] [place] [address], [address], 4 14:52:40 CMP, serum or plasma 2023 024 [facility], [address] [place], [address], 4 11:26:41 Referral urogyne cologis t referra l [address] [facility] Urogynecologist Scheduling Dept, [address] [place] [address], [address], 5 13:51:05 orthope dic spine surgeon referra l 2023 024 [facility], [address] [place], [address], 4 08:52:58 hearing screeni ng referra l 2023 024 [facility], [address] [facility], [place] [address], [place], [address], 4 09:02:56 Procedures None recorde d. Surgeries None recorde d. Imaging XR, lumbar spine, 2 view 2023 024 [facility], [place], [address], 4 15:24:57 XR, thoraci c spine, 2 view 2023 024 [facility], [place], [address], 4 15:37:34 Medication Orders toltero dine ER 2 mg capsule ,extend ed release 24 hr 2024 025 [facility]2025, [address] [place], [address], 5 10:46:37 prednis one 10 mg tablet 2023 024 [facility]2024, [address] [place], [address], 4 10:20:36 neomyci n-polym yxin-hy drocort 3.5 mg-10,0 00 unit/mL -1 % ear drops,s alf 2023 024 [facility]2024, [address] [place], [address], 4 10:20:42 ciprofl oxacin 250 mg tablet 2023 024 [facility]2024, [address] [place], [address], 4 10:20:19 Patient TargetsNo targets recorded. Patient Instructions Encounter Date Encounter Id Patient Instructions Last Modified By Organization Details Last Modified Time 03/22/2024 [id number] hearing loss: care instructions Not available 03/22/2024 10:38:51 Reason for Referral Hearing Screening Referral f or Hearing loss Referring Physician: Checo Lin, Internal Medicine, Encounter Date: 03/22/2024 Orthopedic Spine Surgeon Ref erral for Degeneration of lumbar intervertebral disc severe degenerative disc disease in the lumbar spine, mild mod in the thoracic Referring Physician: Lanny Arana, Internal Medicine, Encounter Date: 03/28/2024 Urogynecologist Referral for Overactive urinary bladder ongoing issues with overactive bladder and urinary incontinence Referring Physician: Lanny Arana, Internal Medicine, Encounter Date: 07/21/2024 Results Created Date Observation Date Name Description Value Unit Range Abnormal Flag Note LastModifiedBy Organization Detail LastModifiedTime 02/05/2002/05/2024 XR, chest , 2 view No observ ation record ed. [facility] (Medical Records) [address] [place], [address], 02/06/2024 16:04:09 02/12/2002/11/2024 elect rocar diogr am No observ ation record ed. [email or web address] [place] [address] (Medical Records) [address] [place], [address], 02/13/2024 22:14:50 03/09/20 24 03/09/2024 XR, hip + pelvi s, unila teral , 2 or 3 view No observ ation record ed. [facility] (Medical Records) [address] [place] [address], [address], 03/10/2024 08:49:51 03/24/20 24 03/24/2024 XR, lumba r spine , 2 view No observ ation record ed. [address] (Medical Records) [address] [place], [address], 03/27/2024 15:36:40 03/24/20 24 03/24/2024 XR, thora cic spine , 2 view No observ ation record ed. [address], [address], 03/27/2024 15:36:41 04/13/20 24 04/04/2024 MAMMO , scree paula, digit al, bilat eral No observ ation record ed. [facility] [address] [place], [address], 04/14/2024 08:35:03 Result Notes None recorded. Problems Name Problem SNOMED Code Status Onset Date Resolution Date Notes Provider Name and Address Organization Details Recorded Time Celluliti s of lower leg 137227096 Active 2020 Not Available [facility] 4 19:53:13 Dizziness 338718376 Active 2021 Not Available [facility] 4 19:53:13 Chronic cough 20624561 Active 2021 Not Available [facility] 4 19:53:13 Nocturia 315503532 Active 2021 Not Available [facility] 4 19:53:12 COVID-19 933684318 Active 2021 Not Available [facility] 4 19:53:13 Hypokalem ia 75952207 Active 2021 Not Available [facility] 4 19:53:13 Interstit ial lung disease 534739087 Active 2021 Not Available [facility] 4 19:53:12 Osteoarth ritis of right knee joint 071597353198 100 Active 2022 Not Available [facility] 4 19:53:13 Hyponatre dipak 79947573 Active 2022 Not Available [facility] 4 19:53:13 Acute bronchiti s 46456082 Active 2022 Not Available [facility] 4 19:53:12 Near syncope 373991457 Active 2022 Not Available [facility] 4 19:53:13 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 42317822 Active 2022 Not Available [facility] 4 19:53:13 Acute sinusitis 76734265 Active 2022 Not Available [facility] 4 19:53:12 Bleeding from nose 396137613 Active 2022 Not Available [facility] 4 19:53:12 Serous otitis media 17199746 Active 2022 Not Available [facility] 4 19:53:13 Blepharit is 37261932 Active 2022 Not Available [facility] 4 19:53:13 Chronic blepharit is 19100973 Active 2022 Not Available [facility] 4 19:53:13 Chronic blepharit is 60893947 Active 2022 Not Available [facility] 4 19:53:13 Thoracic back pain 592564780 Active 2022 Not Available [facility] 4 19:53:12 Low back pain 205266478 Active 2022 Not Available [facility] 4 19:53:12 Atrial fibrillat ion 83876964 Active 2023 Not Available [facility] 4 19:53:13 Acute otitis media 5704310 Active 2023 Not Available [facility] 4 19:53:13 Acute otitis media 7836259 Active 2023 Not Available [facility] 4 19:53:13 Serous otitis media 13598305 Active 2023 Not Available [facility] 4 19:53:13 Bilateral earache 488015819 Active [address]Z [address] [place] [address], [address], [facility] 4 11:37:38 Fatigue 46194828 Active 2023 SEMAJ FRITZ [address] [place] [address], [address], [facility] 4 14:42:10 Pain of left hip joint 370354060466 100 Active 2023 SEMAJ FRITZ [address] [place] [address], [address], [facility] 4 15:24:30 Osteoarth ritis of hip 588922097 Active 2023 SEMAJ FRITZ [address] [place], [address], [facility] 4 08:50:18 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 360854294 Active 2023 Checo Lin DO [address] [place] [address], [address], [facility] 4 10:34:13 Hearing loss 27787029 Active 2023 Checo Lin DO [address] [place] [address], [address], [facility] 4 10:38:21 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 133735762 Active 2023 Checo Lin DO [address] [place] [address], [address], [facility] 4 10:43:36 Paroxysma l atrial fibrillat ion 372430734 Active 2023 Checo Lin, [address] [place] [address], [address], [facility] 4 10:47:50 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 52052234 Active 2023 SEMAJ FRITZ [address] [place] [address], [address], [facility] 4 15:22:14 Sensorine ural hearing loss 34736415 Active 2023 Checo Lin, [address] [place] [address], [address], [facility] 4 21:50:09 Overactiv e urinary bladder 029022294 Active 2024 SEMAJ FRITZ [address] [place] [address], [address], [facility] 5 10:43:27 Aortic valve stenosis with insuffici ency 597628421 Active 2017 Dr. blanche kirby, echo 018 Not Available [facility] 4 19:53:12 Essential hypertens ion 58301159 Active 2017 Not Available [facility] 4 19:53:13 Varicose veins of lower extremity 11013865 Active 2017 Not Available [facility] 4 19:53:13 Hypothyro idism 69298337 Active 2017 Not Available [facility] 4 19:53:13 Problem Notes None recorded. Procedures Surgical History Date Name Laterality Status Provider Name and Address Organization Details Recorded Time 024 Corticosteroid Injection completed Checo Lin DO [address] [place] [address], [address], [facility] 11/10/2023 09:02:09 023 Corticosteroid Injection completed Checo Lin, DO [address] [place], [address], [facility] 04/27/2023 11:06:12 023 Corticosteroid Injection completed Checo Lin, DO [address] [place], [address], [facility] 08/19/2022 11:51:04 023 Corticosteroid Injection completed Checo Lin, DO [address] [place], [address], [facility] 08/11/2022 15:17:29 021 WOUND CARE completed SEMAJ FRITZ [address] [place] [address], [address], [facility] 05/20/2021 12:36:30 021 WOUND CARE completed SEMAJ FRITZ [address] [place] [address], [address], [facility] 05/14/2021 11:43:29 021 WOUND CARE completed SEMAJ FRITZ [address] [place], [address], [facility] 05/09/2021 11:14:19 021 WOUND CARE completed SEMAJ FRITZ [address] [place] [address], [address], [facility] 05/05/2021 11:33:03 021 WOUND CARE completed SEMAJ FRITZ [address] [place] [address], [address], [facility] 05/02/2021 10:51:30 021 WOUND CARE completed SEMAJ FRITZ [address] [place] [address], [address], [facility] 04/28/2021 10:18:13 021 Corticosteroid Injection completed Checo Lin DO [address] [place] [address], [address], [facility] 01/17/2021 11:10:46 021 Corticosteroid Injection completed Checo Lin DO [address] [place], [address], [facility] 11/20/2020 12:00:12 017 Most Recent Mammogram completed Rhoda Villa NP, S [address] [place], [address], [facility] 10/27/2017 15:05:38 980 Total Hysterectomy completed Rhoda Villa NP, S [address] [place] [address], [address], [facility] Internal [facility] 10/27/2017 15:06:10 Appendectomy completed [facility] Internal [facility] 12/21/2017 13:53:51 Tonsillectomy completed [facility] 12/21/2017 13:54:02 Imaging Results Imaging Date Name Status LastModified by Organization Details LastModified Time 02/05/2024 XR, chest, 2 view completed [address] (Medical Records) [address] [place], [address], 02/06/2024 16:04:09 02/11/2024 electrocardiogram completed [address] (Medical Records) [address] [place], [address], 02/13/2024 22:14:50 03/09/2024 XR, hip + pelvis, unilateral, 2 or 3 view completed [email or web address] [facility] (Medical Records) [address] [place], [address], 03/10/2024 08:49:51 03/24/2024 XR, lumbar spine, 2 view completed [address] (Medical Records) [address] [place], [address], 03/27/2024 15:36:40 03/24/2024 XR, thoracic spine, 2 view completed [facility], [place], [address], 03/27/2024 15:36:41 04/04/2024 MAMMO, screening, digital, bilateral completed [email or web address] [facility] [address] [place], [address], 04/14/2024 08:35:03 Procedure Notes None recorded. Medical Equipment None Reported. Allergies Allergen ID Allergen Name Allergen Category Reaction Reaction Severity Criticality Documentation Date Start Date Code Code System Note Provider Name and Address Organization Details Recorded Time 1083 lisinopri l medicatio n cough Not available Not available 10/29/2017 06267 RxNorm Rhoda Villa NP, S [address] [place], [address], [facility] 8 09:21:40 5038 tizanidin e medicatio n dizziness moderate Not available 05/14/2021 29766 RxNorm SEMAJ FRITZ [address] [place], [address], [facility] 11:40:50 Medications Name Sig Start Date Stop Date Status Note LastModified by Organization Details LastModified Time tolterodin e ER 2 mg capsule,ex tended release 24 hr active Not Available Not Available Not Available amoxicilli n 500 mg capsule TAKE 1 CAPSULE BY MOIUTH EVERY 8 HOURS UNTIL GONE 04/17 completed Not Available Not Available Not Available prednisone 10 mg tablet PLEASE SEE ATTACHED FOR DETAILED DIRECTION S 03/22 completed Not Available Not Available Not Available doxycyclin e hyclate 100 mg capsule TAKE 1 CAPSULE BY MOUTH TWICE DAILY FOR 3 DAYS 05/14 completed Not Available Not Available Not Available cefuroxime axetil 250 mg tablet TAKE 1 TAB ORALLY 2 TIMES A DAY 03/22 completed Not Available Not Available Not Available triamcinol one acetonide 0.5 % topical cream APPLY TOPICALLY TO THE AFFECTED AREA THREE TIMES DAILY 04/17 completed Not Available Not Available Not Available azithromyc in 250 mg tablet TAKE 2 TABLETS BY MOUTH TODAY, THEN TAKE 1 TABLET DAILY FOR 4 DAYS 10/20 completed Not Available Not Available Not Available tizanidine 4 mg tablet TAKE 1 TABLET BY MOUTH EVERY 6 HOURS FOR 20 DAYS NEEDED 05/14 completed Not Available Not Available Not Available metoprolol succinate ER 50 mg tablet,ext ended release 24 hr TAKE 1 TABLET BY MOUTH EVERY DAY 10/09 completed Not Available Not Available Not Available diltiazem CD 240 mg capsule,ex tended release 24 hr TAKE 1 CAPSULE BY MOUTH EVERY DAY 12/21 completed Not Available Not Available Not Available prednisone 20 mg tablet TAKE 2 TABLETS BY MOUTH EVERY DAY 10/09 completed Not Available Not Available Not Available metoprolol succinate ER 100 mg tablet,ext ended release 24 hr PLEASE SEE ATTACHED FOR DETAILED DIRECTION S 04/28 completed Not Available Not Available Not Available valsartan 80 mg tablet TAKE 1 TABLET BY MOUTH EVERY DAY active Not Available Not Available No t Available meclizine 12.5 mg tablet TAKE 1 TABLET BY MOUTH THREE TIMES DAILY NEEDED 10/09 completed Not Available Not Available Not Available chlorthali done 25 mg tablet TAKE 1 TABLET BY MOUTH EVERY DAY 10/09 completed Not Available Not Available Not Available ciprofloxa joseph 250 mg tablet TAKE 1 TABLET BY MOUTH EVERY 12 HOURS FOR 7 DAYS 03/22 completed Not Available Not Available Not Available amlodipine 5 mg tablet TAKE 1 TABLET BY MOUTH EVERY DAY 04/28 completed Not Available Not Available Not Available tramadol 50 mg tablet TAKE 1 TABLET BY MOUTH EVERY 6 HOURS FOR 7 DAYS 04/17 completed Not Available Not Available Not Available amoxicilli n 500 mg tablet TAKE FOUR TABLETS BY MOUTH ONE HOUR PRIOR TO DENTAL PROCEDURE 07/21 completed Not Available Not Available Not Available meloxicam 7.5 mg tablet TAKE 1 TABLET BY MOUTH EVERY DAY FOR 7 DAYS 12/31 completed Not Available Not Available Not Available amoxicilli n 875 mg tablet TAKE 1 TABLET BY MOUTH EVERY 12 HOURS FOR 7 DAYS 12/21 completed Not Available Not Available Not Available diltiazem 120 mg tablet TAKE 1 TABLET BY MOUTH EVERY DAY FOR 30 DAYS 12/21 completed Not Available Not Available Not Available baclofen 10 mg tablet TAKE 1 TABLET BY MOUTH THREE TIMES A DAY NEEDED FOR 14 DAYS 03/22 completed Not Available Not Available Not Available erythromyc in 5 mg/gram (0.5 %) eye ointment APPLY A SMALL AMOUNT TO EACH EYE AT BEDTIME 04/17 completed Not Available Not Available Not Available oxybutynin chloride ER 5 mg tablet,ext ended release 24 hr TAKE 1 TABLET BY MOUTH EVERY DAY FOR 30 DAYS 10/09 completed Not Available Not Available Not Available metoprolol succinate ER 25 mg tablet,ext ended release 24 hr TAKE 1 TABLET BY MOUTH EVERY DAY active Not Available Not Available No t Available methylpred nisolone 4 mg tablets in a dose pack TAKE 6 TABLETS ON DAY 1 DIRECTED ON PACKAGE AND DECREASE BY 1 TAB EACH DAY FOR A TOTAL OF 6 DAYS 12/21 completed Not Available Not Available Not Available SSD 1 % topical cream APPLY A 1/16 INCH (1.5 MM) THICK LAYER TO ENTIRE BURN AREA BY TOPICALRO TANANA 2 TIMES PER DAY 04/17 completed Not Available Not Available Not Available fluticason e propionate 50 mcg/actuat ion nasal spray,susp ension 10/09 completed Not Available Not Available Not Available doxycyclin e hyclate 100 mg tablet Take 1 tablet twice a day by oral route for 5 days. 05/14 completed Not Available Not Available Not Available tobramycin 0.3 %-dexameth asone 0.1 % eye drops,susp ension INSTILL 1 DROP INTO AFFECTED EYE EVERY 6 HOURS 12/21 completed Not Available Not Available Not Available oxycodone 5 mg tablet 04/17 completed Not Available Not Available Not Available neomycin-p olymyxin-h ydrocort 3.5 mg-10,000 unit/mL-1 % ear drops,susp INSTILL 4 DROPS INTO AFFECTED EAR(S) 3 TIMES A DAY 03/22 completed Not Available Not Available Not Available Vitamin D3 25 mcg (1,000 unit) capsule Take 1 capsule by oral route. 06/17 completed twice a week Not Available Not Available Not Available potassium chloride ER 10 mEq tablet,ext ended release(pa rt/cryst) 10/09 completed Not Available Not Available Not Available Flovent HFA 110 mcg/actuat ion aerosol inhaler INHALE 1 PUFF INTO THE LUNGS TWICE A DAY FOR 30 DAYS 04/28 completed Not Available Not Available Not Available chlorthali done 25 mg 1 po daily 12/22 completed Not Available Not Available Not Available Eliquis 5 mg tablet TAKE 1 TABLET BY MOUTH TWICE A DAY active Not Available Not Available No t Available baclofen 5 mg tablet TAKE 1 TABLET BY MOUTH THREE TIMES DAILY FOR 14 DAYS NEEDED 04/17 completed Not Available Not Available Not Available Tiadylt ER 240 mg capsule,ex tended release TAKE 1 CAPSULE BY MOUTH EVERY DAY active Not Available Not Available No t Available Paxlovid 300 mg (150 mg x 2)-100 mg tablets in a dose pack Take 3 tablets twice a day by oral route for 5 days. 06/17 completed Not Available Not Available Not Available Vitals Date Recorded Body height Body mass index (BMI) Body weight Heart rate Oxygen saturation Oxygen saturation in Arterial blood by Pulse oximetry Systolic blood pressure Diastolic blood pressure Provider Name and Address Organization Details Last Updated DateTime 4 160.02 cm 26.4 kg/m2 77854.2 6 g 66 /min 99 % 99 % 130 mm[Hg] 84 mm[Hg] Checo Lin DO [address] [place], [address], [facility] 4 10:22:11 Date Recorded Body height Provider Name an d Address Organization Details Last Updated DateTime 07/21/2024 160.02 cm Christine Ni [facility] 07/21/2024 10:29:13 Date Recorded Body mass index (BMI) Body weight Heart rate Oxygen saturation Oxygen saturation in Arterial blood by Pulse oximetry Systolic blood pressure Diastolic blood pressure Provider Name and Address Organization Details Last Updated DateTime 5 26.5 kg/m2 44400.7 8 g 61 /min 97 % 97 % 128 mm[Hg] 82 mm[Hg] SEMAJ FRITZ [address] [place], [address], [facility] 5 10:33:25 Social History Question Answer Notes LastModified by Organizat ion Details LastModified Time Tobacco Smoking Status Former Smoker Magaly moses [facility] 10/29/2017 09:06:01 What Was The Date Of Your Most Recent Tobacco Screening? 07/21/2024 [email or web address] Information not available 07/21/2024 How Many Years Have You Smoked Tobacco? 5 [email or web address] Information not available 10/29/2017 Do You Or Have You Ever Used Any Other Forms Of Tobacco Or Nicotine? No Information not available 12/22/2023 Sex: Female Functional Status None recorded. Mental Status None recorded. Family History Nothing Reported. Medical History Condition Response Coronary Artery Disease N Gout N Kidney Stones N Blood Diseases N Blood Transfusion N Breast Cancer N COPD N Depression N Lung Disease N Hypothyroidism Y Defects or Inherited Disease N Difficulty Swallowing Y Anesthesia Complications N Meniere's disease N Anxiety Disorder N Muscle, Joint, or Bone Problems N Obesity N Vision or Eye Problems Y Arthritis Y Polyps N Infertility N Mental Disorder N Cancer N Varicosities Y Stroke N Endometriosis N Bladder or Kidney Problems N High Cholesterol Liver Disease N Headaches Y Fibromyalgia N Kidney Disease N Allergies/Hayfever Y Heart Problems N Hospitalizations Y Thyroid Problems Y GI Problems N Eating Disorder N MRSA exposure N Constipation N Mental Illness N Diabetes N Ovarian Cancer N Seizures/Epilepsy N Tuberculosis N Congestive Heart Failure (CHF) N Eczema N Abuse/Domestic Violence N Reflux/GERD N Heart Disease Pulmonary Embolism N Chronic Ear Infections N Pre-Eclampsia N Hypertension Y Chicken Pox Y Autism Spectrum Disorder (ASD) N Osteoporosis N Gynecological History Statement/Question Response Abnormal Pap Most Recent Mammogram 01/20/2017 Obstetrics History GPAL:G 0 P 0 0 0 0 Immunizations Vaccine Type Date Status Note Provider Nam e and Address Organization Details Recorded Time COVID-19, mRNA, LNP-S, PF, 30 mcg/0.3 mL dose 1 completed Not Available [facility] 07/23/2023 19:53:13 Influenza, split virus, quadrivalent, preservative 1 completed Not Available [facility] 07/23/2023 19:53:13 Influenza, adjuvanted, trivalent, PF 6 completed Not Available [facility] 07/23/2023 19:53:13 Tdap 6 completed Not Available [facility] 07/23/2023 19:53:13 COVID-19, mRNA, LNP-S, PF, 30 mcg/0.3 mL dose 1 completed Not Available [facility] 07/23/2023 19:53:13 COVID-19, mRNA, LNP-S, PF, 30 mcg/0.3 mL dose 1 completed Not Available [facility] 07/23/2023 19:53:13 MMR 6 completed Not Available [facility] 07/23/2023 19:53:13 Pneumococcal conjugate PCV 13 6 completed Not Available [facility] 07/23/2023 19:53:13 pneumococcal polysaccharide PPV23 7 completed Not Available [facility] 07/23/2023 19:53:13 Past Encounters Encounter ID Performer Location Encounter Start Date Encounter Closed Date Diagnosis/Indication Diagnosis SNOMED-CT Code Diagnosis ICD10 Code Diagnosis Note [id number] Checo Lin [facility] Internal Medicine [address],[place] [address] 10/29/2017 08:58:55 10/29/2017 10:30:08 Adult health examination 551995569 Z00.01 Essential hypertension 73120055 I10 Hypothyroidism 49141312 E03.9 Mass of guidry bmandibular region 842605607 R22.1 Skin lesion 97797941 L98 .9 Headache 87940013 R51 non focal exam, with other symptoms, ?? allergies, try OTC non drowsy antihistam ine [id number] Checo Lin [facility] Internal [facility] [address],[place] [address] 12/22/2017 09:00:14 12/22/2017 10:04:17 Mass of submandibular region 738800258 R22.1 Aortic valve stenosis 60 422955 I35.0 echo 07/2017, up to date cardiologi st Essential hypertension 48451482 I10 stable, check labs, to do this am Hypothyroidism 53412407 E03.9 complete labs [id number] Checo Lin DO [facility] Internal Medicine [address] [place] [address],[place] [address] 03/01/2018 11:27:04 03/02/2018 08:40:15 Hypothyroidism 46666889 E03.9 reviewed labs Essential hypertension 75214835 I10 stable Aortic mark ve stenosis with insufficiency 854292807 I35.2 Tight chest 51809856 R07 .89 [id number] Checo Lin [facility] Internal Medicine [address] [facility],[place] [address] 11/08/2018 10:37:34 11/08/2018 11:24:44 Paroxysmal atrial fibrillation 653361295 I48.0 on Eliquis Hypothyroidism 76419274 E03.9 no meds Essential hypertension 81644553 I10 stable Aortic mark ve stenosis with insufficiency 993645772 I35.2 up to date echo [id number] Checo Lin [facility] Internal Medicine [address], [place] [address] 02/21/2019 09:14:58 02/21/2019 10:13:56 Fatigue 82742608 R53.83 Dizziness 537059460 R42 very mild ? 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 700429476 D16.7 will need sray to start [id number] Checo Lin [facility] Internal Medicine [address] [place] [address], [place] [facility] [place] [address] 11/05/2020 10:58:21 11/05/2020 16:33:48 Osteoarthritis of left knee joint 3777554672 31564 M17.12 flare up of her osteo in her knee will set up with cortisone and try small short course of meloxicam until we can get her for a cortisone shot [id number] Checo Lin [facility] Internal Medicine [address] [facility],[place] [address] 11/20/2020 11:45:50 11/20/2020 14:50:20 Osteoarthritis of left knee joint 1102298502 40455 M17.12 tolerated inj will follow up after surg to attempt the right knee if warranted [id number] Checo Lin [facility] Internal Medicine [address] [place] [address], [place] [address] 12/31/2020 14:50:55 12/31/2020 16:22:03 Paroxysmal atrial fibrillation 986691094 I48.0 stable Aortic mark ve stenosis with insufficiency 822100562 I35.2 TAVR placeddoin g well Essential hypertension 30978966 I10 BP fine [id number] Checo Lin [facility] Internal [address], [place] [address] 01/17/2021 10:50:20 01/17/2021 11:13:36 Osteoarthritis of right knee joint 0180881755 16013 M17.11 jennifer inj some discomfort but otherwise abe [id number] Checo Lin [facility] Internal [address], [place] [address] 04/28/2021 09:39:15 04/28/2021 10:35:18 Cellulitis of lower leg 489519278 L03.115 fu with repeat check on wednesday Tear of skin 691004554 T 14.8XXA fu with repeat check wednesday Otalgia 49642313 H92.03 use flonase or afrin Bilateral osteoarthritis of knees 2427921382 81173 M17.0 [id number] Checo Lin [facility] Internal [address], [place] [address] 05/02/2021 09:41:05 05/02/2021 10:53:38 Laceration of lower leg 009275080 S81.811A fu on wednesday for wound check Pain in lower limb 34758 006 M79.604 fu with XR [id number] Checo Lin [facility] Internal Medicine [address] [place] [address], [place] [address] 05/05/2021 10:52:11 05/05/2021 14:55:50 Laceration of lower leg 770454862 S81.811A fu wednesday for wound check [id number] Checo Eastman Riley [facility] Internal [facility] [address],[place] [facility] [place] [place] [address] 05/09/2021 10:58:04 05/09/2021 12:06:54 Cellulitis of lower leg 790799815 L03.115 fu with repeat check next week [id number] Checo Eastman Riley [facility] Internal [facility] [address],[place] [address] 05/14/2021 11:20:40 05/14/2021 13:53:47 Laceration of lower leg 504368086 S81.811A fu wednesday for wound check Pain in lower limb 85333 006 M79.604 fu with XR Low back pain 308739096 M54.59 will trial baclofen instead tizanidine as it caused her dizziness [id number] Checo Eastman Riley [facility] Internal [facility] [address],[place] [address] 05/20/2021 11:07:40 05/20/2021 17:07:09 Laceration of lower leg 305783687 S81.811A wait for fu as it is healing well on its own and want to discuss CT when she gets itwill fu after the thanksgibelén williamson en instructio ns for warm compresses on the wound to help loosen skin [id number] Checo SaucedaDanilo Lin [facility] Internal [facility] [address],[place] [address] 06/16/2021 09:35:25 06/16/2021 10:31:07 Edema of left lower leg 939661984 R60.0 will fu with stat US LE for DVT r/o protocol Ecchymosis 038542831 R58 continue with [place] [id number] Checo SaucedaDanilo Lin [facility] Internal [facility] [address] [facility] [address],[place] [address] 05/18/2022 14:18:38 05/19/2022 11:04:19 Chronic cough 36361517 R05.3 will set up with pulmonolog ist Essential hypertension 65088694 I10 BP excellent Nocturia 239928040 R35.1 will trial oxybutynin for the patient [id number] Checo Lin [facility] Internal Medicine [address],[place] [address] 06/12/2022 09:39:46 06/12/2022 13:26:00 Paroxysmal atrial fibrillation 399863771 I48.0 no issues COVID-19 163672568 U07.1 Hypokalemia 65559498 E87 .6 [id number] Checo Lin [facility] Internal Medicine [address],[place] [address] 06/17/2022 11:39:03 06/17/2022 15:27:09 COVID-19 415638172 U07.1 resolvedfi nished med s Chronic cough 49990211 R 05.3 will be seeing Essential hypertension 45790061 I10 bp is actuallyu good Aortic mark ve stenosis with insufficiency 356305608 I35.2 stable and no issue Paroxysmal atrial fibrillation 264708164 I48.0 no issues aymptomati c no presyncope issue [id number] Checo Lin [facility] Internal Medicine [address],[place] [address] 08/11/2022 14:39:02 08/11/2022 16:06:18 Osteoarthritis of right knee joint 3417640122 97859 M17.11 jennifer inj some discomfort but otherwise abe [id number] Checo Lin [facility] Internal Medicine [address],[place] [address] 08/14/2022 15:34:59 08/17/2022 08:38:15 Osteoarthritis of right knee joint 3915323425 09082 M17.11 jennifer inj some discomfort but otherwise abe [id number] Checo Lin [facility] Internal Medicine [address] [facility] [address],[place] [address] 10/09/2022 14:41:09 10/09/2022 15:57:55 Paroxysmal atrial fibrillation 762148880 I48.0 stabled/c diltiazem Hyponatremia 59080307 E8 7.1 will set up with BMPcc results to Dr. Barnard Acute bronchitis 5403206 2 J20.0 resolved Near syncope 302536631 R 55 resolved Syndrome o f inappropriate vasopressin secretion 05940566 E22.2 needs BMP and osm done as well [id number] Checo Lin [facility] Internal Medicine [address] [place] [address] 10/14/2022 09:51:18 10/14/2022 13:53:32 Acute sinusitis 66067991 J01.01 start z pakcontinu e Vaseline at nightstart using her humidifer again Bleeding from nose 06635 6005 R04.0 silver nitrate applied to bilateral nosecheck cbc and iron levels Serous otitis media 8032 7007 H65.03 start ear drop for serous effusion bilateral Hyponatremia 81190243 E8 7.1 will set up with BMP repeatcc results to Dr. Barnard [id number] Checo Lin [facility] Internal Medicine [address] [place] [address] 10/20/2022 11:40:32 10/20/2022 14:00:51 Essential hypertension 90837173 I10 BP excellent Hyponatremia 22611851 E8 7.1 will set up with BMP repeatcc results to Dr. Barnard Hypokalemia 86175302 E87 .6 stable with recheck Syndrome o f inappropriate vasopressin secretion 36526408 E22.2 stable with recheck [id number] Checo Lin [facility] Internal Medicine [address] [place] [address] 04/27/2023 10:49:25 04/27/2023 11:26:37 Osteoarthritis of right knee joint 9816612912 58302 M17.11 jennifer inj some discomfort but otherwise abe [id number] Checo Lin [facility] Internal Medicine [address] [place] [address] 04/28/2023 15:23:41 04/28/2023 16:39:03 Chronic blepharitis 66442641 H01.022 will set up with eye drop, the ointment Dr. hKan didn't help Adult heal th examination 223788281 Z00.00 BP is fine Thoracic back pain 26344 8004 M54.6 massage chair helped (her grandson has it) Low back pain 430161349 M54.59 helpedwoul d like a refill [id number] Checo Lin [facility] Internal Medicine [address] [facility] [address],[place] [address] 07/07/2023 09:04:37 07/07/2023 15:08:01 Syndrome of inappropriate vasopressin secretion 09933569 E22.2 stable with rechecksno new symptoms Atrial fibrillation 4943 6004 I48.0 stable Acute otitis media 36273 03 H65.03 will start on amoxicilli n [id number] Checo Lin [facility] Internal Medicine [address] [facility],[place] [address] 08/02/2023 09:10:23 08/02/2023 13:47:50 Bilateral earache 712159849 H92.03 will try another ENT referral RISHI since condition is not improving and it is really starting to affect her balance and causing dizzy spells [id number] Checo Lin [facility] Internal Medicine [address] [facility],[place] [address] 11/10/2023 08:54:12 11/10/2023 09:11:45 Osteoarthritis of right knee joint 6121469297 79285 M17.11 jennifer inj some discomfort but otherwise abe [id number] Checo Lin [facility] Internal Medicine [address] [facility] [address],[place] [address] 12/22/2023 14:05:05 12/22/2023 15:53:58 Depression screening 746852792 Z13.31 low risk Acute otitis media 57051 03 H65.03 will fu with prednisone taper, abx, and drop due to issues in the past with continued pain Fatigue 58966131 R53.83 will set up with repeat blood work [id number] Checo Lin [facility] Internal Medicine [address] [facility] [address],[place] [address] 03/22/2024 10:15:04 03/22/2024 11:40:16 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 221994435 M47.9 she has tram at home and will take at night to help her sleep Hearing loss 93675140 H9 1.93 has become quite distinct and worsening 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 [place] [place] [address] 07/21/2024 10:27:54 07/21/2024 10:57:10 Overactive urinary bladder 868268038 N32.81 agreed to urogyn and trial an alternativ e medication that is covered by her insurance Health Concerns Section Related Observation LastModified by Organization Detai ls LastModified Time None Recorded Concern Status LastModified by Organization Details LastModified Time None Recorded Advance Directives Directive None Recorded Payers Encounter Date Sequence Insurance Name Policy Number Policy Mackenzie Covered Member ID Mackenzie Member ID Guarantor Name 11/10/2023 1 [place] [employer] Michelle Lai [id number] Michelle Lai 11/10/2023 2 [facility] - CHOICE (EPO) Michelle Lai [id number] Michelle Lai 12/22/2023 1 [place] [employer] Michelle Lai [id number] Michelle Lai 12/22/2023 2 [facility] - CHOICE (EPO) Michelle Lai [id number] Michelle Lai 03/22/[address] [facility] Michelle Lai [id number] Michelle Lai 03/22/2024 2 [facility] - CHOICE (EPO) Michelle Lai [id number] Michelle Servinckworth 03/28/2024 1 [place] [facility] Michelle Lugoworth [id number] Michelle Lugoworth 03/28/2024 2 [facility] (EPO) Michelle Lugoworth [id number] Michelle Servinckworth 07/21/2024 1 [place] [facility] Michelle Servinckworth [id number] Michelle Servinckworth 07/21/2024 2 [facility] (EPO) Michelle Servinckworth [id number] Michelle Servinckworth Notes Date Note Type Note Provider Name and Address Organization Details Recorded Time 11/10/19 24 text/htm l knnown osteoarthritis , has been very uncomfortable as of late and hurts more with weight bearing Checo Lin DO [address] [place], [address], [facility] Internal Medicine 11/10/2023 09:06:42 12/22/19 24 text/htm l c/o right sided ear pain x 2 days has a h/x of ear pain, serous effusion, infectionsnever really got back to baselinehas a significant effusion in her right earleft looks fine will start on triple therapy and fu with update needs recheck bw to check sodium levels SEMAJ FRITZ [address] [place], [address], [facility] Internal Medicine 12/22/2023 14:47:59 03/22/20 24 text/htm l here for rechk and states her back has been bothering her a great dealstates that she has pain kelsea at night Checo Lin DO [address] [place], [address], [facility] Internal Medicine 03/22/2024 10:48:12 03/28/20 24 text/htm l f/u imaging The patient is participating in this appointment via telemedicine communication with a phone call/video calling service (Doxy)The patient consents to use of these platforms in place of an in-person appointment due to either sick symptoms the patient is presenting with or current office closure due to COVID exposure in order to keep our office staff and patients safe reviewed her XR resultsagreed to fu with PSS for injections will forward results with referral not a good surgical candidate, does not want to consult a surgeonwould like to start with injections first pain triggered by walking, leaning, and bending overinterferes with her day to day and hobbies SEMAJ FRITZ [address] [place], [address], [facility] Internal Medicine 03/28/2024 15:28:10 07/21/19 25 text/htm l c/o urinary issues the patient has been suffering with urinary incontinence and overactive bladderthe patient reports that she is up multiple times per day the patient reports she is up every 1 to 2 hours to urinatethe patient is in bed for 8 hours, sleeps possibly 4 year has urge incontinencesometimes can't help it if she has to go she'll just start leaking the patient agreed to trial an alternative medicationand referral to urogynecology SEMAJ FRITZ [address] [place], [address], [facility] Internal Medicine 07/21/2024 10:50:58 OBGyn Episode No OBEpisode recorded.
--- NOTE | 2024-11-07 07:55 | CA_ITS ---
Transthoracic Echocardiogram Patient (Last, First, Middle): Michelle Lai, Gender: Female Date of : 1940 Age: 84 Procedure Date: 11/07/2024 Procedure Type: Transthoracic Echocardiogram Location: OP Height: 162.56 cm Weight: 68.04 kg BSA: 1.73 m2 Heart Rate: bpm BP: 130 / 90 mmHg Kier Operator: NAA/MOISE Referring MD: Gagan Barnard MD Symptoms: Z95.2 - Presence of prosthetic heart valve Study Quality: Adequate ECG Rhythm: Sinus Conclusions: - The left ventricular systolic function is mildly decreased. The calculated ejection fraction is 45% by biplane method. - Evidence suggests grade II (moderate) diastolic dysfunction. - A bioprosthetic aortic valve is present. The prosthetic aortic valve appears to be functioning normally. Findings Left Ventricle Normal left ventricular cavity size. There is mildly increased left ventricular wall thickness. The left ventricular systolic function is mildly decreased. The calculated ejection fraction is 45% by biplane method. There is mild global hypokinesis. Evidence suggests grade II (moderate) diastolic dysfunction. There is moderate septal asymmetric hypertrophy. Right Ventricle Normal right ventricular cavity size and systolic function. Atria The left atrium is moderately dilated. The right atrium is normal in size. Aortic Valve A bioprosthetic aortic valve is present. The prosthetic aortic valve appears to be functioning normally. The mean gradient is 8 mmHg. There is no aortic valve regurgitation. Mitral Valve There is mild mitral annular calcification. There is mild mitral valve regurgitation. There is no mitral valve stenosis. Pulmonic Valve There is trace pulmonic valve regurgitation. Tricuspid Valve There is mild tricuspid valve regurgitation. Mild pulmonary hypertension is present. Great Vessels The asc aorta is normal in size. Venous The inferior vena cava is mildly dilated and collapses greater than 50% with inspiration. Pericardium/Pleural There is no evidence of pericardial effusion. Prior Study Comparison No significant change compared to prior study dated: 10/13/2023. Measurements 2D Linear Measurements IVSd: 1.39 0.6-0.9/0.6-1.0 cm LVIDd: 4.15 3.9-5.3/4.2-5.9 cm LVIDd Index: 2.40 2.4-3.2/2.2-3.1 cm/m2 LVIDs: 3.43 2.0-3.6 cm LVPWd: 1.12 0.7-1.1 cm LA Diam: 4.70 2.7-3.8/3.0-4.0 cm LAIDs Index: 2.72 1.5-2.3 cm/m2 LV Mass: 232.89 67-162/88-224 g LV Mass Index: 134.62 43-95/49-115 g/m2 LVOT Diam: 2.20 3.0+(-)1.3 cm 2D Systolic Function EF 4C: 39.60 >55% EF 2C: 47.50 >55% EF BiP: 44.50 >55% Mitral Valve MV Pk E: 1.04 MV PK A: 1.07 MV Decel Time: 188.00 E/A: 1.00 E'Lateral: 6.09 E'Medial: 3.37 E/E' Med: 30.90 E/E' Lat: 17.10 PHT: 55.00 MVA PHT: 4.00 Decel [place]: 5.52 Aortic Valve AoV Pk Mamadou: 1.79 AoV Mn Mamadou: 1.34 AoV VTI: 0.40 AoV Pk Grad: 13.00 Aov Mn Grad: 8.00 KALA Cont.VTI: 1.81 LVOT LVOT Pk Mamadou: 0.84 LVOT Mn Mamadou: 0.65 LVOT VTI: 0.19 LVOT Pk Grad: 3.00 LVOT Mn Grad: 2.00 LVOT Diam: 2.20 LVOT Area: 3.80 Diastolic Function MV Pk E: 1.04 MV Pk A: 1.07 E/A: 1.00 E'Medial: 3.37 E/E' Med: 30.90 E' Laterial: 6.09 E/E' Lat: 17.10 Right Ventricle TAPSE (mm): 25.60 TVS' Mamadou: 11.50 Tricuspid Valve TR Pk Mamadou: 2.75 TR Pk Grad: 30.00 RA Press: 8.00 RVSP: 38.00 Great Vessels Aorta Ao Asc: 3.50 2.1-3.4 cm Updated in Other Vendor System with Status of Final Amanuel Hood MD electronically signed on 11/09/2024 12:34:42 PM with status of Final
== END ==
LOC: HO.CARD 07:50
PROVIDERS: PCP Internal Medicine; Visit Provider Internal Medicine Cardiovascular Disease
DX: Z95.2 Presence of prosthetic heart valve (principal)
CPT/HCPCS: 93306

== ENCOUNTER → 2024-11-07 07:55 | Outpatient (BNV) | payer MEDICARE, OTHER, SELFPAY | PROVIDERS: PCP Internal Medicine; Visit Provider Internal Medicine | DX: I50.32 Chronic diastolic (congestive) heart failure (principal) | CPT/HCPCS: 93306 ==

== ENCOUNTER 2024-11-22 10:48 | Outpatient (REF) | payer MEDICARE, OTHER, SELFPAY ==
--- OUTSIDE RECORDS SUMMARY | 2024-11-22 12:52 | XMS_ITS | Clinical Summary ---
Author Organization [facility] Facility Address [address] [address] Care Team Providers Care Vamp Seamer Name Role Phone Checo Lin Primary Care Provider [phone] Social History Tobacco Use Types Packs/Day Years [...] age to complete this topic Insurance Medicare [facility] Medicare [facility] Care Teams Vamp Seamer Relationship Specialty Start Date End Date Checo Lin DO [address] [place] [address] PCP - General Internal Medicine 09/30/22
[2024-11-22 14:47] LABS: Anion Gap 12 (12-20); Blood Urea Nitrogen 15 mg/dL (9-16); Carbon Dioxide 26 mmol/L (22-29); Chloride 101 mmol/L (96-108); Estimated Glomerular Filt Rate > 60; Glucose Random 87 mg/dL (60-115); Potassium 4.3 mmol/L (3.3-5.1); Sodium 135 mmol/L (135-145)
== END 2024-11-22 10:49 | disposition home or self-care (01) ==
LOC: HO.LAB 10:48
PROVIDERS: PCP Internal Medicine; Visit Provider Internal Medicine Cardiovascular Disease
DX: I48.0 Paroxysmal atrial fibrillation (principal); I42.9 Cardiomyopathy, unspecified; I10 Essential (primary) hypertension; R53.83 Other fatigue; Z95.2 Presence of prosthetic heart valve
CPT/HCPCS: 36415; 80048; 99212

== ENCOUNTER 2024-11-22 10:48 | Outpatient (AMB) | payer MEDICARE, OTHER, SELFPAY ==
[2024-11-22 11:02] VITALS: BP 120/76; PULSE 66; BMI 25.7
--- NOTE | 2024-11-22 11:02 | MHC.OFFVIS ---
Vital Signs 11/22/24 11:02 Height 5 ft 4 in Weight 149 lb 14.629 oz BMI 25.7 BP 120/76 Blood Pressure Location Lt brachial Position Sitting Pulse 66 Intake Visit Reasons: 6m/echo/labs Intake Note: 6 month follow-up after echo c/o fatigue ? med's Ear Machine Operator Required: No Allergies No Known Drug Allergies Allergy (Verified 05/18/24 10:24) none Medication List - Last Reconciled 11/22/24 by Gagan Barnard MD acetaminophen 500 mg PO Q6H PRN apixaban (Eliquis) 5 mg PO BID metoprolol succinate ER 25 mg PO DAILY valsartan 80 mg PO DAILY HPI Comments Details: Michelle comes for follow-up. She had stopped taking metoprolol because she thought she was getting fatigued by it. However she started noticing heart rate was elevated in his restarted taking metoprolol without any side effects. She says she continued to remain fatigue while off metoprolol therapy and says she has poor sleep due to her bladder issues. She denies any exertional chest pain, shortness of breath. No orthopnea, PND, leg edema. No prolonged palpitation irregular heartbeat. No bleeding issues or neurologic events. Takes all her medications regularly. Her most recent echocardiogram shows mildly reduced LV ejection fraction 45% with normally functioning bioprosthetic aortic valve with grade 2 diastolic dysfunction [facility] Medical History Paroxysmal atrial fibrillation HTN (hypertension) Surgical History History of appendectomy History of hysterectomy S/P TAVR (transcatheter aortic valve replacement) Family History Mother No problems noted. Father Bladder cancer Daughter Autoimmune disease Social History Household Members: Spouse Housing: House Do you presently have visiting nurse or other home services: No Alcohol intake: current Alcohol intake frequency: holidays/special occasions only Alcohol type: wine and hard liquor Comment: pt refuses high fall prevention Patient Tobacco Use Status: Never used Tobacco Years Smoked: 10 +/- Substance Use Type: Marijuana service: No Current occupational status: retired Review of Systems Const Denies chills, Denies fatigue, Denies fever(s), Denies frequent falls, Denies weakness, Denies weight gain and Denies weight loss ENT Denies dizziness Card Denies chest pain, Denies leg edema, Denies lightheadedness, Denies palpitations, Denies dyspnea, Denies dyspnea on exertion, Denies orthopnea and Denies other (loss of consciousness) Resp Denies cough, Denies dyspnea and Denies dyspnea on exertion GI Denies hematochezia and Denies change in stool character Musc Denies abnormal gait, Denies muscle weakness, Denies numbness, Denies radiating pain into limb and Denies tingling Neuro Denies Abnormal speech present, Denies abnormal gait, Denies dizziness, Denies frequent falls, Denies numbness, Denies tingling and Denies weakness Endo Denies fatigue and Denies palpitations Physical Exam Vital Signs: Last Vital Signs Pulse 66 11/22/24 11:02 BP 120/76 11/22/24 11:02 BMI result Body Mass Index 25.7 Const General: cooperative, comfortable, no acute distress, well developed, alert, awake, Physically active and well groomed Nutritional Appearance: average body habitus and well nourished Orientation/consciousness: patient oriented x3 Limitations: no limitations Neck Neck: Yes trachea midline, Yes supple and Yes no JVD Chest Chest palpation & inspection: normal inspection of the chest Resp Effort & Inspection: normal respiratory effort Auscultation: clear to auscultation bilaterally Cardio Jugular venous distension: no JVD Palpation: normal PMI Rate: regular rate Rhythm: abnormal rhythm with ectopic beats Heart sounds: S1 normal heart sound present, S2 normal heart sound present and Murmur heart sound present systolic early GI Auscultation: normal bowel sounds Skin General skin exam: no rashes or lesions noted Neuro General: patient oriented x3 and no focal motor deficits Speech: No Abnormal speech present Extrem General: Yes no clubbing, cyanosis or edema Assessment & Plan Assessment & Plan (1) S/P TAVR (transcatheter aortic valve replacement): Comment: 26 mm [employer], 12/09/2020 Code(s): Z95.2 - Presence of prosthetic heart valve Category: Surgical Plan: Status post transcatheter aortic valve replacement with severe aortic stenosis. Valve is working well clinically as well as by recent echocardiogram. Continue oral anticoagulation therapy with Eliquis. Continue SBE prophylaxis as per ACC/aha guidelines. (2) Paroxysmal atrial fibrillation: Code(s): I48.0 - Paroxysmal atrial fibrillation Category: Medical Plan: Paroxysmal atrial fibrillation without any obvious clinical recurrence at this point time. Continue to avoid stimulants. Continue metoprolol therapy. Has done well with rhythm control approach will continue pursue rhythm control approach. No indication for antiarrhythmic drug therapy. Continue full oral anticoagulation, currently on Eliquis 5 mg b.i.d.. Semi annual renal function test should be pursued. (3) Cardiomyopathy: Code(s): I42.9 - Cardiomyopathy, unspecified Category: Medical Plan: Mild cardiomyopathy without any overt signs of congestive heart failure. Currently on neurohormonal modulation with valsartan and metoprolol which she is tolerating. Overall blood pressure is well controlled. Signs and symptoms of heart failure were discussed. No change in therapy. Will follow up in the clinic in 6 months time, sooner p.r.n.. Thank you for allowing me to partake her care Orders: Orders Basic Metabolic Panel Today I48.0 - Paroxysmal atrial fibrillation Coding Level of Care Code Est Pt Level 4 (15469) Complex EM visit Add On G2211 Diagnoses S/P TAVR (transcatheter aortic valve replacement) Z95.2 Paroxysmal atrial fibrillation I48.0 Cardiomyopathy I42.9
--- OUTSIDE RECORDS SUMMARY | 2024-11-22 12:18 | XMS_ITS | Data Portability ---
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 [email or web address] [facility] [address], [address], 08/03/2024 14:54:39 08/18/19 25 05/01/2024 audio gram No observ ation [facility]. [email or web address] Not Available 2024 09:59:28 Result Notes None recorded. 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 Procedures Surgical History Date Name Laterality Status Provider Name and Address Organization Details Recorded Time hysterectomy completed MARIA INES CASTANEDA MD [address] [place] [address], [phone], [facility] - [facility] 08/08/2024 08:58:33 replacement of aortic valve completed MARIA INES CASTANEDA MD [address] [facility] [address], [place], [phone], [facility] - [facility] 08/08/2024 08:58:40 Imaging Results Imaging Date Name Status LastModified by Organiz ation Details LastModified Time 04/26/2024 audiogram completed [id number] [facility] [address] [facility] [address], [place], [address], 08/03/2024 14:54:39 05/01/2024 audiogram [place] [id number] Information no t available 08/18/2024 09:59:28 Procedure [...] Updated DateTime 09/21/2024 162.56 cm 25.7 kg/m2 41568.86 g Ailyn Todd [facility] 09/21/2024 10:31:27 Date Recorded Body height Body mass index (BMI) Body weight Provider Name and Address Organization Details Last Updated DateTime 08/03/2024 162.56 cm 25.6 kg/m2 81777.26 g Ailyn Todd [facility] 08/03/2024 14:25:05 Social History None recorded. Functional Status None recorded. Mental Status None recorded. Family History Nothing Reported. Medical History Condition Response Hypertension Y Gynecological HistoryNo gynecological history recorded. 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 [id number] MARIA INES CASTANEDA MD [facility] on [address] [place] [id number] 09/21/2024 10:17:43 09/21/2024 10:53:37 Mixed conductive and sensorineural hearing loss, bilateral [id number] H90.6 The squamous casts were completely removed, [...] Recorded Advance Directives Directive None Recorded Payers Insurance Date Sequence Insurance Name Policy Number Policy Mackenzie Covered Member ID Mackenzie Member ID Guarantor Name 09/21/2024 2 [facility] Michelle Laura Joelle [id number] Michelle Lai 09/21/2024 1 MEDICARE [place] [facility] Michelle Lai [id number] Michelle Lai Notes Date Note Type Note Provider Name and Address Organization Details Recorded Time 08/03/2024 text/html 84-year-old samina carmona presents today for evaluation of hearing loss. She has had evaluation at [facility] in April and prior to that in [...] air-bone gap noted. MARIA INES CASTANEDA MD [address] [place] [address],[address], [phone], [facility] 08/08/2024 09:01:38 09/21/2024 text/html 84-year-old samina carmona here today for reassessment of ear blockage. She has been using oil drops since her last visit. She did stop them but has used Debrox in the past week. MARIA INES CASTANEDA MD [address] [place] [address],[address], [phone], [facility] 09/21/2024 10:56:05 OBGyn Episode No OBEpisode recorded.
--- OUTSIDE RECORDS SUMMARY | 2024-11-22 12:18 | XMS_ITS | Clinical Summary ---
Author Organization [facility] Facility Address [address] [address] Care Team Providers Care Program Specialist Name Role Phone Checo Lin Primary Care Provider [phone] Social History Tobacco Use Types Packs/Day Years [...] age to complete this topic Insurance Medicare [facility] Medicare [facility] Care Teams Program Specialist Relationship Specialty Start Date End Date Checo Lin DO [address] [place] [id number] PCP - General Internal Medicine 09/30/22
--- OUTSIDE RECORDS SUMMARY | 2024-11-22 12:18 | XMS_ITS | Data Portability ---
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) MDM MODERATE MUST MEET 2 OUT OF [...] communication with a phone call/video calling service ([employer]) The patient consents to use of these [...] TSH + free T4, serum 2023 024 [facility], [address] [place] [address], [address], 4 14:52:41 iron + TIBC + ferriti n, serum 2023 024 [facility], [address] [place] [address], [address], 4 14:52:41 vitamin B12 + folate, serum or blood 2023 024 [facility], [address] [place] [address], [address], 4 14:52:41 vitamin D, 25-hydr oxy, total, serum 2023 024 [facility], [address] [place] [address], [address], 4 14:52:41 hemoglo bin A1c, QN, blood 2023 024 [facility], [address] [place] [address], [address], 4 14:52:41 CBC w/ auto diff 2023 024 [facility], [address] [place] [address], [address], 4 14:52:40 CMP, serum or plasma 2023 024 [facility], [address] [place], [address], 4 11:26:41 Referral urogyne cologis t referra l 2024 025 [facility]ologist Scheduling Dept, [address] [place] [address], [address], 5 13:51:05 orthope dic spine surgeon referra l 2023 024 [facility], [address] [place], [address], 4 08:52:58 hearing screeni ng referra l 2023 024 [facility], [address] [facility], [place] [address], [place], [address], 4 09:02:56 Procedures None recorde d. Surgeries None recorde d. Imaging XR, lumbar spine, 2 view 2023 024 [facility], [place], [address], 4 15:24:57 XR, thoraci c spine, 2 view 2023 024 [facility], [place], [address], 4 15:37:34 Medication Orders toltero dine ER 2 mg capsule ,extend ed release 24 hr 2024 025 [facility]acy #2025, [address] [place], [address], 5 10:46:37 prednis one 10 mg tablet 2023 024 [facility] #2024, [address] [place], [address], 4 10:20:36 neomyci n-polym yxin-hy drocort 3.5 mg-10,0 00 unit/mL -1 % ear drops,s half-way 2023 024 [facility] #2024, [address] [place], [address], 4 10:20:42 ciprofl oxacin 250 mg tablet 2023 024 [facility] #2024, [address] [place], [address], 4 10:20:19 Patient TargetsNo targets recorded. Patient Instructions Encounter Date Encounter Id Patient Instructions Last Modified By Organization Details Last Modified Time 03/22/2024 [id number] hearing loss: care instructions Not available 03/22/2024 [...] 2 view No observ ation record ed. [facility] (Medical Records) [address] [place], [address], 02/06/2024 16:04:09 02/12/2002/11/2024 elect rocar diogr am No observ ation record ed. [email or web address] [place] [address] (Medical Records) [address] [place], [address], 02/13/2024 22:14:50 03/09/20 24 03/09/2024 XR, hip + pelvi s, unila teral , 2 or 3 view No observ ation record ed. [facility] (Medical Records) [address] [place] [address], [address], 03/10/2024 08:49:51 03/24/20 24 03/24/2024 XR, lumba r spine , 2 view No observ ation record ed. [address] (Medical Records) [address] [place], [address], 03/27/2024 15:36:40 03/24/20 24 03/24/2024 XR, thora cic spine , 2 view No observ ation record ed. [address], [address], 03/27/2024 15:36:41 04/13/20 24 04/04/2024 MAMMO , scree paula, digit al, bilat eral No observ ation record ed. [facility] [address] [place], [address], 04/14/2024 08:35:03 Result Notes None recorded. Problems Name Problem SNOMED Code Status Onset Date Resolution Date Notes Provider Name and Address Organization Details Recorded Time Celluliti s of lower leg 469735203 Active 2020 Not Available [facility] 4 19:53:13 Dizziness 157027803 Active 2021 Not Available [facility] 4 19:53:13 Chronic cough 52210261 Active 2021 Not Available [facility] 4 19:53:13 Nocturia 845410969 Active 2021 Not Available [facility] 4 19:53:12 COVID-19 126692270 Active 2021 [facility] Available [facility] 4 19:53:13 Hypokalem ia 53407319 Active 2021 Not Available [facility] 4 19:53:13 Interstit ial lung disease 297018360 Active 2021 Not Available [facility] 4 19:53:12 Osteoarth ritis of right knee joint 819051846472 100 Active 2022 Not Available [facility] 4 19:53:13 Hyponatre dipak 95045805 Active 2022 Not Available [facility] 4 19:53:13 Acute bronchiti s 54039851 Active 2022 Not Available [facility] 4 19:53:12 Near syncope 215923685 Active 2022 Not Available [facility] 4 19:53:13 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 43474729 Active 2022 Not Available [facility] 4 19:53:13 Acute sinusitis 01537421 Active 2022 Not Available [facility] 4 19:53:12 Bleeding from nose 027993216 Active 2022 Not Available [facility] 4 19:53:12 Serous otitis media 62196378 Active 2022 Not Available [facility] 4 19:53:13 Blepharit is 95196165 Active 2022 Not Available [facility] 4 19:53:13 Chronic blepharit is 86900817 Active 2022 Not Available [facility] 4 19:53:13 Chronic blepharit is 62443571 Active 2022 Not Available [facility] 4 19:53:13 Thoracic back pain 700475167 Active 2022 Not Available [facility] 4 19:53:12 Low back pain 808816382 Active 2022 Not Available [facility] 4 19:53:12 Atrial fibrillat ion 07813301 Active 2023 Not Available [facility] 4 19:53:13 Acute otitis media 3192766 Active 2023 Not Available [facility] 4 19:53:13 Acute otitis media 4042034 Active 2023 Not Available [facility] 4 19:53:13 Serous otitis media 05124594 Active 2023 Not Available [facility] 4 19:53:13 Bilateral earache 143271316 Active 2023 SEMAJ FRITZ [address] [place] [address], [address], [facility] 4 11:37:38 Fatigue 95253301 Active 2023 SEMAJ FRITZ [address] [place] [address], [address], [facility] 4 14:42:10 Pain of left hip joint 876636196264 100 Active 2023 SEMAJ FRITZ [address] [place] [address], [address], [facility] 4 15:24:30 Osteoarth ritis of hip 435380655 Active 2023 SEMAJ FRITZ [address] [place], [address], [facility] 4 08:50:18 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 704614732 Active 2023 Checo Lin DO [address] [place] [address], [address], [facility] 4 10:34:13 Hearing loss 71323768 Active 2023 Checo Lin DO [address] [place] [address], [address], [facility] 4 10:38:21 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 140437740 Active 2023 Checo Lin DO [address] [place] [address], [address], [facility] 4 10:43:36 Paroxysma l atrial fibrillat ion 913619233 Active 2023 Checo Lin, [address] [place] [address], [address], [facility] 4 10:47:50 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 80210310 Active 2023 SEMAJ FRITZ [address] [place] [address], [address], [facility] 4 15:22:14 Sensorine ural hearing loss 60883448 Active 2023 Checo Lin, [address] [place] [address], [address], [facility] 4 21:50:09 Overactiv e urinary bladder 961121289 Active 2024 SEMAJ FRITZ [address] [place] [address], [address], [facility] 5 10:43:27 Aortic valve stenosis with insuffici ency 498758852 Active 2017 Dr. blanche kirby, echo 018 Not Available [facility] 4 19:53:12 Essential hypertens ion 23448416 Active 2017 Not Available [facility] 4 19:53:13 Varicose veins of lower extremity 39959771 Active 2017 Not Available [facility] 4 19:53:13 Hypothyro idism 90827798 Active 2017 Not Available [facility] 4 19:53:13 Problem Notes None recorded. Procedures Surgical History Date Name Laterality Status Provider Name and Address Organization Details Recorded Time 024 Corticosteroid Injection completed Checo Lin DO [address] [place] [address], [address], [facility] 11/10/2023 09:02:09 023 Corticosteroid Injection completed Checo Lin, DO [address] [place], [address], [facility] 04/27/2023 11:06:12 023 Corticosteroid Injection completed Checo Lin, DO [address] [place], [address], [facility] 08/19/2022 11:51:04 023 Corticosteroid Injection completed Checo Lin, DO [address] [place], [address], [facility] 08/11/2022 15:17:29 021 WOUND CARE completed SEMAJ FRITZ [address] [place] [address], [address], [facility] 05/20/2021 12:36:30 021 WOUND CARE completed SEMAJ FRITZ [address] [place] [address], [address], [facility] 05/14/2021 11:43:29 021 WOUND CARE completed SEMAJ FRITZ [address] [place], [address], [facility] 05/09/2021 11:14:19 021 WOUND CARE completed SEMAJ FRITZ [address] [place] [address], [address], [facility] 05/05/2021 11:33:03 021 WOUND CARE completed SEMAJ FRITZ [address] [place] [address], [address], [facility] 05/02/2021 10:51:30 021 WOUND CARE completed SEMAJ FRITZ [address] [place] [address], [address], [facility] 04/28/2021 10:18:13 021 Corticosteroid Injection completed Checo Lin DO [address] [place] [address], [address], [facility] 01/17/2021 11:10:46 021 Corticosteroid Injection completed Checo Lin DO [address] [place], [address], [facility] 11/20/2020 12:00:12 017 Most Recent Mammogram completed Rhoda Villa NP, S [address] [place], [address], [facility] 10/27/2017 15:05:38 980 Total Hysterectomy completed Rhoda Villa NP, S [address] [place] [address], [address], [facility] 10/27/2017 15:06:10 Appendectomy completed [facility] Internal [facility] 12/21/2017 13:53:51 Tonsillectomy completed [facility] 12/21/2017 13:54:02 Imaging Results Imaging Date Name Status LastModified by Organization Details LastModified Time 02/05/2024 XR, chest, 2 view completed [address] (Medical Records) [address] [place], [address], 02/06/2024 16:04:09 02/11/2024 electrocardiogram completed [address] (Medical Records) [address] [place], [address], 02/13/2024 22:14:50 03/09/2024 XR, hip + pelvis, unilateral, 2 or 3 view completed [email or web address] [facility] (Medical Records) [address] [place], [address], 03/10/2024 08:49:51 03/24/2024 XR, lumbar spine, 2 view completed [address] (Medical Records) [address] [place], [address], 03/27/2024 15:36:40 03/24/2024 XR, thoracic spine, 2 view completed [facility], [place], [address], 03/27/2024 15:36:41 04/04/2024 MAMMO, screening, digital, bilateral completed [email or web address] [facility] [address] [place], [address], 04/14/2024 08:35:03 Procedure Notes None recorded. Medical Equipment None Reported. Allergies Allergen ID Allergen Name Allergen Category Reaction Reaction Severity Criticality Documentation Date Start Date Code Code System Note Provider Name and Address Organization Details Recorded Time 1083 lisinopri l medicatio n cough Not available Not available 10/29/2017 39722 RxNorm Rhoda Villa NP, S [address] [place], [address], [facility] 8 09:21:40 5038 tizanidin e medicatio n dizziness moderate Not available 05/14/2021 70281 RxNorm SEMAJ FRITZ [address] [place], [address], [facility] 11:40:50 Medications Name Sig Start [...] LAYER TO ENTIRE BURN AREA BY TOPICALRO HIRAM 2 TIMES PER DAY 04/17 completed Not [...] Updated DateTime 4 160.02 cm 26.4 kg/m2 42674.2 6 g 66 /min 99 % 99 % 130 mm[Hg] 84 mm[Hg] Checo Lin DO [address] [place], [address], [facility] 4 10:22:11 Date Recorded Body height Provider Name an d Address Organization Details Last Updated DateTime 07/21/2024 160.02 cm Christine Ni [facility] 07/21/2024 10:29:13 Date Recorded Body mass index (BMI) Body weight Heart rate Oxygen saturation Oxygen saturation in Arterial blood by Pulse oximetry Systolic blood pressure Diastolic blood pressure Provider Name and Address Organization Details Last Updated DateTime 5 26.5 kg/m2 85718.7 8 g 61 /min 97 % 97 % 128 mm[Hg] 82 mm[Hg] SEMAJ FRITZ [address] [place], [address], [facility] 5 10:33:25 Social History Question Answer Notes LastModified by Organizat ion Details LastModified Time Tobacco Smoking Status Former Smoker Magaly [facility] 10/29/2017 09:06:01 What Was The Date Of Your Most Recent Tobacco Screening? 07/21/2024 [email or web address] Information not available 07/21/2024 How Many Years Have You Smoked Tobacco? 5 [email or web address] Information not available 10/29/2017 Sex: Female Functional Status Question Answer Note LastModified by Organization D etails LastModified Time Do you or have you ever used any other forms of tobacco or nicotine? No [email or web address] Information not available 12/22/2023 Mental Status None recorded. Family History Nothing Reported. Medical History Condition Response Coronary Artery Disease N Gout N Blood Diseases N Kidney Stones N Breast Cancer N Blood Transfusion N Hypothyroidism Y Lung Disease N Depression N COPD N Defects or Inherited Disease N Difficulty Swallowing Y Anesthesia Complications N Meniere's disease N Anxiety Disorder N Muscle, Joint, or Bone Problems N Obesity N Vision or Eye Problems Y Arthritis Y Infertility N Polyps N Mental Disorder N Cancer N Stroke N Varicosities Y Endometriosis N Bladder or Kidney Problems N High Cholesterol Liver Disease N Fibromyalgia N Headaches Y Kidney Disease N Allergies/Hayfever Y Heart Problems [...] mL dose 1 completed Not Available [facility] 07/23/2023 19:53:13 Influenza, split virus, quadrivalent, preservative 1 completed Not Available [facility] 07/23/2023 19:53:13 Influenza, adjuvanted, trivalent, PF 6 completed Not Available [facility] 07/23/2023 19:53:13 Tdap 6 completed Not Available [facility] 07/23/2023 19:53:13 COVID-19, mRNA, LNP-S, PF, 30 mcg/0.3 mL dose 1 completed Not Available [facility] 07/23/2023 19:53:13 COVID-19, mRNA, LNP-S, PF, 30 mcg/0.3 mL dose 1 completed Not Available [facility] 07/23/2023 19:53:13 MMR 6 completed Not Available [facility] 07/23/2023 19:53:13 Pneumococcal conjugate PCV 13 6 completed Not Available [facility] 07/23/2023 19:53:13 pneumococcal polysaccharide PPV23 7 completed Not Available [facility] 07/23/2023 19:53:13 Past Encounters Encounter ID Performer Location Encounter Start Date Encounter Closed Date Diagnosis/Indication Diagnosis SNOMED-CT Code Diagnosis ICD10 Code Diagnosis Note [id number] Checo Lin DO [facility] [address] [place] [address] 10/29/2017 08:58:55 10/29/2017 10:30:08 Adult health examination 492996107 Z00.01 Essential hypertension 72294127 I10 Hypothyroidism 66224527 E03.9 Mass of guidry bmandibular region 116360637 R22.1 Skin lesion 53372676 L98 .9 Headache 69204607 R51 non focal exam, with other symptoms, ?? allergies, try OTC non drowsy antihistam ine [id number] Checo Lin DO [facility] [address] [place] [address] 12/22/2017 09:00:14 12/22/2017 10:04:17 Mass of submandibular region 462643632 R22.1 Aortic valve stenosis 60 424373 I35.0 echo 07/2017, up to date cardiologi st Essential hypertension 80377225 I10 stable, check labs, to do this am Hypothyroidism 04297299 E03.9 complete labs [id number] Checo Lin DO [facility] [address] [place] [address],[place] [address] 03/01/2018 11:27:04 03/02/2018 08:40:15 Hypothyroidism 40911500 E03.9 reviewed labs Essential hypertension 40561419 I10 stable Aortic mark ve stenosis with insufficiency 498025522 I35.2 Tight chest 32357997 R07 .89 [id number] Checo Lin [facility] [address] [facility] [address] 11/08/2018 10:37:34 11/08/2018 11:24:44 Paroxysmal atrial fibrillation 377105904 I48.0 on Eliquis Hypothyroidism 40161959 E03.9 no meds Essential hypertension 77780689 I10 stable Aortic mark ve stenosis with insufficiency 896566863 I35.2 up to date echo [id number] Checo Lin [facility] [address] [facility],[place] [address] 02/21/2019 09:14:58 02/21/2019 10:13:56 Fatigue 74193065 R53.83 Dizziness 631621367 R42 very mild ? 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 964930037 D16.7 will need sray to start [id number] Checo Lin [facility] [address] [facility] [address] [place] [address] 11/05/2020 10:58:21 11/05/2020 16:33:48 Osteoarthritis of left knee joint 9221522010 49234 M17.12 flare up of her osteo in her knee will set up with cortisone and try small short course of meloxicam until we can get her for a cortisone shot [id number] Checo Lin [facility] [address] [facility],[place] [address] 11/20/2020 11:45:50 11/20/2020 14:50:20 Osteoarthritis of left knee joint 8024922110 04697 M17.12 tolerated inj will follow up after surg to attempt the right knee if warranted [id number] Checo Lin [facility] [address] [facility] [address] 12/31/2020 14:50:55 12/31/2020 16:22:03 Paroxysmal atrial fibrillation 888992079 I48.0 stable Aortic mark ve stenosis with insufficiency 387730488 I35.2 TAVR placeddoin g well Essential hypertension 13129324 I10 BP fine [id number] Checo Lin [facility] [address] [facility],[place] [address] 01/17/2021 10:50:20 01/17/2021 11:13:36 Osteoarthritis of right knee joint 9309041864 70013 M17.11 jennifer inj some discomfort but otherwise abe [id number] Checo Lin [facility] [address] [facility],[place] [address] 04/28/2021 09:39:15 04/28/2021 10:35:18 Cellulitis of lower leg 790535222 L03.115 fu with repeat check on wednesday Tear of skin 213047910 T 14.8XXA fu with repeat check wednesday Otalgia 62789220 H92.03 use flonase or afrin Bilateral osteoarthritis of knees 3700012816 97872 M17.0 [id number] Checo Lin [facility] [address] [facility],[place] [address] 05/02/2021 09:41:05 05/02/2021 10:53:38 Laceration of lower leg 395147934 S81.811A fu on wednesday for wound check Pain in lower limb 84533 006 M79.604 fu with XR [id number] Checo Lin [facility] Internal [facility] [address] [facility] [address] [facility] [place] [address] 05/05/2021 10:52:11 05/05/2021 14:55:50 Laceration of lower leg 245852992 S81.811A fu wednesday for wound check [id number] Checo Jaren Lin [facility] [address] [facility] [address] [place] [facility] [address] 05/09/2021 10:58:04 05/09/2021 12:06:54 Cellulitis of lower leg 459968106 L03.115 fu with repeat check next week [id number] Checo Lin [facility] [address],[place] [address] [facility] [address] 05/14/2021 11:20:40 05/14/2021 13:53:47 Laceration of lower leg 806862018 S81.811A fu wednesday for wound check Pain in lower limb 44687 006 M79.604 fu with XR Low back pain 674588092 M54.59 will trial baclofen instead tizanidine as it caused her dizziness [id number] Checo Lin [facility] [address],[place] [address] 05/20/2021 11:07:40 05/20/2021 17:07:09 Laceration of lower leg 282183329 S81.811A wait for fu as it is healing well on its own and want to discuss CT when she gets itwill fu after the martha williamson en instructio ns for warm compresses on the wound to help loosen skin [id number] Checo Lin [facility] [address],[place] [address] 06/16/2021 09:35:25 06/16/2021 10:31:07 Edema of left lower leg 025592152 R60.0 will fu with stat US LE for DVT r/o protocol Ecchymosis 089356543 R58 continue with [place] [id number] Checo Lin [facility] [address] [facility],[place] [address] 05/18/2022 14:18:38 05/19/2022 11:04:19 Chronic cough 49339312 R05.3 will set up with pulmonolog ist Essential hypertension 46996874 I10 BP excellent Nocturia 338439397 R35.1 will trial oxybutynin for the patient [id number] Checo Eastman Riley [facility] [address] [facility], ite [facility] [place] [address] 06/12/2022 09:39:46 06/12/2022 13:26:00 Paroxysmal atrial fibrillation 612122836 I48.0 no issues COVID-19 627871954 U07.1 Hypokalemia 76257343 E87 .6 [id number] Checo Eastman Riley [facility] [address] [facility], [facility] [place] [address] 06/17/2022 11:39:03 06/17/2022 15:27:09 COVID-19 126383609 U07.1 resolvedfi nished med s Chronic cough 17741865 R 05.3 will be seeing Essential hypertension 26636069 I10 bp is actuallyu good Aortic mark ve stenosis with insufficiency 721926425 I35.2 stable and no issue Paroxysmal atrial fibrillation 729065054 I48.0 no issues aymptomati c no presyncope issue [id number] Checo Eastman Riley [facility] [address] [facility], [address] [place] [address] 08/11/2022 14:39:02 08/11/2022 16:06:18 Osteoarthritis of right knee joint [id number] 20628 M17.11 jennifer inj some discomfort but otherwise abe [id number] Checo Eastman Riley [facility] Internal Medicine [address] [facility] [address], [place] [address] 08/14/2022 15:34:59 08/17/2022 08:38:15 Osteoarthritis of right knee joint [id number] 22306 M17.11 jennifer inj some discomfort but otherwise abe 06115 Checo Clarkeedwige [facility] Internal Medicine [address] [facility], [place] [address] 10/09/2022 14:41:09 10/09/2022 15:57:55 Paroxysmal atrial fibrillation [id number] I48.0 stabled/c diltiazem Hyponatremia 31133185 E8 7.1 will set up with BMPcc results to Dr. Barnard Acute bronchitis 2465947 2 J20.0 resolved Near syncope 735586358 R 55 resolved Syndrome o f inappropriate vasopressin secretion 19324696 E22.2 needs BMP and osm done as well 74209 Checo Lin [facility] Internal [facility] [address] [place] [address] 10/14/2022 09:51:18 10/14/2022 13:53:32 Acute sinusitis 83661226 J01.01 start z pakcontinu e Vaseline at nightstart using her humidifer again Bleeding from nose 09499 6005 R04.0 silver nitrate applied to bilateral nosecheck cbc and iron levels Serous otitis media 8032 7007 H65.03 start ear drop for serous effusion bilateral Hyponatremia 91253754 E8 7.1 will set up with BMP repeatcc results to Dr. Barnard [address]52 [facility] [address] [place] [address] 10/20/2022 11:40:32 10/20/2022 14:00:51 Essential hypertension 83349216 I10 BP excellent Hyponatremia 58166685 E8 7.1 will set up with BMP repeatcc results to Dr. Barnard Hypokalemia 32637969 E87 .6 stable with recheck Syndrome o f inappropriate vasopressin secretion 21707503 E22.2 stable with recheck [id number] Checo Lin [facility] Internal [facility] [address] [place] [address] 04/27/2023 10:49:25 04/27/2023 11:26:37 Osteoarthritis of right knee joint [id number] 44852 M17.11 jennifer inj some discomfort but otherwise abe 83539 Checo Lin [facility] Internal [facility] [address] [place] [address] 04/28/2023 15:23:41 04/28/2023 16:39:03 Chronic blepharitis 82888889 H01.022 will set up with eye drop, the ointment Dr. Khan didn't help Adult heal th examination 398005202 Z00.00 BP is fine Thoracic back pain 56957 8004 M54.6 massage chair helped (her grandson has it) Low back pain 801933335 M54.59 helpedwoul d like a refill [id number] Checo Lin [facility] Internal Medicine [address] [facility] [address] 07/07/2023 09:04:37 07/07/2023 15:08:01 Syndrome of inappropriate vasopressin secretion 33158695 E22.2 stable with rechecksno new symptoms Atrial fibrillation 4943 6004 I48.0 stable Acute otitis media 80867 03 H65.03 will start on amoxicilli n [id number] Checo Lin [facility] Internal Medicine [address] [facility] [place] [address] 08/02/2023 09:10:23 08/02/2023 13:47:50 Bilateral earache 083093573 H92.03 will try another ENT referral RISHI since condition is not improving and it is really starting to affect her balance and causing dizzy spells [id number] Checo Lin [facility] Internal Medicine [address] [facility] [address] [place] [address] 11/10/2023 08:54:12 11/10/2023 09:11:45 Osteoarthritis of right knee joint 3805096985 23199 M17.11 jennifer inj some discomfort but otherwise abe [id number] Checo Lin [facility] Internal Medicine [address] [facility] [address] 12/22/2023 14:05:05 12/22/2023 15:53:58 Depression screening 496491377 Z13.31 low risk Acute otitis media 62624 03 H65.03 will fu with prednisone taper, abx, and drop due to issues in the past with continued pain Fatigue 81070079 R53.83 will set up with repeat blood work [id number] Checo Lin [facility] Internal Medicine [address] [facility] [address] [address] 03/22/2024 10:15:04 03/22/2024 11:40:16 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 817206606 M47.9 she has tram at home and will take at night to help her sleep Hearing loss 49123760 H9 1.93 has become quite distinct and worsening 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 968864794 M47.9 [id number] Checo Lin [facility] Internal Medicine [address] [facility] [address], [place] [address] 03/28/2024 09:36:11 03/28/2024 15:28:58 Degeneration of lumbar intervertebral disc 24023549 M51.36 sent referral for inj consult [id number] Checo Lin [facility] Internal Medicine [address] [facility], [place] [address] 07/21/2024 10:27:54 07/21/2024 10:57:10 Overactive urinary bladder 272273581 N32.81 agreed to urogyn and trial an [...] Member ID Guarantor Name 11/10/2023 1 MEDICARE B-IN: [employer] Michelle Lai [id number] Michelle Lai 11/10/2023 2 [facility] - CHOICE (EPO) Mihcelle Lai [id number] Michelle Lai 12/22/2023 1 MEDICARE B-IN: [employer] Michelle Lai [id number] Michelle Lai 12/22/2023 2 [facility] - CHOICE (EPO) Michelle Lai [id number] Michelle Lai 03/22/2024 1 MEDICARE B-[place]: [facility] GOVERNMENT SERVICES Michelle Lai [id number] Michelle Lai 03/22/2024 2 [facility] - CHOICE (EPO) Michelle Servinckworth [id number] Michelle Servinckworth 03/28/2024 1 MEDICARE B-[place]: [facility] Michelle Servinckworth [id number] Michelle Servinckworth 03/28/2024 2 [facility] - CHOICE (EPO) Michelle Servinckworth [id number] Michelle Servinckworth 07/21/2024 1 MEDICARE B-[place]: [facility] Michelle Servinckworth [id number] Michelle Servinckworth 07/21/2024 2 [facility] - CHOICE (EPO) Michelle Servinckworth [id number] Michelle Servinckworth Notes Date Note Type Note Provider Name and Address Organization Details Recorded Time 11/10/19 24 text/htm l knnown osteoarthritis , has been very uncomfortable as of late and hurts more with weight bearing Checo Lin DO [address] [place], [address], [facility] 11/10/2023 09:06:42 12/22/19 24 text/htm l c/o right sided ear pain x 2 days has a h/x of ear pain, serous effusion, infectionsnever really got back to baselinehas a significant effusion in her right earleft looks fine will start on triple therapy and fu with update needs recheck bw to check sodium levels SEMAJ FRITZ [address] [place], [address], [facility] Internal [facility] 12/22/2023 14:47:59 03/22/20 24 text/htm l here for rechk and states her back has been bothering her a great dealstates that she has pain kelsea at night Checo Lin DO [address] [place], [address], [facility] 03/22/2024 10:48:12 03/28/20 24 text/htm l f/u imaging The patient is participating in this appointment via telemedicine communication with a phone call/video calling service ([employer])The patient consents to use of these platforms [...] to day and hobbies SEMAJ FRITZ [address] [place], [address], [facility] Internal Medicine 03/28/2024 15:28:10 07/21/19 25 text/htm [...] medicationand referral to urogynecology SEMAJ FRITZ [address] [place], [address], [facility] Internal [facility] 07/21/2024 10:50:58 OBGyn Episode No OBEpisode recorded.
== END 2024-11-22 11:20 | disposition home or self-care (01) ==
LOC: HO.HCS 10:49
PROVIDERS: PCP Internal Medicine; Visit Provider Internal Medicine Cardiovascular Disease
DX: Z95.2 Presence of prosthetic heart valve (principal); I48.0 Paroxysmal atrial fibrillation; I42.9 Cardiomyopathy, unspecified
CPT/HCPCS: 99214; G2211

== ENCOUNTER 2025-02-20 13:14 | Outpatient (REF) | payer MEDICARE, OTHER, SELFPAY ==
--- NOTE | ~2025-02-20 | US_ITS ---
EXAMINATION: US SOFT TISSUE HEAD AND/OR NECK CLINICAL INFORMATION: Enlarged lymph nodes. COMPARISON: 12/14/2017 ultrasound. 01/10/2018 ultrasound-guided biopsy right submandibular lesion. TECHNIQUE: Linear transducer prado-scale and color Doppler examination of the neck attention to enlarged lymph nodes as indicated by the patient. FINDINGS: No pathologically enlarged lymph nodes are identified within the neck. No mass or abnormal fluid collection is identified. Within the right supraclavicular region there is a lymph node measuring 1.4 x 0.9 x 1.1 cm with slitlike hilum, and rounded morphology, most likely a reactive lymph node. US/US soft tiss head and/or neck IMPRESSION: Probable reactive 0.9 cm short axis lymph node in the right supraclavicular region. Electronically signed by: John Anaya MD 02/20/2025 02:05 PM EDT
--- OUTSIDE RECORDS SUMMARY | 2025-02-20 14:23 | XMS_ITS | Clinical Summary ---
Author Organization [facility] Facility Address [address] [address] Care Team Providers Care Machine Maintenance Mechanic Name Role Phone Checo Lin Primary Care Provider [phone] Social History Tobacco Use Types Packs/Day Years Used Date Smoking Tobacco: Never Assessed Comments Unknown Sex and Gender Information Value Date Recorded Sex Assigned at Not on file Legal Sex Female 8:52 AM EDT Gender Identity Not on file Sexual Orientation Not on file Plan of Treatment Health Maintenance Due Date Last Done Comments Influenza Vaccine (#1) 2025 , 05/05/2016 Pneumococcal Vaccine: 50+ Years Completed 07/16/2016, 2015 Hepatitis B Vaccine Aged Out No longe r eligible based on patient's age to complete this topic Insurance Medicare [facility] Medicare [facility] Care Teams Machine Maintenance Mechanic Relationship Specialty Start Date End Date Checo Lin DO [address] [place] [address] PCP - General Internal Medicine 09/30/22
--- OUTSIDE RECORDS SUMMARY | 2025-02-20 14:23 | XMS_ITS | Encounter Summary ---
Author Organization [facility] Address [address] [facility] [address] [place] [address] Phone Care Team Providers Care Scanner Operator Name Role Phone Checo Lin Primary Care Provider [phone] Encounter Details Date Type Department Care Team (Latest Contact Info) Description 04/24/2017 Ancillary Orders [facility] [address] [facility] [address], [address] [place] [address] Wai Luevano MD [address] [place] [address] [email or web address] Diagnosis unknown Social History Tobacco Use Types Packs/Day Years Used Date Smoking Tobacco: Never Assessed Comments Unknown Sex and Gender Information Value Date Recorded Sex Assigned at Female 06/11/2022 2:08 PM EST Legal Sex Female 10:12 PM EDT Gender Identity Female 06/11/2022 2:08 PM EST Sexual Orientation Straight 06/11/2022 2: 08 PM EST documented as of this encounter Plan of Treatment Not on file documented as of this encounter Visit Diagnoses Diagnosis Diagnosis unknown documented in this encounter Additional Health Concerns Infection Onset Date Last Indicated Resolved Time CoV-Risk 06/11/2022 06/11/2022 06/11/2022 4:03 PM EST CoV-Exposed Comment:Positive COVID-19 06/11/2022 06/11/2022 06/11/2022 4:0 3 PM EST COVID-19 06/11/2022 06/11/2022 07/02/2022 1:21 AM EST documented as of this encounter Care Teams Scanner Operator Relationship Specialty Start Date End Date Checo Lin DO [email or web address] PCP - General 04/19/17 documented as of this encounter Additional Source Comments The information contained in this document represents components of the legal health record. It is not the complete legal health record.[facility]
== END 2025-02-20 13:15 | disposition home or self-care (01) ==
LOC: HO.US 13:14
PROVIDERS: PCP Internal Medicine; Visit Provider Physician Assistant
DX: R59.1 Generalized enlarged lymph nodes (principal)
CPT/HCPCS: 76536

== ENCOUNTER → 2025-02-20 13:23 | Outpatient (BNV) | payer MEDICARE, OTHER, SELFPAY | PROVIDERS: PCP Internal Medicine; Visit Provider Radiology Diagnostic Radiology | DX: R59.0 Localized enlarged lymph nodes (principal) | CPT/HCPCS: 76536 ==

== ENCOUNTER 2025-05-22 08:21 | Outpatient (AMB) | payer MEDICARE, OTHER, SELFPAY ==
--- NOTE | 2025-05-22 08:33 | MHC.OFFVIS ---
Vital Signs 05/22/25 08:35 Height 5 ft 4 in Weight 144 lb 9.972 oz BMI 24.8 BP 100/64 Blood Pressure Location Lt brachial Position Sitting Pulse 77 Pulse Source Monitor Intake Visit Reasons: 6 mth f/up Director Of Direct Marketing Required: No Accompanied by: Self / Same As Patient Allergies No Known Drug Allergies Allergy (Verified 05/18/24 10:24) none Medication List - Last Reconciled 05/22/25 by Gagan Barnard MD acetaminophen 500 mg PO Q6H PRN apixaban (Eliquis) 5 mg PO BID metoprolol succinate ER 25 mg PO DAILY valsartan 80 mg PO DAILY HPI Comments Details: Rose comes for follow-up. Patient complains of exertional shortness of breath climbing a flight of stairs. Denies any recent bleeding issues including dark stools. No orthopnea, PND, leg edema. Has had limited exercise activity due to recent illness with his significant other. She denies any prolonged palpitation irregular heartbeat. No lightheadedness, syncope. Taking all her medications. No exertional chest pain. PENDING SALE TO [facility] Medical History Paroxysmal atrial fibrillation HTN (hypertension) Surgical History History of appendectomy History of hysterectomy S/P TAVR (transcatheter aortic valve replacement) Family History Mother No problems noted. Father Bladder cancer Daughter Autoimmune disease Social History Household Members: Spouse Housing: House Do you presently have visiting nurse or other home services: No Alcohol intake: current Alcohol intake frequency: holidays/special occasions only Alcohol type: wine and hard liquor Comment: pt refuses high fall prevention Patient Tobacco Use Status: Never used Tobacco Years Smoked: 10 +/- Substance Use Type: Marijuana service: No Current occupational status: retired Review of Systems Const Denies chills, Denies fatigue, Denies fever(s), Denies frequent falls, Denies weakness, Denies weight gain and Denies weight loss ENT Denies dizziness Card Denies chest pain, Denies leg edema, Denies lightheadedness, Denies palpitations, Denies dyspnea and Denies dyspnea on exertion Resp Denies cough, Denies dyspnea and Denies dyspnea on exertion GI Denies hematochezia Musc Denies abnormal gait, Denies muscle weakness, Denies numbness, Denies radiating pain into limb and Denies tingling Neuro Denies Abnormal speech present, Denies abnormal gait, Denies dizziness, Denies frequent falls, Denies numbness, Denies tingling and Denies weakness Endo Denies fatigue and Denies palpitations Physical Exam Vital Signs: Last Vital Signs Pulse 77 05/22/25 08:35 BP 100/64 05/22/25 08:35 BMI result Body Mass Index 24.8 Const General: cooperative, comfortable, no acute distress, well developed, alert, awake, Physically active and well groomed Nutritional Appearance: average body habitus and well nourished Orientation/consciousness: patient oriented x3 Limitations: no limitations Neck Neck: Yes trachea midline, Yes supple and Yes no JVD Chest Chest palpation & inspection: normal inspection of the chest Resp Effort & Inspection: normal respiratory effort Auscultation: clear to auscultation bilaterally Cardio Jugular venous distension: no JVD Palpation: normal PMI Rate: regular rate Rhythm: abnormal rhythm with ectopic beats Heart sounds: S1 normal heart sound present, S2 normal heart sound present and Murmur heart sound present systolic early GI Auscultation: normal bowel sounds Skin General skin exam: no rashes or lesions noted Neuro General: patient oriented x3 and no focal motor deficits Speech: No Abnormal speech present Extrem General: Yes no clubbing, cyanosis or edema Office Procedures EKG Details: EKGs shows normal sinus rhythm with intraventricular conduction delay with left bundle-branch morphology 53163-[id number], Complete Assessment & Plan Assessment & Plan (1) S/P TAVR (transcatheter aortic valve replacement): Comment: 26 mm [employer], 12/09/2020 Code(s): Z95.2 - Presence of prosthetic heart valve Category: Surgical Plan: Status post transcatheter aortic valve replacement for severe aortic stenosis clinically working well. Last echocardiogram was within normal limits. Will follow-up echocardiogram 6 months time. Continue full oral anticoagulation with apixaban. SBE prophylaxis as per ACC/aha guidelines. (2) Cardiomyopathy: Code(s): I42.9 - Cardiomyopathy, unspecified Category: Medical Plan: Mild cardiomyopathy without overt signs of congestive heart failure. This is most likely probably related to conduction abnormality. She has symptoms exertional shortness of breath which are probably multifactorial related to aging, deconditioning as well as cardiomyopathy process. Continue to participate in regular physical activity. Will check for anemia as well as antiplatelet BNP. Follow-up echocardiogram in 6 months time. (3) Paroxysmal atrial fibrillation: Code(s): I48.0 - Paroxysmal atrial fibrillation Category: Medical Plan: Paroxysmal atrial fibrillation remained suppressed. Continue current metoprolol therapy. Avoidance of stimulants was discussed. Stress mitigation strategies were discussed. Currently on full oral anticoagulation with Eliquis 5 mg b.i.d.. Semi annual renal function test should be pursued. Will follow up in the clinic in 6 months time, sooner PRN. Thank you for allowing me to partake in her care Orders: Orders Basic Metabolic Panel Today I48.0 - Paroxysmal atrial fibrillation Complete Blood Count no Diff Today I48.0 - Paroxysmal atrial fibrillation NT Pro B Type Natriuretic Pept Today I48.0 - Paroxysmal atrial fibrillation Medications: Resumed metoprolol succinate ER 25 mg PO DAILY 90 tabs 3RF Coding Level of Care Code Est Pt Level 4 (49971) Complex EM visit Add On G2211 Diagnoses S/P TAVR (transcatheter aortic valve replacement) Z95.2 Cardiomyopathy I42.9 Paroxysmal atrial fibrillation I48.0 CPT Codes EKG - CPT: 24005-Xxarfkrhsvgzobwwq, Complete ([id number])
[2025-05-22 08:35] VITALS: BP 100/64; PULSE 77; BMI 24.8
== END 2025-05-22 08:48 | disposition home or self-care (01) ==
LOC: HO.HCS 08:21
PROVIDERS: PCP Internal Medicine; Visit Provider Internal Medicine Cardiovascular Disease
DX: Z95.2 Presence of prosthetic heart valve (principal); I42.9 Cardiomyopathy, unspecified; I48.0 Paroxysmal atrial fibrillation
CPT/HCPCS: 93010; 99214; G2211

== ENCOUNTER 2025-05-22 08:21 | Outpatient (REF) | payer MEDICARE, OTHER, SELFPAY ==
[2025-05-22 09:43] LABS: Hematocrit 42.5 % (37.0-47.0); Hemoglobin 13.7 g/dl (12.0-16.0); Mean Corpuscular HGB Conc 32.2 g/dl (31.0-35.0); Mean Corpuscular Hemoglobin 30.2 pg (27.0-33.0); Mean Corpuscular Volume 93.6 fL (80.0-98.0); NRBC Abs Auto 0.000 X10*3/uL (0.0-0.012); NRBC Pct Auto 0.0 /100WBC (0.0-0.2); Platelet Count 225 X10*3/uL (160-400); Red Blood Count 4.54 X10*6/uL (4.20-5.50); White Blood Count 9.6 X10*3/uL (4.8-10.8)
[2025-05-22 10:10] LABS: Anion Gap 12 (12-20); Blood Urea Nitrogen 14 mg/dL (9-16); Calcium 9.6 mg/dL (8.4-10.2); Carbon Dioxide 27 mmol/L (22-29); Chloride 101 mmol/L (96-108); Estimated Glomerular Filt Rate > 60; Potassium 4.5 mmol/L (3.3-5.1); Sodium 135 mmol/L (135-145)
--- OUTSIDE RECORDS SUMMARY | 2025-05-22 18:33 | XMS_ITS | Encounter Summary ---
Author Organization [facility] Address [address] [facility] [address] [place] [address] Phone Care Team Providers Care Advertising Display Rotator Name Role Phone Checo Lin Primary Care Provider [phone] Encounter Details Date Type Department Care Team (Late st Contact Info) Description 04/24/2017 Ancillary [facility] [address] [place] [address] Wai Luevano MD [address] [place] [address] [email or web address] Social History Tobacco Use Types Packs/Day Years [...] documented as of this encounter Visit Diagnoses Not on filedocumented in this encounter Additional Health Concerns Infection Onset Date Last Indicated Resolved Time CoV-Risk 06/11/2022 06/11/2022 06/11/2022 4:0 3 PM EST CoV-Exposed Comment:Positive COVID-19 06/11/2022 06/11/2022 06/11/2022 4:0 3 PM EST COVID-19 06/11/2022 06/11/2022 07/02/2022 1:21 AM EST documented as of this encounter Care Teams Advertising Display Rotator Relationship Specialty Start Date End Date Checo Lin DO [email or web address] PCP - General 04/19/17 documented as of this encounter Additional Source Comments The information contained in this document represents components of the legal health record. It is not the complete legal health record.[facility]
--- OUTSIDE RECORDS SUMMARY | 2025-05-22 18:33 | XMS_ITS | Encounter Summary ---
Author Organization [facility] Address [address] [employer] [facility] [address] [place] [address] Phone Care Team Providers Care Nitrogen Operator Name Role Phone Checo Lin Primary Care Provider [phone] Reason for Referral * Outpatient Procedure - Closed Specialty Diagnoses / Procedures Referred By Contcarl t Referred To Contact Radiology Diagnoses Dizziness and giddiness Procedures US Carotid Duplex Complete (Bilateral) Lanny Arana PA Phone: tel: fax: Referral ID Status Reason Start Date Expiration Date Visits Re quested Visits Authorized [id number] Closed 02/20/2022 02/20/2023 1 1 Encounter Details Date Type Department Care Team (Latest Contact Info) Description 02/20/2022 Transcribe Orders Virtual Department [address] [place] [address] Lanny Arana PA [address] [place] [address] [place] [address] Dizziness and giddiness (Primary Dx) Social History Tobacco Use Types Packs/Day Years Used Date Smoking Tobacco: Former Smokeless Tobacco: Never Comments:in her 20s Alcohol Use Standard Drinks/Week Comments Yes 0 (1 standard drink = 0.6 oz pur e alcohol) nightly cocktail Comments Unknown Sex and Gender Information Value Date Recorded Sex Assigned at Female 06/11/2022 2:08 PM EST Legal Sex Female 10:12 PM EDT Gender Identity Female 06/11/2022 2:08 PM EST Sexual Orientation Straight 06/11/2022 2: 08 PM EST documented as of this encounter Plan of Treatment Not on file documented as of this encounter Results * US Carotid Duplex Complete (Bilateral) (03/13/2022 12:06 PM EDT) Anatomical Region Laterality Modality Heart, Thoracic Vasculature, Neck Ultrasound 03/13/2022 1:00 PM EDT Impressions 03/13/2022 1:03 PM EDT Mild bilateral carotid plaquing without hemodynamically significant ICA stenoses detected. POS - [id number] Narrative 03/13/2022 1:03 PM EDT COMPARISON: None CAROTID ULTRASOUND FINDINGS: Color duplex Doppler evaluation the carotid arteries was performed. On the right is small amount of mixed calcified/noncalcified plaque present in the bulb. Peak systolic velocity in the distal common carotid artery was measured at 0.79 m/s and within the internal carotid artery at 0.95 m/s corresponding to a ratio of 1.20. No elevated diastolic velocities or significant ICA spectral broadening apparent. On the left there is a small amount of mixed plaque present in the bulb. Peak systolic velocity in the distal CCA was measured at 0.85 m/s and in the ICA at 0.88 m/s corresponding to a ratio of 1.02. No significant spectral broadening was apparent. The above measurements are consistent with the presence of less than 50% ICA stenoses. Antegrade flow was demonstrated in both vertebral arteries. Any stenosis measurement is relative to the distal ICA diameters. Procedure Note Darrick Haro MD - 03/13/2022 COMPARISON: None CAROTID ULTRASOUND FINDINGS: Color duplex Doppler evaluation the carotid arteries was performed. On the right is small amount of mixed calcified/noncalcified plaquepresent in the bulb. Peak systolic velocity in the distal common carotidartery was measured at 0.79 m/s and within the internal carotid artery at0.95 m/s corresponding to a ratio of 1.20. No elevated diastolicvelocities or significant ICA spectral broadening apparent. On the left there is a small amount of mixed plaque present in the bulb.Peak systolic velocity in the distal CCA was measured at 0.85 m/s and inthe ICA at 0.88 m/s corresponding to a ratio of 1.02. No significantspectral broadening was apparent. The above measurements are consistent with the presence of less than 50%ICA stenoses. Antegrade flow was demonstrated in both vertebralarteries. Any stenosis measurement is relative to the distal ICA diameters. IMPRESSION: Mild bilateral carotid plaquing without hemodynamically significant ICAstenoses detected. POS - [id number] us Lanny CHA CV US NEUROVASCULAR Final R esult documented in this encounter Visit Diagnoses Diagnosis Dizziness and giddiness- Primary Dizziness and giddiness documented in this encounter Additional Health Concerns Infection Onset Date Last Indicated Resolved Time CoV-Risk 06/11/2022 06/11/2022 06/11/2022 4:03 PM EST CoV-Exposed Comment:Positive COVID-19 06/11/2022 06/11/2022 06/11/2022 4:0 3 PM EST COVID-19 06/11/2022 06/11/2022 07/02/2022 1:21 AM EST Assessment Noted Time PHQ-9 Depression Total Score: 0 01/10/20 21 12:56 PM EDT documented as of this encounter Care Teams Nitrogen Operator Relationship Specialty Start Date End Date Checo Lin DO [email or web address] PCP - General 04/19/17 documented as of this encounter Additional Source Comments The information contained in this document represents components of the legal health record. It is not the complete legal health record.[facility]
--- OUTSIDE RECORDS SUMMARY | 2025-05-22 18:33 | XMS_ITS | Encounter Summary ---
Author Organization [facility] Address [address] [facility] [address] [place] [address] Phone Care Team Providers Care Software Quality Assurance Engineer Name Role Phone Checo Lin DO Primary Care Provider [phone] Encounter Details Date Type Department Care Team (Latest Contact Info) Description 07/30/2017 Ancillary Orders [facility] [address] [facility] 3rd Floor, [address] [place] [address] Wai Luevano MD [address] [place] [address] [email or web address] Nonrheumatic aortic valve stenosis Social History Tobacco Use Types Packs/Day Years [...] documented as of this encounter Results * TTE COMPREHENSIVE (07/30/2017 8:40 AM EST) Anatomical Region Laterality Modality Heart Ultrasound us Wai Luevano MD CV ECHO ORDERABLES Final Result documented in this encounter Visit Diagnoses Diagnosis Nonrheumatic aortic valve stenosis documented in this encounter Additional Health Concerns Infection Onset Date Last Indicated Resolved Time CoV-Risk 06/11/2022 06/11/2022 06/11/2022 4:03 PM EST CoV-Exposed Comment:Positive COVID-19 06/11/2022 06/11/2022 06/11/2022 4:0 3 PM EST COVID-19 06/11/2022 06/11/2022 07/02/2022 1:21 AM EST documented as of this encounter Care Teams Software Quality Assurance Engineer Relationship Specialty Start Date End Date Checo Lin DO [email or web address] PCP - General 04/19/17 documented as of this encounter Additional Source Comments The information contained in this document represents components of the legal health record. It is not the complete legal health record.[facility]
--- OUTSIDE RECORDS SUMMARY | 2025-05-22 18:33 | XMS_ITS | Encounter Summary ---
Author Organization [facility] Address [address] [employer] [facility] [address] [place] [address] Phone Care Team Providers Care After School Teacher Name Role Phone Checo Lin Primary Care Provider [phone] Encounter Details Date Type Department Care Team (Late st Contact Info) Description 12/15/2024 Ancillary Orders [facility], X-Ray - [address] [address] Amie Tijerina PA [address] [place] [address] [email or web address] compression fracture of unspecified thoracic vertebra, initial encounter for closed fracture (Primary Dx) Social History Tobacco Use Types Packs/Day Years Used Date Smoking Tobacco: Former Smokeless Tobacco: Never Comments:in her 20s Alcohol Use Standard Drinks/Week Comments Yes 0 (1 standard drink = 0.6 oz pur e alcohol) nightly cocktail Education Answer Date Recorded Are you interested in more education? Not on shala e 10/30/2022 Are you concerned about learning? Not on file 10/30/2022 No 10/30/2022 No 10/30/2022 Digital Access Answer Date Recorded No 11/28/2022 No 11/28/2022 Reliable internet access at home? Not on file 11/28/2022 Device with a working camera? Not on file Comments Unknown Sex and Gender Information Value Date Recorded Sex Assigned at Female 06/11/2022 2:08 PM EST Legal Sex Female 10:12 PM EDT Gender Identity Female 06/11/2022 2:08 PM EST Sexual Orientation Straight 06/11/2022 2: 08 PM EST documented as of this encounter Plan of Treatment Not on file documented as of this encounter Results * XR THORACIC SPINE 2 VIEW (12/15/2024 10:22 AM EDT) Anatomical Region Laterality Modality T-spine Computed Radiogr aphy 12/16/2024 1:06 PM EDT Impressions 12/16/2024 1:08 PM EDT No evidence of acute compression fracture. Multilevel degenerative changes. Narrative 12/16/2024 1:08 PM EDT XR THORACIC SPINE 2 VIEW Referring clinician's provided indication for this examination in [facility]: Pain COMPARISON: CT CHEST WITH CONTRAST FINDINGS: Multilevel moderate endplate degenerative change and facet arthropathy in the thoracic spine. There are prominent anterior osteophytes at multiple levels without definite multilevel ankylosis. No compression fracture. Vascular stent overlies the mediastinum. Vascular atherosclerotic calcifications are present. Procedure Note Diogo Mast MD - 12/16/2024 XR THORACIC SPINE 2 VIEW Referring clinician's provided indication for this examination in Epic:Pain COMPARISON: CT CHEST WITH CONTRAST FINDINGS: Multilevel moderate endplate degenerative change and facet arthropathy inthe thoracic spine. There are prominent anterior osteophytes at multiplelevels without definite multilevel ankylosis. No compression fracture.Vascular stent overlies the mediastinum. Vascular atheroscleroticcalcifications are present. IMPRESSION: No evidence of acute compression fracture. Multilevel degenerativechanges. Amie CHA IMG XR SPINE Final Result documented in this encounter Visit Diagnoses Diagnosis Wedge compression fracture of unspecified thoracic vertebra, initial encounter for closed fracture- Primary Wedge compression fracture of unspecified thoracic vertebra, initial encounter for closed fracture documented in this encounter Additional Health Concerns Assessment Noted Time PHQ-9 Depression Total Score: 0 01/10/20 21 12:56 PM EDT documented as of this encounter Care Teams After School Teacher Relationship Specialty Start Date End Date Checo Lin DO [email or web address] PCP - General 04/19/17 documented as of this encounter Additional Source Comments The information contained in this document represents components of the legal health record. It is not the complete legal health record.[facility]
--- OUTSIDE RECORDS SUMMARY | 2025-05-22 18:33 | XMS_ITS | Encounter Summary ---
Author Organization [facility] Address [address] [facility] [address] [place] [address] Phone Care Team Providers Care Painter Interior Finish Name Role Phone Checo Lin DO Primary Care Provider [phone] Encounter Details Date Type Department Care Team ([facility] st Contact Info) Description 02/01/2018 Procedure Pass [facility] [address] [place] [address] Social History Tobacco Use Types Packs/Day Years [...] documented as of this encounter Care Teams Painter Interior Finish Relationship Specialty Start Date End Date Checo Lin DO [email or web address] PCP - General 04/19/17 documented as of this encounter Additional Source Comments The information contained in this document represents components of the legal health record. It is not the complete legal health record.[facility]
--- OUTSIDE RECORDS SUMMARY | 2025-05-22 18:33 | XMS_ITS | Encounter Summary ---
Author Organization [facility] Address [address] [employer] [facility] [address] [place] [address] Phone Care Team Providers Care Special Education Resource Room Teacher Name Role Phone Checo Lin Primary Care Provider [phone] Encounter Details Date Type Department Care Team (Latest Contact Info) Description 04/24/2017 Ancillary Orders [facility] [address] [facility] 3rd Floor, [address] [place] [address] Wai Luevano MD [address] [place] [address] [email or web address] Diagnosis unknown Social History Tobacco Use Types [...] documented as of this encounter Care Teams Special Education Resource Room Teacher Relationship Specialty Start Date End Date Checo Lin DO [email or web address] PCP - General 04/19/17 documented as of this encounter Additional Source Comments The information contained in this document represents components of the legal health record. It is not the complete legal health record.[facility]
--- OUTSIDE RECORDS SUMMARY | 2025-05-22 18:34 | XMS_ITS | Encounter Summary ---
Author Organization [facility] Address [address] [employer] [facility] [address] [place] [address] Phone Care Team Providers Care Floor Assembler Name Role Phone Checo Lin Primary Care Provider [phone] Encounter Details Date Type Department Care Team ([facility] st Contact Info) Description 01/23/2022 Procedure Pass [facility] [address] [place] [address] Social History Tobacco Use Types Packs/Day Years [...] Time PHQ-9 Depression Total Score: 0 01/10/20 12:56 PM EDT documented as of this encounter Care Teams Floor Assembler Relationship Specialty Start Date End Date Checo Lin DO [email or web address] PCP - General 04/19/17 documented as of this encounter Additional Source Comments The information contained in this document represents components of the legal health record. It is not the complete legal health record.[facility]
--- OUTSIDE RECORDS SUMMARY | 2025-05-22 18:34 | XMS_ITS | Encounter Summary ---
Author Organization [facility] Address [address] [employer] [facility] [address] [place] [address] Phone Care Team Providers Care Traffic Superintendent Name Role Phone Checo Lin Primary Care Provider [phone] Encounter Details Date Type Department Care Team (Late st Contact Info) Description 03/01/2018 Ancillary Orders Virtual Department [address] [place] [address] Rhoda [place], FOLDER AND NOTCHER [address] [place] [address] [email or web address] Chest pain, unspecified type Social History Tobacco Use Types Packs/Day Years [...] documented as of this encounter Results * Stress Test Exercise (03/08/2018 11:05 AM EDT) Max BP Systolic 160 mmHg [facility] Max BP Diastolic 80 mmHg [facility] Max HR 146 BPM [facility] Resting HR 65 BPM [facility] Resting BP Systolic 140 mmHg [facility] Resting BP Diastolic 70 mmHg [facility] Peak METS 7.0 METS [facility] Peak HR 146 BPM [facility] Anatomical Region Laterality Modality Heart Other 03/08/2018 10:3 2 AM EDT 03/08/2018 11:05 AM EDT Narrative 03/21/2018 10:13 AM EDT Response to Stress The patient exercised for minutes seconds, achieving 7.0 METS at peak exercise. Baseline blood pressure was 140/70 mmHg, and baseline heart rate was 65 bpm. The patient achieved a peak heart rate of 146 bpm, which is% of their maximum predicted heart rate. Exercise Stress Test Report: Reason for termination: fatigue, SOB, chest tightness Summary: Resting ECG: SR HR 71 BPM Functional capacity: good Heart rate response to exercise: achieving target HR early in exercise, metoprolol on hold Blood pressure response to exercise: baseline normotensive - appropriate response to exercise Chest pain: none Arrhythmias: none Conclusion: Patient exercised for 4:31 minutes on a standard Bryan protocol achieving 102% MPHR and 7 METS. Test terminated due to fatigue, SOB, chest tightness. Summary: 1. EKG: STchanges in II, III during peak exercise, resolving in early recovery; and horizontal ST in V5-V6 in early recovery. These EKG changes could be suggestive of ischemia. 2. Symptoms: Chest tightness with associated SOB at peak exercise, resolving by 4 minutes into recovery. 3. Exercise physiology: Normal heart rate and BP response to exercise. Max HR 146 BPM with normal HR recovery. Max BP 160/80 from baseline BP of 140/70. 02 sat 96% and stable throughout the procedure. Good functional capacity for age noted. 4. Arrhythmia: occasional PVC, occasional PACs Conclusion: Abnormal ETT. EKG changes that could be suggestive of ischemia along with chest tightness at peak exercise. Vital signs at baseline at time of discharge from the lab. EKG reviewed with Dr. Arboleda. Recommend treadmill nuclear stress test for further evaluation. PCP office notified. Dayanna Scanlon, VOCATIONAL REHABILITATION SUPERVISOR, MPH . Rhoda [place] CNP CV STRESS ORDERABLES Final Result documented in this encounter Visit Diagnoses Diagnosis Chest pain, unspecified type Chest pain, unspecified type documented in this encounter Additional Health Concerns Infection Onset Date Last Indicated Resolved Time CoV-Risk 06/11/2022 06/11/2022 06/11/2022 4:03 PM EST CoV-Exposed Comment:Positive COVID-19 06/11/2022 06/11/2022 06/11/2022 4:0 3 PM EST COVID-19 06/11/2022 06/11/2022 07/02/2022 1:21 AM EST documented as of this encounter Care Teams Traffic Superintendent Relationship Specialty Start Date End Date Checo Lin DO [email or web address] PCP - General 04/19/17 documented as of this encounter Additional Source Comments The information contained in this document represents components of the legal health record. It is not the complete legal health record.[facility]
--- OUTSIDE RECORDS SUMMARY | 2025-05-22 18:34 | XMS_ITS | Encounter Summary ---
Author Organization [facility] Address [address] [facility] [address] [place] [address] Phone Care Team Providers Care Welt Sewer Name Role Phone Checo Lin DO Primary Care Provider [phone] Encounter Details Date Type Department Care Team (Late st Contact Info) Description 06/22/2020 Procedure Pass [facility] [address] [place] [address] Social History Tobacco Use Types Packs/Day Years [...] documented as of this encounter Care Teams Welt Sewer Relationship Specialty Start Date End Date Checo Lin DO [email or web address] PCP - General 04/19/17 documented as of this encounter Additional Source Comments The information contained in this document represents components of the legal health record. It is not the complete legal health record.[facility]
--- OUTSIDE RECORDS SUMMARY | 2025-05-22 18:34 | XMS_ITS | Encounter Summary ---
Author Organization [facility] Address [address] [facility] [address] [place] [address] Phone Care Team Providers Care Development Lead Name Role Phone Checo Lin Primary Care Provider [phone] Reason for Referral * MRI/CAT Scan - Closed Specialty Diagnoses / Procedures Referred By Crystal wallace Referred To Contact Radiology Diagnoses Pericardial pain Procedures NC Myocardial Perfusion Pharmacologic Stress Multiple Rhoda [place] CNP Phone: tel: fax: [email or web address] Referral ID Status Reason Start Date Expiration Date Visits Re quested Visits Authorized [id number] Closed 03/11/2018 05/09/2018 1 1 Encounter Details Date Type Department Care Team (Late st Contact Info) Description 03/09/2018 Ancillary Orders Virtual Department [address] [place] [address] Rhoda [place] CNP [address] [place] [address] Pericardial pain Social History Tobacco Use Types Packs/Day Years [...] documented as of this encounter Results * NC Myocardial Perfusion Pharmacologic Stress Multiple (03/14/2018 11:03 AM EDT) Anatomical Region Laterality Modality Heart, Vascular Nuclear Medicine 03/14/2018 11:4 9 AM EDT Impressions 03/14/2018 4:16 PM EDT No evidence of ischemia or infarction. Ejection fraction = 67% POS [id number] Narrative 03/14/2018 4:16 PM EDT EXAM: NC MYOCARDIAL PERFUSION PHARMACOLOGIC STRESS MULTIPLE HISTORY : Pericardial pain COMPARISON: May 24, 2015 TECHNIQUE: Patient exercised for 5:47 minutes on a Bryan protocol achieving 7 METS. Test terminated due to chest tightness. Maximal heart rate was 148 (103% MPHR). Images of the heart obtained in the short, horizontal and vertical long axes. DOSE: Rest dose 10.3T c-99m sestamibi, Stress dose 34.6 Tc-99m sestamibi FINDINGS: Previously seen artifact in the right anteroseptal and apical septal regions is no longer seen on today's study. No evidence of fixed or reversible defects. No evidence of heart wall motion abnormalities. Ejection fraction appears preserved, calculated at 67%. T.I.D. ratio indeterminant at 1.04 Procedure Note Ovi Perkins MD - 03/14/2018 EXAM: NC MYOCARDIAL PERFUSION PHARMACOLOGIC STRESS MULTIPLE HISTORY : Pericardial pain COMPARISON: May 24, 2015 TECHNIQUE: Patient exercised for 5:47 minutes on a Bryan protocolachieving 7 METS. Test terminated due to chest tightness. Maximal heartrate was 148 (103% MPHR). Images of the heart obtained in the short,horizontal and vertical long axes. DOSE: Rest dose 10.3T c-99m sestamibi, Stress dose 34.6 Tc-99m sestamibi FINDINGS: Previously seen artifact in the right anteroseptal and apical septalregions is no longer seen on today's study. No evidence of fixed or reversible defects. No evidence of heart wallmotion abnormalities. Ejection fraction appears preserved, calculated at 67%. T.I.D. ratio indeterminant at 1.04 IMPRESSION: No evidence of ischemia or infarction. Ejection fraction = 67% POS [id number] Rhoda Villa LIQUID CHLORINE OPERATOR CV NM CARDIAC Final Resul t documented in this encounter Visit Diagnoses Diagnosis Pericardial pain Pericardial pain documented in this encounter Additional Health Concerns Infection Onset Date Last Indicated Resolved Time CoV-Risk 06/11/2022 06/11/2022 06/11/2022 4:03 PM EST CoV-Exposed Comment:Positive COVID-19 06/11/2022 06/11/2022 06/11/2022 4:0 3 PM EST COVID-19 06/11/2022 06/11/2022 07/02/2022 1:21 AM EST documented as of this encounter Care Teams Development Lead Relationship Specialty Start Date End Date Checo Lin DO [email or web address] PCP - General 04/19/17 documented as of this encounter Additional Source Comments The information contained in this document represents components of the legal health record. It is not the complete legal health record.[facility]
--- OUTSIDE RECORDS SUMMARY | 2025-05-22 18:35 | XMS_ITS | Encounter Summary ---
Author Organization [facility] Address [address] [employer] [facility] [address] [place] [address] Phone Care Team Providers Care Sticker On Name Role Phone Checo Lin Primary Care Provider [phone] Encounter Details Date Type Department Care Team (Late st Contact Info) Description 03/14/2018 Ancillary Orders Virtual Department 30 [place] [address] Rhoda Villa, JENNIFER [address] [place] [address] [email or web address] Pericardial pain Social History Tobacco Use Types [...] as of this encounter Results * NC Stress Result for Nuclear Stress Test (03/14/2018 10:37 AM EDT) Max BP Systolic 190 mmHg [facility] Max BP Diastolic 80 mmHg [facility] Max HR 148 BPM [facility] Resting HR 67 BPM [facility] Resting BP Systolic 162 mmHg [facility] Resting BP Diastolic 80 mmHg [facility] Peak METS 7.0 METS [facility] Peak HR 148 BPM [facility] Anatomical Region Laterality Modality Heart Other 03/14/2018 9:38 AM EDT 03/14/2018 10:36 AM EDT Narrative 03/14/2018 12:03 PM EDT Response to Stress The patient exercised for minutes seconds, achieving 7.0 METS at peak exercise. Baseline blood pressure was 162/80 mmHg, and baseline heart rate was 67 bpm. The patient achieved a peak heart rate of 148 bpm, which is% of their maximum predicted heart rate. Pt exercised for 5:47 minutes on a FERMÍN protocol achieving 7 METS. TEst terminated due to chest tightness. Max heart rate 148 (103% MPHR). 1. Baseline EKG - normal sinus rhythm. During exercise, there were 1 mm horizontal to upsloping ST depressions in the inferolateral leads. EKGs improved in early recovery. 2. Pt had 7-8/10 chest tightness at peak exercise that resolved spontaneously by 3 min into recovery. 3. BP at baseline was 162/80, up to 170/70 at peak exercise and 140/80 on DC from stress lab. Normal functional capacity for age. 4. Occasional PVCs noted, one ventricular pair. Few PACs. Conclusion - abnormal stress test with EKG change and symptoms suggestive of ischemia. Nuclear images pending and will be reported separately. Yun Chun MANAGER INVESTIGATIONS with Dr Luevano . us Rhoda Villa PRODUCT LINE MANAGER CV NM CARDIAC Final Resul t documented in this encounter Visit Diagnoses Diagnosis Pericardial pain Pericardial pain documented in this encounter Additional Health Concerns Infection Onset Date Last Indicated Resolved Time CoV-Risk 06/11/2022 06/11/2022 06/11/2022 4:03 PM EST CoV-Exposed Comment:Positive COVID-19 06/11/2022 06/11/2022 06/11/2022 4:0 3 PM EST COVID-19 06/11/2022 06/11/2022 07/02/2022 1:21 AM EST documented as of this encounter Care Teams Sticker On Relationship Specialty Start Date End Date Checo Lin DO [phone] (work) [email or web address] PCP - General 04/19/17 documented as of this encounter Additional Source Comments The information contained in this document represents components of the legal health record. It is not the complete legal health record.[facility]
--- OUTSIDE RECORDS SUMMARY | 2025-05-22 18:35 | XMS_ITS | Encounter Summary ---
Author Organization [facility] Address [address] [facility] [address] [place] [address] Phone Care Team Providers Care Carpet Repairer Name Role Phone Checo Lin DO Primary Care Provider [phone] Encounter Details Date Type Department Care Team ([facility] st Contact Info) Description 03/09/2018 Ancillary Orders Virtual Department 30 [place] [address] Checo Lin DO [address] [facility] [place] [address] [email or web address] Social History Tobacco Use Types Packs/Day Years [...] documented as of this encounter Care Teams Carpet Repairer Relationship Specialty Start Date End Date TriciaCheco gibbons DO Komal [email or web address] PCP - General 04/19/17 documented as of this encounter Additional Source Comments The information contained in this document represents components of the legal health record. It is not the complete legal health record.[facility]
--- OUTSIDE RECORDS SUMMARY | 2025-05-22 18:35 | XMS_ITS | Encounter Summary ---
Author Organization [facility] Address [address] [facility] [address] [place] [address] Phone Care Team Providers Care Rn Postpartum Name Role Phone Checo Lin DO Primary Care Provider [phone] Encounter Details Date Type Department Care Team (Latest Contact Info) Description 11/26/2020 Transcribe Orders Virtual Department 30 [place] [address] Tony Rhodes MD [address] [place] [address] [email or web address] Pre-procedure lab exam (Primary Dx) Social History Tobacco Use Types [...] documented as of this encounter Results * COVID-19 PCR Order (12/06/2020 9:00 AM EDT) COVID-19 Comment [id number] [facility] COVID Testing Status In-house testing being performed [facility] 12/06/2020 9:00 AM EDT 12/06/2020 12:04 PM EDT us Tony Rhodes MD LAB GENERAL ORDERABLES Final Res ult [facility] 30 [place] [address] documented in this encounter Visit Diagnoses Diagnosis Pre-procedure lab exam- Primary Pre-procedural laboratory examination documented in this encounter Additional Health Concerns Infection Onset Date Last Indicated Resolved Time CoV-Risk 06/11/2022 06/11/2022 06/11/2022 4:03 PM EST CoV-Exposed Comment:Positive COVID-19 06/11/2022 06/11/2022 06/11/2022 4:0 3 PM EST COVID-19 06/11/2022 06/11/2022 07/02/2022 1:21 AM EST documented as of this encounter Care Teams Rn Postpartum Relationship Specialty Start Date End Date Checo Lin DO [email or web address] PCP - General 04/19/17 documented as of this encounter Additional Source Comments The information contained in this document represents components of the legal health record. It is not the complete legal health record.[facility]
--- OUTSIDE RECORDS SUMMARY | 2025-05-22 18:36 | XMS_ITS | Encounter Summary ---
Author Organization [facility] Address [address] [address] Phone Care Team Providers Care Seam Stayer Name Role Phone Checo Lin DO Primary Care Provider [phone] Reason for Referral * MRI/CAT Scan - Closed Specialty Diagnoses / Procedures Referred By Contcarl t Referred To Contact Radiology Diagnoses Localized swelling, mass and lump, trunk Mass of chest wall Procedures CT Chest Checo Lin DO Phone: tel: fax: [email or web address] Referral ID Status Reason Start Date Expiration Date Visits Re quested Visits Authorized [id number] Closed 09/19/2019 09/18/2020 1 1 Encounter Details Date Type Department Care Team (Late st Contact Info) Description 09/19/2019 Transcribe Orders Virtual Department 30 [place] [address] Checo Lin DO [address] [place] [address] Localized swelling, mass and lump, trunk (Primary Dx); Mass of chest wall Social History Tobacco Use Types Packs/Day Years [...] documented as of this encounter Results * CT CHEST WITH CONTRAST (12/07/2019 9:21 AM EDT) Anatomical Region Laterality Modality Chest Computed Tomogra phy 12/07/2019 9:35 AM EDT Impressions 12/07/2019 9:42 AM EDT No chest wall or supraclavicular mass, pulmonary mass, or other significant intrathoracic pathology apparent. TOTAL CTDIvol: 5.00 mGy POS - [id number] Narrative 12/07/2019 9:42 AM EDT COMPARISON: None TECHNIQUE: CT chest with IV contrast. Multiplanar reformatted images generated. Automated exposure control utilized. FINDINGS: No acute airspace infiltrate, pulmonary mass, or pleural effusion. Mild dependent-type interstitial opacities are noted in the dorsal aspects of both lower lobes with minimal pleural thickening seen along the margin of the right interlobar fissures. No worrisome parenchymal nodules. No rj bronchiectasis. No endotracheal or mainstem endobronchial nodules. No pathologically enlarged mediastinal or hilar lymph nodes detected. No significant pericardial effusion. Main right and left pulmonary arteries appear to be patent. No supraclavicular mass or axillary lymphadenopathy apparent. No discrete chest wall mass identified. There are degenerative disc changes at the T1-2 level. No acute traumatic or destructive skeletal lesion apparent. No clavicle mass identified. Mild to moderate degenerative changes are present at the right sternoclavicular junction. Adrenal glands are not enlarged. Spleen and visualized portions of the liver and kidneys are grossly unremarkable. Visceral atherosclerotic calcifications are demonstrated.. Procedure Note Baltazar Hermosillo MD - 12/07/2019 COMPARISON: None TECHNIQUE: CT chest with IV contrast. Multiplanar reformatted imagesgenerated. Automated exposure control utilized. FINDINGS: No acute airspace infiltrate, pulmonary mass, or pleural effusion. Milddependent-type interstitial opacities are noted in the dorsal aspects ofboth lower lobes with minimal pleural thickening seen along the margin ofthe right interlobar fissures. No worrisome parenchymal nodules. No frankbronchiectasis. No endotracheal or mainstem endobronchial nodules. No pathologically enlarged mediastinal or hilar lymph nodes detected. Nosignificant pericardial effusion. Main right and left pulmonary arteriesappear to be patent. No supraclavicular mass or axillary lymphadenopathy apparent. No discretechest wall mass identified. There are degenerative disc changes at theT1-2 level. No acute traumatic or destructive skeletal lesion apparent. Noclavicle mass identified. Mild to moderate degenerative changes arepresent at the right sternoclavicular junction. Adrenal glands are not enlarged. Spleen and visualized portions of theliver and kidneys are grossly unremarkable. Visceral atheroscleroticcalcifications are demonstrated.. IMPRESSION: No chest wall or supraclavicular mass, pulmonary mass, or othersignificant intrathoracic pathology apparent. TOTAL CTDIvol: 5.00 mGy POS - [id number] us Checo Lin DO IMG CT CHEST Final Result documented in this encounter Visit Diagnoses Diagnosis Localized swelling, mass and lump, trunk- Primary Mass of chest wall Localized swelling, mass and lump, trunk Mass of chest wall documented in this encounter Additional Health Concerns Infection Onset Date Last Indicated Resolved Time CoV-Risk 06/11/2022 06/11/2022 06/11/2022 4:03 PM EST CoV-Exposed Comment:Positive COVID-19 06/11/2022 06/11/2022 06/11/2022 4:0 3 PM EST COVID-19 06/11/2022 06/11/2022 07/02/2022 1:21 AM EST documented as of this encounter Care Teams Seam Stayer Relationship Specialty Start Date End Date Checo Lin DO [email or web address] PCP - General 04/19/17 documented as of this encounter Additional Source Comments The information contained in this document represents components of the legal health record. It is not the complete legal health record.[facility]
--- OUTSIDE RECORDS SUMMARY | 2025-05-22 18:36 | XMS_ITS | Data Portability ---
Author Organization [place] [facility] Address [address] [place] [phone] Care Team Providers Care Accounts Receivable Bookkeeper Name Role Phone PRANAV CANO Primary Care Provider [phone] Assessment No assessment recorded. Plan of Treatment [...] gram No observ ation record ed. [email or web address] [facility] [address] [facility] [address], [place], [address], 08/03/2024 14:54:39 08/18/19 25 05/01/2024 audio gram No observ ation record ed. [email or web address] Not Available 2024 09:59:28 Result Notes None recorded. Problems Name Problem SNOMED Code Status Onset Date Resolution Date Notes Provider Name and Address Organization Details Recorded Time Mixed conductive and sensorineural hearing loss, bilateral [id number] Active 2024 MARIA INES CASTANEDA MD [address] [place] [address], [phone] [place] - [facility] 15:41:32 Problem Notes None recorded. Procedures Surgical History Date Name Laterality Status Provider Name and Address Organization Details Recorded Time hysterectomy completed MARIA INES CASTANEDA MD [address] [place] [address], [phone], [facility] - [facility] 08/08/2024 08:58:33 replacement of aortic valve completed MARIA INES CASTANEDA MD [address], [phone], [facility] - [facility] 08/08/2024 08:58:40 Imaging Results None recorded. Procedure Notes None recorded. Medical Equipment None [...] Updated DateTime 08/03/2024 162.56 cm 25.6 kg/m2 68077.26 g Ailyn Brooks [place] - [facility] 08/03/2024 14:25:05 Date Recorded Body height Body mass index (BMI) Body weight Provider Name and Address Organization Details Last Updated DateTime 09/21/2024 162.56 cm 25.7 kg/m2 94457.86 g Ailyn Brooks [place] - [facility] 09/21/2024 10:31:27 Social History None recorded. Functional Status None recorded. Mental Status None recorded. Family History Nothing Reported. Medical History Condition Response Hypertension Y Gynecological HistoryNo gynecological history recorded. Obstetrics History GPAL:G 0 P 0 0 0 0 Past Encounters Encounter ID Performer Location Encounter Start Date Encounter Closed Date Diagnosis/Indication Diagnosis SNOMED-CT Code Diagnosis ICD10 Code Diagnosis IMO Codes Diagnosis Note [id number] MARIA INES CASTANEDA MD [facility] on [address] [place] [id number] 08/03/2024 13:48:41 08/03/2024 15:33:31 Mixed conductive and sensorineural hearing loss, bilateral 759889481 H90.6 There are squamous casts bilaterall y, she was very sensitive limiting attempts at removal.I recommende d mineral oil or olive oil a few drops bilaterall y at bedtime until follow up.We discussed the drops would possibly temporaril y worsen blockage sensation but I would expect improvemen t once casts are removed. [id number] MARIA INES CASTANEDA MD [facility] on [address] [place] [id number] 09/21/2024 10:17:43 09/21/2024 10:53:37 Mixed conductive and sensorineural hearing loss, bilateral [id number] H90.6 The squamous casts were completely removed, [...] Mackenzie Member ID Guarantor Name 09/21/2024 2 [facility] Michelle Lai [id number] Michelle Lai 09/21/2024 1 MEDICARE B-[place]: [facility] Michelle Laura Joelle [id number] Michelle Lai Notes Date Note Type Note Provider Name and Address Organization Details Recorded Time 08/03/2024 text/html 84-year-old female presents today for evaluation of hearing loss. She has had evaluation at [facility] in April and prior to that in [...] air-bone gap noted. MARIA INES CASTANEDA MD [address], [phone], [facility] 08/08/2024 09:01:38 09/21/2024 text/html 84-year-old female here today for reassessment of ear blockage. She has been using oil drops since her last visit. She did stop them but has used Debrox in the past week. MARIA INES CASTANEDA MD 100 [facility],[address], [address], [facility] - [facility] 09/21/2024 10:56:05 OBGyn Episode No OBEpisode recorded.
--- OUTSIDE RECORDS SUMMARY | 2025-05-22 18:36 | XMS_ITS | Encounter Summary ---
Author Organization [facility] Address [address] [facility] [address] [place] [address] Phone Care Team Providers Care Help Desk Associate Name Role Phone Checo Lin DO Primary Care Provider [phone] Encounter Details Date Type Department Care Team (Late st Contact Info) Description 12/06/2019 Procedure Pass [facility], Ct Scan - [address] [address] Social History Tobacco Use Types Packs/Day Years [...] documented as of this encounter Care Teams Help Desk Associate Relationship Specialty Start Date End Date Chceo Lin DO [email or web address] PCP - General 04/19/17 documented as of this encounter Additional Source Comments The information contained in this document represents components of the legal health record. It is not the complete legal health record.[facility]
--- OUTSIDE RECORDS SUMMARY | 2025-05-22 18:37 | XMS_ITS | Clinical Summary ---
Author Organization [facility] Address [address] [address] Care Team Providers Care Scout Name Role Phone Checo Lin Primary Care Provider [phone] Social History Tobacco Use Types Packs/Day Years [...] age to complete this topic Insurance Medicare [facility] Medicare [facility] Care Teams Scout Relationship Specialty Start Date End Date Checo Lin DO [address] [place] [address] PCP - General Internal Medicine 09/30/22
--- OUTSIDE RECORDS SUMMARY | 2025-05-22 18:37 | XMS_ITS | Encounter Summary ---
Author Organization [facility] Address [address] [place] [address] Phone Care Team Providers Care Side Panel Padder Name Role Phone Checo Lin Primary Care Provider [phone] Encounter Details Date Type Department Care Team (Late st Contact Info) Description 08/25/2018 Ancillary Orders [facility] [address] [place] [address] Enriqueta Hoffman, SEMAJ [address] Yomi [address] [place] [address] Palpitations Social History Tobacco Use Types Packs/Day Years [...] as of this encounter Visit Diagnoses Diagnosis Palpitations documented in this encounter Additional Health Concerns Infection Onset Date Last Indicated Resolved Time CoV-Risk 06/11/2022 06/11/2022 06/11/2022 4:03 PM EST CoV-Exposed Comment:Positive COVID-19 06/11/2022 06/11/2022 06/11/2022 4:0 3 PM EST COVID-19 06/11/2022 06/11/2022 07/02/2022 1:21 AM EST documented as of this encounter Care Teams Side Panel Padder Relationship Specialty Start Date End Date Checo Lin DO [email or web address] PCP - General 04/19/17 documented as of this encounter Additional Source Comments The information contained in this document represents components of the legal health record. It is not the complete legal health record.[facility]
--- OUTSIDE RECORDS SUMMARY | 2025-05-22 18:37 | XMS_ITS | Encounter Summary ---
Author Organization [facility] Address [address] [employer] [facility] [address] [place] [address] Phone Care Team Providers Care Tuck Pointer Name Role Phone Checo Lin Primary Care Provider [phone] Encounter Details Date Type Department Care Team (Latest Contact Info) Description 05/02/2021 Transcribe Orders Virtual Department 30 [place] [address] Lanny Arana PA [address] [place] [address] [place] [address] Right leg pain (Primary Dx) Social History Tobacco Use Types [...] as of this encounter Results * XR Tibia Fibula 2 Views (Right) (05/02/2021 12:00 PM EDT) Anatomical Region Laterality Modality Leg Right Computed Radiogr aphy 05/02/2021 1:40 PM EDT Impressions 05/02/2021 1:45 PM EDT No significant bone abnormalities. Subtle soft tissue swelling at the santiago in the region of pain. No definite signs of soft tissue mass. Clinical follow-up recommended. The decision for further imaging should be made on a clinical basis. Narrative 05/02/2021 1:45 PM EDT HISTORY: Fever, pain. COMPARISON: None VIEWS: AP lateral views FINDINGS: No fractures, subluxations or dislocations. No suspicious lytic or blastic lesions within the bones. No periosteal reactions or cortical erosions. Degenerative changes at the knee, particularly at the patellofemoral compartment. No evidence of soft tissue gas. Subtle soft tissue swelling in the region of pain at the anterior aspect of the santiago. No definite signs of soft tissue mass. 4 mm non-specific well-circumscribed oval calcification within the anterior soft tissues of the santiago at the level of the distal tibial shaft. Procedure Note Wyatt Fu MD - 05/02/2021 HISTORY: Fever, pain. COMPARISON: None VIEWS: AP lateral views FINDINGS: No fractures, subluxations or dislocations. No suspicious lytic or blasticlesions within the bones. No periosteal reactions or cortical erosions. Degenerative changes at the knee, particularly at the patellofemoralcompartment. No evidence of soft tissue gas. Subtle soft tissue swelling in the regionof pain at the anterior aspect of the santiago. No definite signs of softtissue mass. 4 mm non-specific well-circumscribed oval calcificationwithin the anterior soft tissues of the santiago at the level of the distaltibial shaft. IMPRESSION: No significant bone abnormalities. Subtle soft tissue swelling at the shinin the region of pain. No definite signs of soft tissue mass. Clinicalfollow-up recommended. The decision for further imaging should be made shaneka clinical basis. Lanny [facility] IMG XR LOWER EXTREMITY Nika l Result documented in this encounter Visit Diagnoses Diagnosis Right leg pain- Primary Pain in soft tissues of limb Right leg pain Pain in soft tissues of limb documented in this encounter Additional Health Concerns Infection Onset Date Last Indicated Resolved Time CoV-Risk 06/11/2022 06/11/2022 06/11/2022 4:03 PM EST CoV-Exposed Comment:Positive COVID-19 06/11/2022 06/11/2022 06/11/2022 4:0 3 PM EST COVID-19 06/11/2022 06/11/2022 07/02/2022 1:21 AM EST Assessment Noted Time PHQ-9 Depression Total Score: 0 01/10/20 12:56 PM EDT documented as of this encounter Care Teams Tuck Pointer Relationship Specialty Start Date End Date Checo Lin DO [email or web address] PCP - General 04/19/17 documented as of this encounter Additional Source Comments The information contained in this document represents components of the legal health record. It is not the complete legal health record.[facility]
--- OUTSIDE RECORDS SUMMARY | 2025-05-22 18:37 | XMS_ITS | Encounter Summary ---
Author Organization [facility] Address [address] [place] [phone] Phone Care Team Providers Care Sap Bpc Developer Name Role Phone Triciaedwige Checo Komal VERA Primary Care Provider [phone] Reason for Referral * Consultation (Elective) - Closed Specialty Diagnoses / Procedures Referred By Contac t Referred To Contact Cardiac Rehabilitation Diagnoses S/P TAVR (transcatheter aortic valve replacement) Tony Rhodes MD Phone: tel: fax: [email or web address] [address] Phone: tel: Referral ID Status Reason Start Date Expiration Date Visits Re quested Visits Authorized [id number] Closed 12/30/2020 12/30/2021 1 1 Encounter Details Date Type Department Care Team (Latest Contact Info) Description 12/30/2020 Transcribe Orders Virtual Department [address] [place] [id number] Tony Rhodes MD [phone] [place] [address] [email or web address] S/P TAVR (transcatheter aortic valve replacement) (Primary Dx) Social History Tobacco Use Types [...] as of this encounter Plan of Treatment Scheduled Referrals Name Type Priority Associated Diagnoses Order Schedule Ambulatory referral to [facility] Cardiac Rehab Outpatient Referral Routine S/P TAVR (transcatheter aortic valve replacement) Ordered: 12/30/2020 documented as of this encounter Visit Diagnoses Diagnosis S/P TAVR (transcatheter aortic valve replacement)- Primary documented in this encounter Additional Health Concerns Infection Onset Date Last Indicated Resolved Time CoV-Risk 06/11/2022 06/11/2022 06/11/2022 4:03 PM EST CoV-Exposed Comment:Positive COVID-19 06/11/2022 06/11/2022 06/11/2022 4:0 3 PM EST COVID-19 06/11/2022 06/11/2022 07/02/2022 1:21 AM EST documented as of this encounter Care Teams Sap Bpc Developer Relationship Specialty Start Date End Date Checo Lin DO [email or web address] PCP - General 04/19/17 documented as of this encounter Additional Source Comments The information contained in this document represents components of the legal health record. It is not the complete legal health record.[facility]
--- OUTSIDE RECORDS SUMMARY | 2025-05-22 18:38 | XMS_ITS | Encounter Summary ---
Author Organization [facility] Address [address] [facility] [address] [place] [address] Phone Care Team Providers Care Instructional Materials Director Name Role Phone Checo Lin Primary Care Provider [phone] Encounter Details Date Type Department Care Team (Latest Contact Info) Description 05/14/2021 Transcribe Orders Virtual Department [address] [place] [address] Lanny Arana PA [address] [place] [address] [place] [address] Right leg pain (Primary Dx) Social History [...] as of this encounter Visit Diagnoses Diagnosis Right leg pain- Primary Pain in soft tissues of limb documented in this encounter Additional Health Concerns Infection Onset Date Last Indicated Resolved Time CoV-Risk 06/11/2022 06/11/2022 06/11/2022 4:03 PM EST CoV-Exposed Comment:Positive COVID-19 06/11/2022 06/11/2022 06/11/2022 4:0 3 PM EST COVID-19 06/11/2022 06/11/2022 07/02/2022 1:21 AM EST Assessment Noted Time PHQ-9 Depression Total Score: 0 01/10/20 12:56 PM EDT documented as of this encounter Care Teams Instructional Materials Director Relationship Specialty Start Date End Date TriciaCheco [email or web address] PCP - General 04/19/17 documented as of this encounter Additional Source Comments The information contained in this document represents components of the legal health record. It is not the complete legal health record.[facility]
--- OUTSIDE RECORDS SUMMARY | 2025-05-22 18:38 | XMS_ITS | Encounter Summary ---
Author Organization [facility] Address [address] [place] [address] Phone Care Team Providers Care Wind Energy Mechanic Name Role Phone Checo Lin Primary Care Provider [phone] Encounter Details Date Type Department Care Team (Late st Contact Info) Description 08/25/2018 Ancillary Orders [facility] [address] [facility] [address] [place] [address] Enriqueta Hoffman, SEMAJ [address] [place] [address] Palpitations Social History Tobacco Use Types Packs/Day [...] documented as of this encounter Results * Event Monitor Looping up to 30 Days (08/25/2018 9:43 AM EST) Anatomical Region Laterality Modality Heart Other Narrative 08/25/2018 12:35 PM EST 30-day monitor: Patient activated events occurred during sinus rhythm and sinus rhythm with PVCs. There was an automatic trigger on July 18 at 5 PM with new onset of atrial fibrillation, duration of the event of approximately 15 minutes. There was another episode of atrial fibrillation on July 20 detected by automatic trigger. There were brief episodes of atrial tachycardia detected by automatic trigger. Impression: 30-day monitor demonstrates paroxysmal atrial fibrillation detected by automatic trigger. Patient symptoms of palpitations occurred during sinus rhythm and sinus rhythm with PVCs. Procedure Note Wai Luevano MD - 08/25/2018 30-day monitor: Patient activated events occurred during sinus rhythm andsinus rhythm with PVCs. There was an automatic trigger on July 18 at 5PM with new onset of atrial fibrillation, duration of the event ofapproximately 15 minutes. There was another episode of atrialfibrillation on July 20 detected by automatic trigger. There werebrief episodes of atrial tachycardia detected by automatic trigger. Impression: 30-day monitor demonstrates paroxysmal atrial fibrillationdetected by automatic trigger. Patient symptoms of palpitations occurredduring sinus rhythm and sinus rhythm with PVCs. Enriqueta [facility] ORDERA BLES Final Result documented in this encounter Visit Diagnoses Diagnosis Palpitations Palpitations documented in this encounter Additional Health Concerns Infection Onset Date Last Indicated Resolved Time CoV-Risk 06/11/2022 06/11/2022 06/11/2022 4:03 PM EST CoV-Exposed Comment:Positive COVID-19 06/11/2022 06/11/2022 06/11/2022 4:0 3 PM EST COVID-19 06/11/2022 06/11/2022 07/02/2022 1:21 AM EST documented as of this encounter Care Teams Wind Energy Mechanic Relationship Specialty Start Date End Date Checo Lin DO [email or web address] PCP - General 04/19/17 documented as of this encounter Additional Source Comments The information contained in this document represents components of the legal health record. It is not the complete legal health record.[facility]
--- OUTSIDE RECORDS SUMMARY | 2025-05-22 18:38 | XMS_ITS | Clinical Summary ---
Author Organization [facility] Address [address] [address] Phone Care Team Providers Care Master [place] [employer] Name Role Phone Checo Lin Primary Care Provider [phone] Allergies Active Allergy Reactions Criticality Noted Date Comments Tizanidine Medium 06/05/2021 Other reaction(s): Dizziness Medications chlorthalidone (HYGROTON) 25 MG tablet 1 tablet in the morning Active cholecalciferol (VITAMIN D3) 400 unit tablet Take 400 Units by mouth daily. Active ELIQUIS 5 mg tabletIndicatio ns:PAF (paroxysmal atrial fibrillation) TAKE 1 TABLET(5 MG) BY MOUTH TWICE DAILY 180 tablet 3 1 Active metoprolol succinate (TOPROL-XL) 50 MG 24 hr tabletIndicatio ns:PAF (paroxysmal atrial fibrillation) TAKE 1 TABLET(50 MG) BY MOUTH DAILY 90 tablet 3 1 Active aspirin 81 mg chewable tablet Take 81 mg by mouth. 1 Active baclofen (LIORESAL) 5 mg tablet TAKE 1 TABLET BY MOUTH THREE TIMES DAILY FOR 14 DAYS NEEDED 1 Active triamcinolone acetonide 0.5 % cream Apply topically 3 (three) times a day. 30 g 2 Active potassium chloride SA (K-DUR,KLOR-CON ) 10 MEQ ER tablet Take 1 tablet (10 mEq total) by mouth daily. 4 tablet 2 Active erythromycin (ROMYCIN) ophthalmic ointment erythromycin 5 mg/gram (0.5 %) eye ointment Active fluticasone propionate (FLOVENT HFA) 110 mcg/actuation inhaler Flovent HFA 110 mcg/actuation aerosol inhaler INHALE 1 PUFF INTO THE LUNGS TWICE A DAY FOR 30 DAYS Active fluticasone propionate (FLONASE) 50 mcg/actuation nasal sprayIndication s:Chronic cough,Chronic rhinitis 1 spray each nostril twice daily 15.8 mL 5 3 Active Active Problems Problem Noted Date Diagnosed Date Chronic rhinitis 08/06/2022 Assessment & Plan (08/06/2022 10:53 AM EST): Has year-round rhinorrhea. Could be a contributor to her chronic cough. -Trial of Flonase 1 spray each nostril twice daily Chronic cough 07/31/2022 Assessment & Plan (08/06/2022 10:53 AM EST): Chronic, mostly nonproductive cough without other pulmonary symptoms. Chest x- ray from 06/11/2022 (in the setting of +COVID) was clear, unremarkable. Her cough acutely worsened after having COVID in 06/2022. Around this time, it appears that she was prescribed an ICS. Her symptoms have improved, but is unclear whether this is from resolution of her viral infection versus benefit from ICS therapy. She is a former remote smoker. Will obtain PFTs to evaluate for any obstructive lung disease which could be a cause of or contributor to her cough. She appears to have chronic rhinitis which could be contributing to her cough. -Obtain PFTs -Patient will call the office to let us know what inhaler/dose she is taking (Per chart, it appears to be Flovent 110 1 puff twice daily) -Management of chronic rhinitis, as below PAF (paroxysmal atrial fibrillation) 08/08/2018 Assessment & Plan (03/21/2020 8:39 AM EDT): The patient has paroxysmal atrial fibrillation, she is anticoagulated with Eliquis. She has an elevated stroke risk due to hypertension and she will continue Eliquis. She is rate controlled. Essential hypertension 01/20/2018 Assessment & Plan (03/21/2020 8:33 AM EDT): Pressure in the office today is 128/78. Patient has essential hypertension with good blood pressure control on her current medications, metoprolol 50 mg daily, which she will continue. Nonrheumatic aortic valve stenosis 08/03/2017 Assessment & Plan (03/21/2020 8:38 AM EDT): Patient has moderate aortic stenosis. She is currently asymptomatic. Echocardiogram EF 60 to 65%. Though she did complain of dizziness for 3 weeks time (has improved), however she feels is from bilateral ear pressure that she continues to have. She will follow-up with her primary care physician. No significant change from previous echo 07/18/192018 Repeat an echo yearly, her last echo was 07/20/2019. Varicose veins of other specified sites 08/03/19 18 Elevated blood pressure reading 08/03/2017 Social History Tobacco Use Types Packs/Day Years Used Date Smoking Tobacco: Former Smokeless Tobacco: Never Tobacco Cessation:Counseling Given: Not Answered Comments:in her 20s Alcohol Use Standard Drinks/Week [...] Orientation Straight 06/11/2022 2: 08 PM EST Last Filed Vital Signs Vital Sign Reading Time Taken Comments Blood Pressure 126/70 08/06/2022 9:55 AM EST Pulse 73 08/06/2022 9:55 AM EST Temperature 36.8 C (98.3 F) 08/06/2022 9:55 AM EST Respiratory Rate 16 06/11/2022 9:55 PM EST Oxygen Saturation 98% 08/06/2022 9:55 AM EST Inhaled Oxygen Concentration - - Weight 69.8 kg (153 lb 12.8 oz) 08/06/2022 9:55 AM EST Height 162.6 cm (5' 4 ) 08/06/2022 9:55 AM EST Body Mass Index 26.4 08/06/2022 9:55 AM EST Plan of Treatment Health Maintenance Due Date Last Done Comments ZOSTER VACCINES (1 of 2) 1990 OSTEOPOROSIS SCREENING INITIAL (ONE-TIME) 2005 RSV VACCINE (1 - 1-dose 75+ series) 2015 DEPRESSION SCREENING 01/09/2022 01/09/2021 BLOOD PRESSURE 02/03/2023 08/06/2022 CREATININE LEVEL 06/11/2023 06/11/2022, 02/2022, 08/05/2018 POTASSIUM LEVEL 06/11/2023 06/11/2022, 02/2022, 08/05/2018 INFLUENZA VACCINE (#1) 2025 , 06/02/2016, 05/05/2016, Additional history exists COVID-19 VACCINE ( season) 2025 04/18/2021, 09/05/2020, 08/10/2020 Adult Td,Tdap Booster 10/02/2025 10/03/2015 PNEUMOCOCCAL VACCINES (50+ years) Completed 07/16/2016, 2015 HEPATITIS A VACCINES Aged Out No long er eligible based on patient's age to complete this topic HIB VACCINES Aged Out No longer eligi ble based on patient's age to complete this topic IPV VACCINES Aged Out No longer eligi ble based on patient's age to complete this topic MENINGOCOCCAL VACCINES (ACWY) Aged Out No longer eligible based on patient's age to complete this topic MENINGOCOCCAL VACCINES (B) Aged Out N o longer eligible based on patient's age to complete this topic Medical Devices Not on file Procedures Procedure Name Priority Date/Time Associated Diagnosis Comments BASIC METABOLIC PANEL (BMP) STAT 06/11/2022 2:35 PM EST from Last 3 Months or Most Recently Relevant to Health Maintenance Results * (ABNORMAL) Basic metabolic panel (06/11/2022 2:35 PM EST) SODIUM 131(L) 133 - 146 mmol/L [facility] CHLORIDE 89(L) 96 - 108 mmol/L [facility] POTASSIUM 2.8(L) 3.3 - 5.1 mmol/L [facility] CO2 30 21 - 35 mmol/L [facility] BUN 17 6 - 19 mg/dL [facility] CREATININE 0.90 0.5 - 1.5 mg/dL [facility] GLUCOSE 122(H) 70 - 99 mg/dL [facility] CALCIUM 9.2 8.4 - 10.3 mg/dL [facility] EGFR 64 >59 mL/min/1.7 3m2 [facility] Comment:Estimated glomerular filtration rate calculated using the CKD-EPI refit equation. ANION GAP 15 10 - 20 mmol/L [facility] Blood 06/11/2022 2:35 PM EST 06/11/2022 2:48 PM EST us Dianne Ramirez DO LAB BLOOD BKR ORDERABLES Fin al Result [address] [phone] from Last 3 Months or Most Recently Relevant to Health Maintenance Insurance MEDICARE PART A & B [employer] MED[employer] ENHANCE SUPPLEMENT MEDICARE PART A & B [facility] MEDICARE ENHANCE SUPPLEMENT MEDICARE PART A & B [facility] MEDICARE ENHANCE SUPPLEMENT MEDICARE PART A & B [facility] MEDICARE ENHANCE SUPPLEMENT MEDICARE PART A & B MEDICARE ENHANCE SUPPLEMENT MEDICARE PART A & [place] [address] [place] [address] MEDICARE ENHANCE SUPPLEMENT MEDICARE PART A & B MEDICARE ENHANCE SUPPLEMENT MEDICARE PART A & B [id number] [place] [address] MEDICARE ENHANCE SUPPLEMENT MEDICARE PART A & B [employer] MEDIC[employer] ENHANCE SUPPLEMENT Care Teams Master [employer] Relationship Specialty Start Date End Date Checo Lin DO PCP - General 04/19/17 Additional Source Comments The information contained in this document represents components of the legal health record. It is not the complete legal health record.[facility]
--- OUTSIDE RECORDS SUMMARY | 2025-05-22 18:38 | XMS_ITS | Data Portability ---
Author Organization [facility], Telehealth Patient Home Address [address] [place] [address] Assessment Encounter Date Assessment Date Assessment LastModified by Organization Details LastModified Time 12/05/2024 12/05/2024 [id number] [place] [id number] (HAT MAKER) : NICOLE LOW MUST MEET 2 OF 3 ELEMENTS: [...] ALL OF THE ELEMENTS COVERED Not available 12/05/2024 11:23:36 02/27/2025 02/27/2025 [id number] [place] [id number] (HAT MAKER) : NICOLE LOW MUST MEET 2 OF 3 ELEMENTS: [...] ALL OF THE ELEMENTS COVERED Not available 02/27/2025 15:47:23 03/23/2025 03/23/20[place] [id number] [place] [id number] (HAT MAKER) : MDM LOW MUST MEET 2 OF [...] ALL OF THE ELEMENTS COVERED Not available 03/23/2025 12:11:43 Plan of Treatment Reminders Order Date Submit Date Provider Last Modified By Organization Details Last Modified Time Details Appointments None recorded. Lab TSH + free T4, serum 2024 025 [facility], [address] [place] [address], [address], 5 13:38:42 CBC w/ auto diff 2024 025 [facility], [address] [place] [address], [address], 5 10:44:23 tsi (thyroid-s timulating immunoglob ulin), serum 2024 025 [facility], [address] [place] [address], [address], 5 10:44:23 thyroperox idase Ab, serum 2024 025 [facility], [address] [place] [address], [address], 10:44:23 Referral None recorded. Procedures None recorded. Surgeries None recorded. Imaging US, neck, soft tissue 2024 025 [email or web address] 10 [facility], [address] [place], [address], 10:30:46 Medication Orders tramadol 50 mg tablet 2024 025 [facility]Pharmacy #[id number], [address] [place], [address], 10:31:25 celecoxib 100 mg capsule 2024 025 [facility] #[id number], [address] [place], [address], 11:01:02 Patient TargetsNo targets recorded. Patient InstructionsNo instructions recorded. Reason for Referral None Reported. Results Created Date Observation Date Name Description Value Unit Range Abnormal Flag Note LastModifiedBy Organization Detail LastModifiedTime 02/21/2002/20/2025 US, neck, soft tissu e No observ ation record ed. [email or web address] [facility] [address] [place], [address], 02/21/2025 09:37:33 Result Notes None recorded. Problems Name Problem SNOMED Code Status Onset Date Resolution Date Notes Provider Name and Address Organization Details Recorded Time Aortic valve stenosis with insuffici ency 023235535 Active 2017 Dr. blanche kirby, echo 018 Not Available [facility] 4 19:53:12 Essential hypertens ion 21890219 Active 2017 Not Available [facility] 19:53:13 Varicose veins of lower extremity 90159856 Active 2017 Not Available [facility] 19:53:13 Hypothyro idism 68579443 Active 2017 Not Available [facility] 19:53:13 Celluliti s of lower leg 023724546 Active 2020 Not Available [facility] 4 19:53:13 Dizziness 851722535 Active 2021 Not Available [facility] 01/19/202 4 19:53:13 Chronic cough 23742147 Active 2021 Not Available [facility] 4 19:53:13 Nocturia 627278934 Active 2021 Not Available [facility] 4 19:53:12 COVID-19 657415898 Active 2021 Not Available [facility] 4 19:53:13 Hypokalem ia 44834093 Active 2021 Not Available [facility] 4 19:53:13 Interstit ial lung disease 766537496 Active 2021 Not Available [facility] 4 19:53:12 Osteoarth ritis of right knee joint 763988519092 100 Active 2022 Not Available [facility] 4 19:53:13 Hyponatre dipak 14001910 Active 2022 Not Available [facility] 4 19:53:13 Acute bronchiti s 92987095 Active 2022 Not Available [facility] 4 19:53:12 Near syncope 148534557 Active 2022 Not Available [facility] 4 19:53:13 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 94461142 Active 2022 Not Available [facility] 4 19:53:13 Acute sinusitis 31973085 Active 2022 Not Available [facility] 4 19:53:12 Bleeding from nose 348158414 Active 2022 Not Available [facility] 4 19:53:12 Serous otitis media 94621613 Active 2022 Not Available [facility] 4 19:53:13 Blepharit is 30102602 Active 2022 Not Available [facility] 4 19:53:13 Chronic blepharit is 41946753 Active 2022 Not Available [facility] 4 19:53:13 Chronic blepharit is 51304984 Active 2022 Not Available [facility] 4 19:53:13 Thoracic back pain 967491385 Active 2022 Not Available [facility] 4 19:53:12 Low back pain 422936657 Active 2022 Not Available [facility] 4 19:53:12 Atrial fibrillat ion 44929918 Active 2023 Not Available [facility] 4 19:53:13 Acute otitis media 0452129 Active 2023 Not Available [facility] 4 19:53:13 Acute otitis media 8033421 Active 2023 Not Available [facility] 4 19:53:13 Serous otitis media 32722321 Active 2023 Not Available [facility] 4 19:53:13 Bilateral earache 065378321 Active 2023 SEMAJ FRITZ [address] [place] [address], [address], [facility] 4 11:37:38 Fatigue 24939015 Active 2023 SEMAJ FRITZ [address] [place], [address], [facility] 4 14:42:10 Pain of left hip joint 670885778025 100 Active 2023 SEMAJ FRITZ [address] [place], [address], [facility] 4 15:24:30 Osteoarth ritis of hip 202167399 Active 2023 SEMAJ FRITZ [address] [place], [address], [facility] 4 08:50:18 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 699205830 Active 2023 Checo Lin DO [address] [place] [address], [address], [facility] 4 10:34:13 Hearing loss 38439578 Active 2023 Checo Lin DO [address] [place] [address] [place], [address], [facility] 4 10:38:21 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 798530087 Active 2023 Checo Lin, DO [address] [place] [address], [address], [facility] 4 10:43:36 Paroxysma l atrial fibrillat ion 863662247 Active 2023 Checo Lin, DO [address] [place] [address], [address], [facility] 4 10:47:50 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 73970484 Active 2023 SEMAJ FRITZ [address] [place] [address], [address], [facility] 4 15:22:14 Sensorine ural hearing loss 35841019 Active 2023 Checo Lin, DO [address] [place] [address], [address], [facility] 4 21:50:09 Overactiv e urinary bladder 105554921 Active 2024 SEMAJ FRTIZ [address] [place] [address], [address], [facility] 5 10:43:27 Lymphaden opathy 70030328 Active 2024 SEMAJ FRITZ [address] [place] [address], [address], [facility] 5 10:24:17 Knee joint painful on movement 750928382 Active 2024 SEMAJ FRITZ [address] [place] [address], [address], [facility] 5 10:32:16 Subclinic al hypothyro idism 80765019 Active 2024 SEMAJ FRITZ [address] [place] [address], [address], [facility] 15:20:57 Problem Notes None recorded. Procedures Surgical History Date Name Laterality Status Provider Name and Address Organization Details Recorded Time 025 Corticosteroid Injection completed Checo Lin DO [address] [place] [address], [address], [facility] 03/23/2025 12:11:27 025 Corticosteroid Injection completed Checo Lin DO [address] [place] [address], [address], [facility] 02/27/2025 15:47:07 025 Corticosteroid Injection completed Checo Lin DO [address] [place] [address], [address], [facility] 12/05/2024 11:23:16 024 Corticosteroid Injection completed Checo Lin DO [address] [place] [address], [address], [facility] 11/10/2023 09:02:09 023 Corticosteroid Injection completed Checo Lin DO [address] [place] [address], [address], [facility] 04/27/2023 11:06:12 023 Corticosteroid Injection completed Checo Lin DO [address] [place] [address], [address], [facility] 08/19/2022 11:51:04 023 Corticosteroid Injection completed Checo Lin DO [address] [place] [address], [address], [facility] 08/11/2022 15:17:29 021 WOUND CARE completed SEMAJ FRITZ [address] [place] [address], [address], [facility] 05/20/2021 12:36:30 021 WOUND CARE completed SEMAJ FRITZ [address] [place] [address], [address], [facility] 05/14/2021 11:43:29 WOUND CARE completed SEMAJ FRITZ [address] [place], [address], [facility] 05/09/2021 11:14:19 021 WOUND CARE completed SEMAJ FRITZ [address] [place], [address], [facility] 05/05/2021 11:33:03 WOUND CARE completed SEMAJ FRITZ [address] [place] [address], [address], [facility] 05/02/2021 10:51:30 WOUND CARE completed SEMAJ FRITZ [address] [place] [address], [address], [facility] 04/28/2021 10:18:13 021 Corticosteroid Injection completed Checo Lin DO [address] [place] [address], [address], [facility] 01/17/2021 11:10:46 021 Corticosteroid Injection completed Checo Lin DO [address] [place] [address], [address], [facility] 11/20/2020 12:00:12 017 Most Recent Mammogram completed Rhoda Villa NP, S [address] [place] [address], [address], [facility] 10/27/2017 15:05:38 980 Total Hysterectomy completed Rhoda Villa NP, S [address] [place] [address], [address], [facility] 10/27/2017 15:06:10 Appendectomy completed [facility] 12/21/2017 13:53:51 Tonsillectomy completed [facility] 12/21/2017 13:54:02 Imaging Results None recorded. Procedure Notes None recorded. Medical Equipment None Reported. Allergies Allergen ID Allergen Name Allergen Category Reaction Reaction Severity Criticality Documentation Date Start Date Code Code System Note Provider Name and Address Organization Details Recorded Time 1083 lisinopri l medicatio n cough Not available Not available 10/29/2017 86602 RxNorm Rhoda Villa, [place], [address] [place], [address], [facility] 8 09:21:40 5038 tizanidin e medicatio n dizziness moderate Not available 05/14/2021 18377 RxNorm RAJAN HESTER, PA [address] [place], [address], [facility] 11:40:50 Medications Name Sig [...] MOUTH EVERY 6 HOURS FOR 7 DAYS active Not Available Not Available No t Available amoxicilli n 500 mg tablet TAKE FOUR TABLETS BY MOUTH ONE HOUR PRIOR TO DENTAL PROCEDURE 07/21 completed Not Available Not Available Not Available ketorolac 0.5 % eye drops INSTILL 1 DROP INTO RIGHT EYE FOUR TIMES A DAY START 2 DAYS BEFORE SURGERY active Not Available Not Available No t Available meloxicam 7.5 mg tablet TAKE 1 [...] Available Not Available baclofen 10 mg tablet Take 1 tablet 3 times a day by oral route as needed for 14 days. 03/22 completed Not Available Not Available Not Available erythromyc in 5 mg/gram (0.5 %) eye ointment APPLY A SMALL AMOUNT INTO RIGHT EYE EVERY EVENING DIRECTED active Not Available Not Available No t Available tobramycin 0.3 % eye drops INSTILL 1 DROP INTO RIGHT EYE FOUR TIMES A DAY FOR 5 DAYS active Not Available Not Available No t Available oxybutynin chloride ER 5 mg tablet,ext [...] LAYER TO ENTIRE BURN AREA BY TOPICALRO TYONEK 2 TIMES PER DAY 04/17 completed Not Available Not Available Not Available celecoxib 100 mg capsule TAKE 1 CAPSULE BY MOUTH EVERY DAY DIRECTED FOR 14 DAYS active Not Available Not Available No t Available fluticason e propionate 50 mcg/actuat ion [...] week Not Available Not Available Not Available moxifloxac in 0.5 % eye drops INSTILL 1 DROP INTO RIGHT EYE FOUR TIMES A DAY START 1 DAY BEFORE SURGERY active Not Available Not Available No t Available potassium chloride ER 10 mEq tablet,ext ended release(pa rt/cryst) 10/09 completed Not Available Not Available Not Available Flovent HFA 110 mcg/actuat ion aerosol inhaler INHALE 1 PUFF INTO THE LUNGS TWICE A DAY FOR 30 DAYS 04/28 completed Not Available Not Available Not Available chlorthali done 25 mg 1 po daily 12/22 completed Not Available Not Available Not Available trospium ER 60 mg capsule,ex tended release 24 hr TAKE 1 CAPSULE BY MOUTH DAILY AT SUPPER active Not Available Not Available No t Available Eliquis 5 mg tablet TAKE 1 TABLET BY MOUTH TWICE A DAY 2024 active Not Available Not Available Not Avai lable baclofen 5 mg tablet TAKE 1 TABLET [...] height Body mass index (BMI) Body weight Oxygen saturation Oxygen saturation in Arterial blood by Pulse oximetry Heart rate Systolic And Diastolic Provider Name and Address Organization Details Last Updated DateTime 5 160.02 cm 27.2 kg/m2 69096.4 3 g 98 % 98 % 68 /min 134/82 mm[Hg] XANDER OSMAN [facility] 5 10:16:12 Date Recorded Body height Body mass index (BMI) Body weight Heart rate Oxygen saturation Oxygen saturation in Arterial blood by Pulse oximetry Systolic And Diastolic Provider Name and Address Organization Details Last Updated DateTime 5 160.02 cm 27.1 kg/m2 96036.6 3 g 76 /min 98 % 98 % 138/80 mm[Hg] Lia Ferreira [facility] 5 16:00:53 Social History Question Answer Notes LastModified by Organizat ion Details LastModified Time Tobacco Smoking Status Former Smoker Magaly moses [facility] 10/29/2017 09:06:01 What Was The Date Of Your Most Recent Tobacco Screening? 01/03/2025 [email or web address] Information not available 01/03/2025 How Many Years Have You Smoked Tobacco? 5 [email or web address] Information not available 10/29/2017 Sex: Female Functional Status Question Answer Note LastModified by Organization D etails LastModified Time Do you or have you ever used any other forms of tobacco or nicotine? No [email or web address] Information not available 12/22/2023 Mental Status None recorded. Family History Nothing Reported. Medical History Condition Response Coronary Artery Disease N Gout N Kidney Stones N Blood Diseases N Blood Transfusion N COPD N Depression N Anxiety Disorder N Muscle, Joint, or Bone Problems N Obesity N Vision or Eye Problems Y Arthritis Y Polyps N Infertility N Mental Disorder N Cancer N Stroke N Varicosities Y Fibromyalgia N Headaches Y Kidney Disease N Heart Problems N Hospitalizations Y Eating Disorder N MRSA exposure N Constipation N Tuberculosis N Pulmonary Embolism N Chronic Ear Infections N Chicken Pox Y Autism Spectrum Disorder (ASD) N Breast Cancer N Hypothyroidism Y Lung Disease N Defects or Inherited Disease N Difficulty Swallowing Y Anesthesia Complications N Meniere's disease N Endometriosis N Bladder or Kidney Problems N High Cholesterol Liver Disease N Allergies/Hayfever Y Thyroid Problems Y GI Problems N Mental Illness N Ovarian Cancer N Diabetes N Seizures/Epilepsy N Congestive Heart Failure (CHF) N Eczema N Abuse/Domestic Violence N Reflux/GERD N Heart Disease Pre-Eclampsia N Hypertension Y Osteoporosis N Gynecological History Statement/Question Response Abnormal Pap Most Recent Mammogram 01/20/2017 Obstetrics History GPAL:G 0 P 0 0 0 0 Immunizations Vaccine Type Date Status Note Provider Nam e and Address Organization Details Recorded Time COVID-19, mRNA, LNP-S, PF, 30 mcg/0.3 mL dose 1 completed Not Available [facility] 07/23/2023 19:53:13 Influenza, split virus, quadrivalent, preservative 1 completed Not Available [facility] 07/23/2023 19:53:13 Influenza, adjuvanted, trivalent, PF 6 completed Not Available [facility] 07/23/2023 19:53:13 Tdap 6 completed Not Available [facility] 07/23/2023 19:53:13 COVID-19, mRNA, LNP-S, PF, 30 mcg/0.3 mL dose 1 completed Not Available [facility] 07/23/2023 19:53:13 COVID-19, mRNA, LNP-S, PF, 30 mcg/0.3 mL dose 1 completed Not Available [facility] 07/23/2023 19:53:13 MMR 6 completed Not Available [facility] 07/23/2023 19:53:13 Pneumococcal conjugate PCV 13 6 completed Not Available [facility] 07/23/2023 19:53:13 pneumococcal polysaccharide PPV23 7 completed Not Available [facility] 07/23/2023 19:53:13 Past Encounters Encounter ID Performer Location Encounter Start Date Encounter Closed Date Diagnosis/Indication Diagnosis SNOMED-CT Code Diagnosis ICD10 Code Diagnosis IMO Codes Diagnosis Note [id number] Checo Lin [facility] [address] [facility] [address] 10/29/2017 08:58:55 10/29/2017 10:30:08 Adult health examination 206697996 Z00.01 Essential hypertension 29132324 I10 Hypothyroidism 39250120 E03.9 Mass of guidry bmandibular region 704922405 R22.1 Skin lesion 56814202 L98 .9 Headache 06536129 R51 non focal exam, with other symptoms, ?? allergies, try OTC non drowsy antihistam ine [id number] Checo Lin [facility] [address] [facility] [address] 12/22/2017 09:00:14 12/22/2017 10:04:17 Mass of submandibular region 333899599 R22.1 Aortic valve stenosis 60 000866 I35.0 echo 07/2017, up to date cardiologi st Essential hypertension 22365712 I10 stable, check labs, to do this am Hypothyroidism 35737715 E03.9 complete labs [id number] Checo Lin DO [facility] [address] [facility],[place] [address] 03/01/2018 11:27:04 03/02/2018 08:40:15 Hypothyroidism 14823042 E03.9 reviewed labs Essential hypertension 88652954 I10 stable Aortic mark ve stenosis with insufficiency 252598001 I35.2 Tight chest 55556173 R07 .89 [id number] Checo Lin [facility] [address] [facility],[place] [address] 11/08/2018 10:37:34 11/08/2018 11:24:44 Paroxysmal atrial fibrillation 843653383 I48.0 on Eliquis Hypothyroidism 85356822 E03.9 no meds Essential hypertension 19416082 I10 stable Aortic mark ve stenosis with insufficiency 425550595 I35.2 up to date echo [id number] Checo Lin [facility] [address] [facility] [place] [address] 02/21/2019 09:14:58 02/21/2019 10:13:56 Fatigue 19413316 R53.83 Dizziness 138064848 R42 very mild ? 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 343086435 D16.7 will need sray to start [id number] Checo Lin [facility] [address] [facility], [place] [address] 11/05/2020 10:58:21 11/05/2020 16:33:48 Osteoarthritis of left knee joint 8598284055 89790 M17.12 flare up of her osteo in her knee will set up with cortisone and try small short course of meloxicam until we can get her for a cortisone shot [id number] Checo Lin [facility] [address] [place] [address], [facility] [place] [address] 11/20/2020 11:45:50 11/20/2020 14:50:20 Osteoarthritis of left knee joint 1130427236 00200 M17.12 tolerated inj will follow up after surg to attempt the right knee if warranted [id number] Checo Lin [facility] [address] [place] [address],[place] [facility] [place] [address] 12/31/2020 14:50:55 12/31/2020 16:22:03 Paroxysmal atrial fibrillation 989532904 I48.0 stable Aortic mark ve stenosis with insufficiency 752608241 I35.2 TAVR placeddoin g well Essential hypertension 51208120 I10 BP fine [id number] Checo Lin [facility] [address] [place] [address],[place] [address] 01/17/2021 10:50:20 01/17/2021 11:13:36 Osteoarthritis of right knee joint 0472079275 64107 M17.11 jennifer inj some discomfort but otherwise abe [id number] [facility] [address] [place] [address],[place] [address] 04/28/2021 09:39:15 04/28/2021 10:35:18 Cellulitis of lower leg 458190847 L03.115 fu with repeat check on wednesday Tear of skin 476055840 T 14.8XXA fu with repeat check wednesday Otalgia 70234192 H92.03 use flonase or afrin Bilateral osteoarthritis of knees 5371573145 59865 M17.0 [id number] Checo Lin [facility] [address] [place] [address],[place] [address] 05/02/2021 09:41:05 05/02/2021 10:53:38 Laceration of lower leg 078722690 S81.811A fu on wednesday for wound check Pain in lower limb 43722 006 M79.604 fu with XR [id number] Checo Lin [facility] [address] [place] [address],[place] [address] 05/05/2021 10:52:11 05/05/2021 14:55:50 Laceration of lower leg 088592980 S81.811A fu wednesday for wound check [id number] Checo Lin [facility] [address] [place] [address],[place] [facility] [place] [address] 05/09/2021 10:58:04 05/09/2021 12:06:54 Cellulitis of lower leg 595807902 L03.115 fu with repeat check next week [id number] Checo Lin [facility] [address] [facility] [address] 05/14/2021 11:20:40 05/14/2021 13:53:47 Laceration of lower leg 416835011 S81.811A fu wednesday for wound check Pain in lower limb 74466 006 M79.604 fu with XR Low back pain 397256089 M54.59 will trial baclofen instead tizanidine as it caused her dizziness [id number] Checo Lin [facility] [address] [facility] [address] 05/20/2021 11:07:40 05/20/2021 17:07:09 Laceration of lower leg 072803161 S81.811A wait for fu as it is healing well on its own and want to discuss CT when she gets itwill fu after the thanksgibelén williamson en instructio ns for warm compresses on the wound to help loosen skin [id number] Checo Lin [facility] [address] [facility] [address] 06/16/2021 09:35:25 06/16/2021 10:31:07 Edema of left lower leg 430049309 R60.0 will fu with stat US LE for DVT r/o protocol Ecchymosis 335357605 R58 [place] with [place] [id number] Checo Lin [facility] [address] [facility],[place] [place] [address] 05/18/2022 14:18:38 05/19/2022 11:04:19 Chronic cough 16365828 R05.3 will set up with pulmonolog ist Essential hypertension 51214705 I10 BP excellent Nocturia 858002805 R35.1 will trial oxybutynin for the patient 00650 Checo Lin [facility] [address] [facility],[place] [address] 06/12/2022 09:39:46 06/12/2022 13:26:00 Paroxysmal atrial fibrillation 596279506 I48.0 no issues COVID-19 343260543 U07.1 Hypokalemia 51737981 E87 .6 04019 Checo Lin [facility] [address] [facility],[place] [address] 06/17/2022 11:39:03 06/17/2022 15:27:09 COVID-19 854248512 U07.1 resolvedfi nished med s Chronic cough 14741525 R 05.3 will be seeing Essential hypertension 18304516 I10 bp is actuallyu good Aortic mark ve stenosis with insufficiency 134436868 I35.2 stable and no issue Paroxysmal atrial fibrillation 798798239 I48.0 no issues aymptomati c no presyncope issue 44151 Checo Lin [facility] [address] [facility],[place] [address] 08/11/2022 14:39:02 08/11/2022 16:06:18 Osteoarthritis of right knee joint [id number] 15112 M17.11 jennifer inj some discomfort but otherwise abe [address]21 Checo Lin [facility] [address] [facility],[place] [address] 08/14/2022 15:34:59 08/17/2022 08:38:15 Osteoarthritis of right knee joint 7928978543 01755 M17.11 jennifer inj some discomfort but otherwise abe 11022 Checo Lin [facility] [address] [facility],[place] [address] 10/09/2022 14:41:09 10/09/2022 15:57:55 Paroxysmal atrial fibrillation 133486776 I48.0 stabled/c diltiazem Hyponatremia 40489986 E8 7.1 will set up with [facility] results to Dr. Barnard Acute bronchitis 8383362 2 J20.0 resolved Near syncope 593407062 R 55 resolved Syndrome o f inappropriate vasopressin secretion 45216744 E22.2 needs BMP and osm done as well 13946 Checo Lin [facility] [address] [facility],[place] [address] 10/14/2022 09:51:18 10/14/2022 13:53:32 Acute sinusitis 21078715 J01.01 start z pakcontinu e Vaseline at nightstart using her humidifer again Bleeding from nose 79272 6005 R04.0 silver nitrate applied to bilateral nosecheck cbc and iron levels Serous otitis media 8032 7007 H65.03 start ear drop for serous effusion bilateral Hyponatremia 18465881 E8 7.1 will set up with BMP repeatcc results to Dr. Barnard 22628 Checo Lin [facility] [address] [facility],[place] [address] 10/20/2022 11:40:32 10/20/2022 14:00:51 Essential hypertension 25307469 I10 BP excellent Hyponatremia 35101539 E8 7.1 will set up with BMP repeatcc results to Dr. Barnard Hypokalemia 30720398 E87 .6 stable with recheck Syndrome o f inappropriate vasopressin secretion 45156221 E22.2 stable with recheck 07949 Checo Lin [facility] [address] [facility],[place] [address] 04/27/2023 10:49:25 04/27/2023 11:26:37 Osteoarthritis of right knee joint 0597610931 51908 M17.11 jennifer inj some discomfort but otherwise abe 38826 Checo Lin [facility] [address] [facility],[place] [address] 04/28/2023 15:23:41 04/28/2023 16:39:03 Chronic blepharitis 12029939 H01.022 will set up with eye drop, the ointment Dr. Owusu didn't help Adult heal th examination 893744051 Z00.00 BP is fine Thoracic back pain 40876 8004 M54.6 massage chair helped (her grandson has it) Low back pain 743522298 M54.59 helpedwoul d like a refill 169709 Checo Lin [facility] [address] [facility] [place] [address] 07/07/2023 09:04:37 07/07/2023 15:08:01 Syndrome of inappropriate vasopressin secretion 70773391 E22.2 stable with rechecksno new symptoms Atrial fibrillation 4943 6004 I48.0 stable Acute otitis media 60482 03 H65.03 will start on amoxicilli n 129789 Checo Lin [facility] [address] [facility] [place] [address] 08/02/2023 09:10:23 08/02/2023 13:47:50 Bilateral earache 543503342 H92.03 will try another ENT referral RISHI since condition is not improving and it is really starting to affect her balance and causing dizzy spells [id number] Checo Lin [facility] [address] [facility] [place] [address] 11/10/2023 08:54:12 11/10/2023 09:11:45 Osteoarthritis of right knee joint 3791932124 59615 M17.11 jennifer inj some discomfort but otherwise abe 809304 Checo Lin [facility] [address] [facility],[place] [address] 12/22/2023 14:05:05 12/22/2023 15:53:58 Depression screening 639949459 Z13.31 low risk Acute otitis media 72017 03 H65.03 will fu with prednisone taper, abx, and drop due to issues in the past with continued pain Fatigue 00531008 R53.83 will set up with repeat blood work 175117 Checo Lin [facility] [address] [facility] [place] [address] 03/22/2024 10:15:04 03/22/2024 11:40:16 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 M47.9 she has tram at home and will take at night to help her sleep Hearing loss 69649310 H9 1.93 has become quite distinct and worsening 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 788670452 M47.9 543126 Checo Lin [facility] [address] [facility],[place] [address] 03/28/2024 09:36:11 03/28/2024 15:28:58 Degeneration of lumbar intervertebral disc 45743113 M51.36 sent referral for inj consult 375562 Checo Lin [facility] [address] [facility],[place] [address] 07/21/2024 10:27:54 07/21/2024 10:57:10 Overactive urinary bladder 368281865 N32.81 agreed to urogyn and trial an alternativ e medication that is covered by her insurance [id number] Checo Lin [facility] [address] [facility], [place] [address] 12/05/2024 10:16:04 12/05/2024 11:43:52 Osteoarthritis of right knee joint 3659858468 96100 M17.11 jennifer inj some discomfort but otherwise abe [id number] Checo Lin [facility] [address] [facility],[place] [address] 01/03/2025 10:08:42 01/03/2025 13:19:05 Depression screening 688525172 Z13.31 low risk Lymphadenopathy 97499361 R59.1 44910 will set up with scan and thyroid check Knee joint painful on movement 243351233 M25.569 given new script of tramadol, short course of celecoxib 548448 Checo Lin [facility] [address] [facility],[place] [address] 02/27/2025 15:18:08 02/27/2025 15:58:17 Osteoarthritis of right knee joint 2368156528 44155 M17.11 jennifer inj some discomfort but otherwise abe 859791 Checo Lin [facility] [address] [facility] [place] [address] 03/23/2025 11:57:32 03/23/2025 16:24:46 Knee joint painful on movement 866979416 M25.569 left knee with noted osteo abe jennifer inj [id number] DO [facility] [address] [facility],[place] [address] 04/20/2025 15:39:00 04/20/2025 16:24:39 Depression screening 151204763 Z13.31 low risk Preoperative state 67858 002 Z01.818 613134 The patient was seen in the office today for pre-op evaluation . All medical conditions on patient's problem list were addressed and are currently stable, no interventi on needed at this time. Based on history and physical performed, the patient is cleared for surgery. Health Concerns Section Related Observation LastModified by Organization Detai ls LastModified Time None Recorded Concern Status LastModified by Organization Details LastModified Time None Recorded Advance Directives Directive None Recorded Payers Insurance Date Sequence Insurance Name Policy Number Policy Mackenzie Covered Member ID Mackenzie Member ID Guarantor Name 03/23/2025 1 [facility]: MEDICARE PPO BLUE (MEDICARE REPLACEMENT PPO) [id number] Abundio Lai [id number] Michelle Lai 03/23/2025 1 [facility] (EPO) Michelle Lai [id number] Michelle Lai 04/17/2025 1 MEDICARE B-[place]: [facility] Michelle Lai [id number] Michelle Lai 04/17/2025 2 [facility] (EPO) Michelle Lai [id number] Michelle Lai Notes Date Note Type Note Provider Name and Address Organization Details Recorded Time 5 text/html ROS as noted in the HPI her for jennifer inj of right knee which has been bothering her more Checo Lin DO [address] [facility], [place], [address], [facility] 12/05/2024 11:24:00 5 text/html ROS as noted in the HPI c/o swollen L/N's the patient has seen her dentist twice now, noted swollen glandsno symptoms or signs, feels fine, doesn't notice any pain or swelling sensationno breathing issues, no swallowing issues recommended screening thyroid and US for LN'sfeels more like a reactive LN but will do the full work up and determine cause of the swelling the patient is having right knee pain, had an inj with [facility] a month ago that worked until now, but the pain is patellar not her usual area, pain with sitting and bending the knee and getting up from sittingnotable crepitus and tenderness will 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 with possible bursitispt on eliquis will try a very short course of celebrex since she can't get another shot for another 2 mos given a script for tramadol too for the pain otherwise doing well SEMAJ FRITZ [address] [place], [address], [facility] 01/03/2025 10:40:39 5 text/html ROS as noted in the HPI here for jennifer inj struggling with right knee very painful with weight bearing Checo Lin DO [address] [place], [address], [facility] 02/27/2025 15:48:06 5 text/html ROS as noted in the HPI her for jennifer inj left knee for her osteoarthritstates last inj to the right knee was only partially helpful Checo Lin DO [address] [place], [address], [facility] 03/23/2025 12:12:40 5 text/html Pre-OpReported by PatientHPIFor risk factors, patient reportsno cognitive impairment,no functional impairment,no malnutrition,no frailty,able to climb a flight of stairs (exercise capacity>4 mets),no obstructive sleep apnea,non-smoker,no alcohol misuse,no illicit drug use,no chronic cardiopulmonary condition, andnot obese. For anesthesia hx, patient reportsno hx of anesthesia complications,no allergy to anesthetic agents, andno family history of anesthesia complications. For functional ability, patient reportsable to walk up stairs,able to perform heavy work around the house,no difficulty walking up hills, andable to walk 4 mph. For post-op support, patient reportsadequate assistance at home(has bf or daughter helping her and bringing her to and from). For surgery to be performed, (right eye cataract 04/24/25left eye cataract 05/08/25with dr. owusu). For context/condition being addressed, (cataract).ROS as noted in the HPI SEMAJ FRITZ [address] [place] [address], [place], [address], [facility] 04/20/2025 16:24:18 OBGyn Episode No OBEpisode recorded.
--- OUTSIDE RECORDS SUMMARY | 2025-05-22 18:38 | XMS_ITS | Encounter Summary ---
Author Organization [facility] Address [address] [facility] [address] [place] [address] Phone Care Team Providers Care Automotive Artist Name Role Phone Checo Lin Primary Care Provider [phone] Encounter Details Date Type Department Care Team (Latest Contact Info) Description 05/23/2021 Transcribe Orders Virtual Department [address] [place] [address] Lanny Arana PA [address] [place] [address] [place] [address] Knee pain, unspecified chronicity, unspecified laterality (Primary Dx) Social History Tobacco Use Types [...] as of this encounter Results * XR KNEE 4 OR MORE VIEWS (LEFT) (05/23/2021 4:07 PM EST) Anatomical Region Laterality Modality Knee Left Computed Radiogr aphy 05/23/2021 4:14 PM EST Impressions 05/23/2021 4:16 PM EST Mild multicompartment degenerative changes. Joint effusion. Narrative 05/23/2021 4:16 PM EST HISTORY: Pain and swelling. COMPARISON: None. VIEWS: 4 views. FINDINGS: Mild multicompartment marginal spurring. Minimal spurring of the tibial spines. Very mild joint space narrowing medially. No evidence of erosions. No fractures, subluxations or dislocations. No suspicious lytic or blastic lesion within the bones. Joint effusion. Procedure Note Wyatt Fu MD - 05/23/2021 HISTORY: Pain and swelling. COMPARISON: None. VIEWS: 4 views. FINDINGS: Mild multicompartment marginal spurring. Minimal spurring of the tibialspines. Very mild joint space narrowing medially. No evidence of erosions.No fractures, subluxations or dislocations. No suspicious lytic or blasticlesion within the bones. Joint effusion. IMPRESSION: Mild multicompartment degenerative changes. Joint effusion. Lanny CHA IMG XR LOWER EXTREMITY Nika l Result documented in this encounter Visit Diagnoses Diagnosis Knee pain, unspecified chronicity, unspecified laterality- Primary Knee pain, unspecified chronicity, unspecified laterality documented in this encounter Additional Health Concerns Infection Onset Date Last Indicated Resolved Time CoV-Risk 06/11/2022 06/11/2022 06/11/2022 4:03 PM EST CoV-Exposed Comment:Positive COVID-19 06/11/2022 06/11/2022 06/11/2022 4:0 3 PM EST COVID-19 06/11/2022 06/11/2022 07/02/2022 1:21 AM EST Assessment Noted Time PHQ-9 Depression Total Score: 0 01/10/20 21 12:56 PM EDT documented as of this encounter Care Teams Automotive Artist Relationship Specialty Start Date End Date Checo Lin DO PCP - General 04/19/17 documented as of this encounter Additional Source Comments The information contained in this document represents components of the legal health record. It is not the complete legal health record.[facility]
== END 2025-05-22 08:22 | disposition home or self-care (01) ==
LOC: HO.LAB 08:21
PROVIDERS: PCP Internal Medicine; Visit Provider Internal Medicine Cardiovascular Disease
DX: I48.0 Paroxysmal atrial fibrillation (principal); I42.9 Cardiomyopathy, unspecified; Z79.899 Other long term (current) drug therapy; Z95.2 Presence of prosthetic heart valve; Z79.01 Long term (current) use of anticoagulants
CPT/HCPCS: 36415; 80048; 83880; 85027; 93005; 99212

== ENCOUNTER 2025-06-06 09:43 | Outpatient (REF) | payer MEDICARE, OTHER, SELFPAY ==
--- OUTSIDE RECORDS SUMMARY | 2025-06-06 10:49 | XMS_ITS | Encounter Summary ---
Author Organization [facility] Address [address] [facility] [address] [place] [address] Phone Care Team Providers Care Chemistry Lecturer Name Role Phone Checo Lin Primary Care Provider [phone] Reason for Referral * Outpatient Procedure - Closed Specialty Diagnoses / Procedures Referred By Contcarl t Referred To Contact Radiology Diagnoses Dizziness and giddiness Procedures US Carotid Duplex Complete (Bilateral) Lanny Arana PA Phone: tel: fax: Referral ID Status Reason Start Date Expiration Date Visits Re quested Visits Authorized [id number] Closed 02/20/2022 02/20/2023 1 1 Encounter Details Date Type Department Care Team (Latest Contact Info) Description 02/20/2022 Transcribe Orders Virtual Department [address] [place] [address] Lanny Arana PA [address] [place] [address] [place] [address] Dizziness and giddiness (Primary Dx) Social History [...] hemodynamically significant ICA stenoses detected. POS - [id number] Narrative 03/13/2022 1:03 PM EDT COMPARISON: None [...] without hemodynamically significant ICAstenoses detected. POS - [id number] us Lanny CHA CV US NEUROVASCULAR Final [...] documented as of this encounter Care Teams Chemistry Lecturer Relationship Specialty Start Date End Date Checo Lin DO [email or web address] PCP - General 04/19/17 documented as of this encounter Additional Source Comments The information contained in this document represents components of the legal health record. It is not the complete legal health record.[facility]
--- OUTSIDE RECORDS SUMMARY | 2025-06-06 10:49 | XMS_ITS | Encounter Summary ---
Author Organization [facility] Address [address] [facility] [address] [place] [address] Phone Care Team Providers Care Nursing Home Assistant Administrator Name Role Phone Checo Lin DO Primary Care Provider [phone] Encounter Details Date Type Department Care Team (Late st Contact Info) Description 06/22/2020 Procedure Pass [facility] [place] [address] [place] [address] Social History Tobacco Use Types Packs/Day Years [...] documented as of this encounter Care Teams Nursing Home Assistant Administrator Relationship Specialty Start Date End Date Checo Lin DO [email or web address] PCP - General 04/19/17 documented as of this encounter Additional Source Comments The information contained in this document represents components of the legal health record. It is not the complete legal health record.[facility]
--- OUTSIDE RECORDS SUMMARY | 2025-06-06 10:49 | XMS_ITS | Encounter Summary ---
Author Organization [facility] Address [address] [address] [place] [address] Phone Care Team Providers Care Policy Checker Name Role Phone Checo Lin DO Primary Care Provider [phone] Encounter Details Date Type Department Care Team (Latest Contact Info) Description 11/26/2020 Transcribe Orders Virtual Department [address] [place] [address] Tony Rhodes MD [phone] [place] [address] [email or web address] Pre-procedure lab exam (Primary Dx) Social [...] (12/06/2020 9:00 AM EDT) COVID-19 Comment [id number] [facility] COVID Testing Status In-house testing being performed [facility] 12/06/2020 9:00 AM EDT 12/06/2020 12:04 PM EDT us Tony Rhodes MD LAB GENERAL ORDERABLES Final Res ult [facility] [address] [place] [address] documented in this encounter Visit Diagnoses Diagnosis Pre-procedure lab exam- Primary Pre-procedural laboratory examination documented in this encounter Additional Health Concerns Infection Onset Date Last Indicated Resolved Time CoV-Risk 06/11/2022 06/11/2022 06/11/2022 4:03 PM EST CoV-Exposed Comment:Positive COVID-19 06/11/2022 06/11/2022 06/11/2022 4:0 3 PM EST COVID-19 06/11/2022 06/11/2022 07/02/2022 1:21 AM EST documented as of this encounter Care Teams Policy Checker Relationship Specialty Start Date End Date Checo Lin DO [email or web address] PCP - General 04/19/17 documented as of this encounter Additional Source Comments The information contained in this document represents components of the legal health record. It is not the complete legal health record.[facility]
--- OUTSIDE RECORDS SUMMARY | 2025-06-06 10:49 | XMS_ITS | Encounter Summary ---
Author Organization [facility] Address [address] [facility] [address] [place] [address] Phone Care Team Providers Care Spinner Fixer Name Role Phone Checo Lin DO Primary Care Provider [phone] Encounter Details Date Type Department Care Team (Latest Contact Info) Description 07/30/2017 Ancillary Orders [facility] [address] [facility] 3rd Floor, [address] [place] [address] Wai Luevano MD [address] [place] [address] [email or web address] Nonrheumatic aortic valve stenosis Social [...] documented as of this encounter Care Teams Spinner Fixer Relationship Specialty Start Date End Date Checo Lin DO [email or web address] PCP - General 04/19/17 documented as of this encounter Additional Source Comments The information contained in this document represents components of the legal health record. It is not the complete legal health record.[facility]
--- OUTSIDE RECORDS SUMMARY | 2025-06-06 10:49 | XMS_ITS | Encounter Summary ---
Author Organization [facility] Address [address] [facility] [address] [place] [address] Phone Care Team Providers Care Chinese Herbalist Name Role Phone Checo Lin DO Primary Care Provider [phone] Encounter Details Date Type Department Care Team ([facility] st Contact Info) Description 03/09/2018 Ancillary Orders Virtual Department [address] [place] [address] Checo Lin DO [address] [facility] [place] [address] [email or web address] Social History Tobacco Use Types Packs/Day Years [...] documented as of this encounter Care Teams Chinese Herbalist Relationship Specialty Start Date End Date TriciaCheco gibbons DO [email or web address] [email or web address] PCP - General 04/19/17 documented as of this encounter Additional Source Comments The information contained in this document represents components of the legal health record. It is not the complete legal health record.[facility]
--- OUTSIDE RECORDS SUMMARY | 2025-06-06 10:49 | XMS_ITS | Encounter Summary ---
Author Organization [facility] Address [address] [facility] [address] [place] [address] Phone Care Team Providers Care Knitting Machine Fixer Name Role Phone Checo Lni Primary Care Provider [phone] Encounter Details Date Type Department Care Team (Late st Contact Info) Description 12/15/2024 Ancillary Orders [facility], X-Ray - [address] [address] Amie Tijerina PA [address] [place] [address] [email or web address] fracture of unspecified thoracic vertebra, [...] clinician's provided indication for this examination in [facility]: Pain COMPARISON: CT CHEST WITH CONTRAST FINDINGS: [...] documented as of this encounter Care Teams Knitting Machine Fixer Relationship Specialty Start Date End Date Checo Lin DO [email or web address] PCP - General 04/19/17 documented as of this encounter Additional Source Comments The information contained in this document represents components of the legal health record. It is not the complete legal health record.[facility]
--- OUTSIDE RECORDS SUMMARY | 2025-06-06 10:49 | XMS_ITS | Encounter Summary ---
Author Organization [facility] Address [address] [facility] [address] [place] [address] Phone Care Team Providers Care Integrity Assessor Name Role Phone Checo Lin DO Primary Care Provider [phone] Encounter Details Date Type Department Care Team ([facility] st Contact Info) Description 02/01/2018 Procedure Pass [facility] [address] [place] [address] Social History Tobacco Use Types Packs/Day Years [...] documented as of this encounter Care Teams Integrity Assessor Relationship Specialty Start Date End Date Checo Lin DO [email or web address] PCP - General 04/19/17 documented as of this encounter Additional Source Comments The information contained in this document represents components of the legal health record. It is not the complete legal health record.[facility]
--- OUTSIDE RECORDS SUMMARY | 2025-06-06 10:49 | XMS_ITS | Encounter Summary ---
Author Organization [facility] Address [address] [facility] [address] [place] [address] Phone Care Team Providers Care Intern Name Role Phone Checo Lin Primary Care Provider Encounter Details Date Type Department Care Team (Latest Contact Info) Description 04/24/2017 Ancillary Orders [facility] [address] [facility] 3rd Floor, [address] [place] [address] Wai Luevano MD [address] [place] [address] [email or web address] Diagnosis unknown Social History Tobacco Use [...] documented as of this encounter Care Teams Intern Relationship Specialty Start Date End Date Checo Lin DO [email or web address] PCP - General 04/19/17 documented as of this encounter Additional Source Comments The information contained in this document represents components of the legal health record. It is not the complete legal health record.[facility]
--- OUTSIDE RECORDS SUMMARY | 2025-06-06 10:49 | XMS_ITS | Encounter Summary ---
Author Organization [facility] Address [address] [place] [facility] [address] [place] [address] Phone Care Team Providers Care Employee Communications Manager Name Role Phone Checo Lin Primary Care Provider [phone] Encounter Details Date Type Department Care Team (Late st Contact Info) Description 03/01/2018 Ancillary Orders Virtual Department 30 [place] [address] Rhoda Villa, MEAT PUMPER [address] [place] [address] [email or web address] Chest pain, unspecified type Social History Tobacco [...] AM EDT) Max BP Systolic 160 mmHg [facility] Max BP Diastolic 80 mmHg [facility] Max HR 146 BPM [facility] Resting HR 65 BPM [facility] Resting BP Systolic 140 mmHg [facility] Resting BP Diastolic 70 mmHg [facility] Peak METS 7.0 METS [facility] Peak HR 146 BPM [facility] Anatomical Region Laterality Modality Heart Other [...] further evaluation. PCP office notified. Dayanna Scanlon, BURR MILL OPERATOR, MPH . Rhoda Villa CNP CV STRESS [...] documented as of this encounter Care Teams Employee Communications Manager Relationship Specialty Start Date End Date Checo Lin DO [email or web address] PCP - General 04/19/17 documented as of this encounter Additional Source Comments The information contained in this document represents components of the legal health record. It is not the complete legal health record.[facility]
--- OUTSIDE RECORDS SUMMARY | 2025-06-06 10:49 | XMS_ITS | Encounter Summary ---
Author Organization [facility] Address [address] [facility] [address] [place] [address] Phone Care Team Providers Care Wastewater Treatment Plant Attendant Name Role Phone Checo Lin Primary Care Provider [phone] Encounter Details Date Type Department Care Team ([facility] st Contact Info) Description 01/23/2022 Procedure [facility] [address] [place] [address] Social History Tobacco Use Types Packs/Day Years [...] documented as of this encounter Care Teams Wastewater Treatment Plant Attendant Relationship Specialty Start Date End Date Checo Lin DO [email or web address] PCP - General 04/19/17 documented as of this encounter Additional Source Comments The information contained in this document represents components of the legal health record. It is not the complete legal health record.[facility]
--- OUTSIDE RECORDS SUMMARY | 2025-06-06 10:49 | XMS_ITS | Encounter Summary ---
Author Organization [facility] Address [address] [facility] [address] [place] [address] Phone Care Team Providers Care Copy Camera Operator Name Role Phone Checo Lin Primary Care Provider [phone] Reason for Referral * MRI/CAT Scan - Closed Specialty Diagnoses / Procedures Referred By Crystal wallace Referred To Contact Radiology Diagnoses Pericardial pain Procedures NC Myocardial Perfusion Pharmacologic Stress Multiple Rhoda Villa CNP Phone: tel: fax: mailto:[email or web address] Referral ID Status Reason Start Date Expiration Date Visits Re quested Visits Authorized [id number] Closed 03/11/2018 05/09/2018 1 1 Encounter Details Date Type Department Care Team (Late st Contact Info) Description 03/09/2018 Ancillary Orders Virtual Department 30 [place] [address] Rhoda Villa CNP [address] [place] [address] Pericardial pain Social History Tobacco Use Types [...] fraction = 67% POS [id number] Rhoda Villa NET WEB DEVELOPER CV NM CARDIAC Final Resul t documented in this encounter Visit Diagnoses Diagnosis Pericardial pain Pericardial pain documented in this encounter Additional Health Concerns Infection Onset Date Last Indicated Resolved Time CoV-Risk 06/11/2022 06/11/2022 06/11/2022 4:03 PM EST CoV-Exposed Comment:Positive COVID-19 06/11/2022 06/11/2022 06/11/2022 4:0 3 PM EST COVID-19 06/11/2022 06/11/2022 07/02/2022 1:21 AM EST documented as of this encounter Care Teams Copy Camera Operator Relationship Specialty Start Date End Date Checo Lin DO [email or web address] PCP - General 04/19/17 documented as of this encounter Additional Source Comments The information contained in this document represents components of the legal health record. It is not the complete legal health record.[facility]
--- OUTSIDE RECORDS SUMMARY | 2025-06-06 10:49 | XMS_ITS | Encounter Summary ---
Author Organization [facility] Address [address] [facility] [address] [place] [address] Phone Care Team Providers Care Senior Business Intelligence Analyst Name Role Phone Checo Lin Primary Care Provider [phone] Encounter Details Date Type Department Care Team (Late st Contact Info) Description 04/24/2017 Ancillary Orders [facility] [address] [place] [address] Wai Luevano MD [address] [facility] [place] [address] [email or web address] Social History Tobacco Use Types Packs/Day Years [...] documented as of this encounter Care Teams Senior Business Intelligence Analyst Relationship Specialty Start Date End Date Checo Lin DO [email or web address] PCP - General 04/19/17 documented as of this encounter Additional Source Comments The information contained in this document represents components of the legal health record. It is not the complete legal health record.[facility]
--- OUTSIDE RECORDS SUMMARY | 2025-06-06 10:50 | XMS_ITS | Encounter Summary ---
Author Organization [facility] Address [address] [address] Phone Care Team Providers Care Manager Title Name Role Phone Checo Lin DO Primary Care Provider [phone] Reason for Referral * MRI/CAT Scan - Closed Specialty Diagnoses / Procedures Referred By Contcarl t Referred To Contact Radiology Diagnoses Localized swelling, mass and lump, trunk Mass of chest wall Procedures CT Chest Checo Lin DO Phone: tel: fax: mailto:[email or web address] Referral ID Status Reason Start Date Expiration Date Visits Re quested Visits Authorized [id number] Closed 09/19/2019 09/18/2020 1 1 Encounter Details Date Type Department Care Team (Late st Contact Info) Description 09/19/2019 Transcribe Orders Virtual Department 30 [place] [address] Checo Lin DO [address] [place] [address] Localized swelling, mass and lump, trunk (Primary [...] documented as of this encounter Care Teams Manager Title Relationship Specialty Start Date End Date Checo Lin DO [email or web address] PCP - General 04/19/17 documented as of this encounter Additional Source Comments The information contained in this document represents components of the legal health record. It is not the complete legal health record.[facility]
--- OUTSIDE RECORDS SUMMARY | 2025-06-06 10:50 | XMS_ITS | Encounter Summary ---
Author Organization [facility] Address [address] [place] [address] Phone Care Team Providers Care Diesel Trailer Mechanic Name Role Phone Checo Lin Primary Care Provider [phone] Encounter Details Date Type Department Care Team (Late st Contact Info) Description 08/25/2018 Ancillary Orders [facility] [address], [address] [place] [address] Enriqueta Hoffman, SEMAJ [address] [place] [address] Palpitations Social History Tobacco Use Types Packs/Day [...] documented as of this encounter Care Teams Diesel Trailer Mechanic Relationship Specialty Start Date End Date Checo Lin DO [email or web address] PCP - General 04/19/17 documented as of this encounter Additional Source Comments The information contained in this document represents components of the legal health record. It is not the complete legal health record.[facility]
--- OUTSIDE RECORDS SUMMARY | 2025-06-06 10:50 | XMS_ITS | Clinical Summary ---
Author Organization [facility] Address [address] [address] Phone Care Team Providers Care Operating Room Aide Name Role Phone Checo Lin Primary Care Provider [phone] Allergies Active Allergy Reactions Criticality Noted Date [...] EST) SODIUM 131(L) 133 - 146 mmol/L [facility] CHLORIDE 89(L) 96 - 108 mmol/L [facility] POTASSIUM 2.8(L) 3.3 - 5.1 mmol/L [facility] CO2 30 21 - 35 mmol/L [facility] BUN 17 6 - 19 mg/dL [facility] CREATININE 0.90 0.5 - 1.5 mg/dL [facility] GLUCOSE 122(H) 70 - 99 mg/dL [facility] CALCIUM 9.2 8.4 - 10.3 mg/dL [facility] EGFR 64 >59 mL/min/1.7 3m2 [facility] Comment:Estimated glomerular filtration rate calculated using the CKD-EPI refit equation. ANION GAP 15 10 - 20 mmol/L [facility] Blood 06/11/2022 2:35 PM EST 06/11/2022 2:48 PM EST us Dianne Ramirez DO LAB BLOOD BKR ORDERABLES Fin al Result [facility] [address] [place], [place] [id number] from Last 3 Months or Most Recently Relevant to Health Maintenance Insurance MEDIC[place] A [place] [id number] [facility] [employer]IC[employer] ENHANCE SUPPLEMENT MEDICARE PART A & B [facility] MEDICARE ENHANCE SUPPLEMENT [facility] Address: [facility] [id number] [place] [id number] MEDICARE PART A & B [facility] MEDIC[employer] ENHANCE SUPPLEMENT MEDICARE PART A & B [facility] MEDICARE ENHANCE SUPPLEMENT MEDICARE PART A & B [facility] MEDICARE ENHANCE SUPPLEMENT [facility] Address: [facility] [id number] [place] [id number] MEDICARE PART A & B [facility] MEDICARE ENHANCE SUPPLEMENT [facility] Address: [facility] [id number] [place] [id number] MEDICARE PART A & B [facility] MEDICARE ENHANCE SUPPLEMENT MEDICARE PART A & B [facility] MEDICARE ENHANCE SUPPLEMENT MEDICARE PART A & B [facility] MEDICARE ENHANCE SUPPLEMENT [facility] Address: [address] [place] [id number] Care Teams Operating Room Aide Relationship Specialty Start Date End Date Checo Lin DO PCP - General 04/19/17 Additional Source Comments The information contained in this document represents components of the legal health record. It is not the complete legal health record.[facility]
--- OUTSIDE RECORDS SUMMARY | 2025-06-06 10:50 | XMS_ITS | Encounter Summary ---
Author Organization [facility] Address [address] [facility] [address] [place] [address] Phone Care Team Providers Care Commercial Management Accountant Name Role Phone Checo Lin DO Primary Care Provider [phone] Encounter Details Date Type Department Care Team (Late st Contact Info) Description 12/06/2019 Procedure Pass [facility] Scan - [address] [address] Social History Tobacco Use Types Packs/Day Years [...] documented as of this encounter Care Teams Commercial Management Accountant Relationship Specialty Start Date End Date Checo Lin DO [email or web address] PCP - General 04/19/17 documented as of this encounter Additional Source Comments The information contained in this document represents components of the legal health record. It is not the complete legal health record.[facility]
--- OUTSIDE RECORDS SUMMARY | 2025-06-06 10:50 | XMS_ITS | Clinical Summary ---
Author Organization [facility] Address [address] [address] Care Team Providers Care Marketing Ambassador Name Role Phone Checo Lin Primary Care Provider [phone] Social History Tobacco Use Types Packs/Day Years [...] age to complete this topic Insurance Medicare [facility] Medicare [facility] Care Teams Marketing Ambassador Relationship Specialty Start Date End Date Checo Lin DO [address] [place] [address] PCP - General Internal Medicine 09/30/22
--- OUTSIDE RECORDS SUMMARY | 2025-06-06 10:50 | XMS_ITS | Encounter Summary ---
Author Organization [facility] Address [address] [place] [address] Phone Care Team Providers Care Media Executive Name Role Phone Checo Lin Primary Care Provider [phone] Encounter Details Date Type Department Care Team (Late st Contact Info) Description 08/25/2018 Ancillary Orders [facility] [address], [address] [place] [address] Enriqueta Hoffman, SEMAJ [address] [place] [address] Palpitations Social History Tobacco Use Types Packs/Day [...] documented as of this encounter Care Teams Media Executive Relationship Specialty Start Date End Date Checo Lin DO [email or web address] PCP - General 04/19/17 documented as of this encounter Additional Source Comments The information contained in this document represents components of the legal health record. It is not the complete legal health record.[facility]
--- OUTSIDE RECORDS SUMMARY | 2025-06-06 10:50 | XMS_ITS | Encounter Summary ---
Author Organization [facility] Address [address] [facility] [address] [place] [address] Phone Care Team Providers Care Shot Packer Name Role Phone Checo Lin Primary Care Provider [phone] Encounter Details Date Type Department Care Team (Late st Contact Info) Description 03/14/2018 Ancillary Orders Virtual Department 30 [place] [address] Rhoda Villa, JENNIFER [address] [place] [address] [email or web address] Pericardial pain Social History Tobacco Use Types [...] AM EDT) Max BP Systolic 190 mmHg [facility] Max BP Diastolic 80 mmHg [facility] Max HR 148 BPM [facility] Resting HR 67 BPM [facility] Resting BP Systolic 162 mmHg [facility] Resting BP Diastolic 80 mmHg [facility] Peak METS 7.0 METS [facility] Peak HR 148 BPM [facility] Anatomical Region Laterality Modality Heart Other 03/14/2018 [...] and will be reported separately. Yun Chun WAREHOUSE SHIPPING RECEIVING CLERK with Dr Luevano . us Rhoda Villa CARD WRITER HAND CV NM CARDIAC Final Resul t documented in this encounter Visit Diagnoses Diagnosis Pericardial pain Pericardial pain documented in this encounter Additional Health Concerns Infection Onset Date Last Indicated Resolved Time CoV-Risk 06/11/2022 06/11/2022 06/11/2022 4:03 PM EST CoV-Exposed Comment:Positive COVID-19 06/11/2022 06/11/2022 06/11/2022 4:0 3 PM EST COVID-19 06/11/2022 06/11/2022 07/02/2022 1:21 AM EST documented as of this encounter Care Teams Shot Packer Relationship Specialty Start Date End Date Checo Lin DO [phone] (work) [email or web address] PCP - General 04/19/17 documented as of this encounter Additional Source Comments The information contained in this document represents components of the legal health record. It is not the complete legal health record.[facility]
--- OUTSIDE RECORDS SUMMARY | 2025-06-06 10:50 | XMS_ITS | Encounter Summary ---
Author Organization [facility] Address [address] [facility] [address] [place] [address] Phone Care Team Providers Care Ui Developer Designer Name Role Phone Checo Lin Primary Care Provider [phone] Encounter Details Date Type Department Care Team (Latest Contact Info) Description 05/23/2021 Transcribe Orders Virtual Department 30 [place] [address] Lanny Arana PA [address] [place] [address] [place] [address] Knee pain, unspecified chronicity, unspecified laterality (Primary [...] documented as of this encounter Care Teams Ui Developer Designer Relationship Specialty Start Date End Date Checo Lin DO PCP - General 04/19/17 documented as of this encounter Additional Source Comments The information contained in this document represents components of the legal health record. It is not the complete legal health record.[facility]
--- OUTSIDE RECORDS SUMMARY | 2025-06-06 10:50 | XMS_ITS | Encounter Summary ---
Author Organization [facility] Address [address] [place] [address] Phone Care Team Providers Care Dynamics Ax Consultant Name Role Phone Triciaedwige Checo Komal VERA Primary Care Provider [phone] Reason for Referral * Consultation (Elective) - Closed Specialty Diagnoses / Procedures Referred By Contac t Referred To Contact Cardiac Rehabilitation Diagnoses S/P TAVR (transcatheter aortic valve replacement) Tony Rhodes MD Phone: tel: fax: mailto:[email or web address] [address] Phone: tel: Referral ID Status Reason Start Date Expiration Date Visits Re quested Visits Authorized [id number] Closed 12/30/2020 12/30/2021 1 1 Encounter Details Date Type Department Care Team (Latest Contact Info) Description 12/30/2020 Transcribe Orders Virtual Department [address] [place] [address] Tony Rhodes MD [id number] [place] [address] [email or web address] S/P TAVR (transcatheter aortic valve replacement) [...] Associated Diagnoses Order Schedule Ambulatory referral to [facility] Cardiac Rehab Outpatient Referral Routine S/P [...] documented as of this encounter Care Teams Dynamics Ax Consultant Relationship Specialty Start Date End Date Checo Lin DO [email or web address] PCP - General 04/19/17 documented as of this encounter Additional Source Comments The information contained in this document represents components of the legal health record. It is not the complete legal health record.[facility]
--- OUTSIDE RECORDS SUMMARY | 2025-06-06 10:50 | XMS_ITS | Encounter Summary ---
Author Organization [facility] Address [address] [facility] [address] [place] [address] Phone Care Team Providers Care Compensation Programs Manager Name Role Phone Checo Lin Primary Care Provider [phone] Encounter Details Date Type Department Care Team (Latest Contact Info) Description 05/14/2021 Transcribe Orders Virtual Department 30 [place] [address] Lanny Arana PA [address] [place] [address] [place] [address] Right leg pain (Primary Dx) Social History [...] documented as of this encounter Care Teams Compensation Programs Manager Relationship Specialty Start Date End Date TriciaCheco [email or web address] PCP - General 04/19/17 documented as of this encounter Additional Source Comments The information contained in this document represents components of the legal health record. It is not the complete legal health record.[facility]
--- OUTSIDE RECORDS SUMMARY | 2025-06-06 10:50 | XMS_ITS | Encounter Summary ---
Author Organization [facility] Address [address] [facility] [address] [place] [address] Phone Care Team Providers Care Adjusto Writer Operator Name Role Phone Checo Lin Primary Care Provider [phone] Encounter Details Date Type Department Care Team (Latest Contact Info) Description 05/02/2021 Transcribe Orders Virtual Department 30 [place] [address] Lanny Arnaa PA [address] [place] [address] [place] [address] Right leg pain (Primary Dx) Social History [...] documented as of this encounter Care Teams Adjusto Writer Operator Relationship Specialty Start Date End Date Checo Lin DO [email or web address] PCP - General 04/19/17 documented as of this encounter Additional Source Comments The information contained in this document represents components of the legal health record. It is not the complete legal health record.[facility]
[2025-06-06 11:18] LABS: Anion Gap 11 (12-20); Blood Urea Nitrogen 20 mg/dL (9-16); Calcium 8.9 mg/dL (8.4-10.2); Carbon Dioxide 29 mmol/L (22-29); Chloride 102 mmol/L (96-108); Estimated Glomerular Filt Rate 57; Potassium 4.3 mmol/L (3.3-5.1); Sodium 138 mmol/L (135-145)
[2025-06-06 11:26] LABS: NT Pro B Type Natriuretic Pept 1396.8 pg/mL (<300)
== END 2025-06-06 09:44 | disposition home or self-care (01) ==
LOC: HO.LAB 09:43
PROVIDERS: PCP Internal Medicine; Visit Provider Internal Medicine Cardiovascular Disease
DX: I42.9 Cardiomyopathy, unspecified (principal)
CPT/HCPCS: 36415; 80048; 83880